=== PATIENT | male | born 1955 | race Caucasian/White ===

== ENCOUNTER 2020-09-07 14:18 | Outpatient (REF) | payer MEDICARE, MEDICAID, SELFPAY | END 2020-09-07 14:19 | disposition home or self-care (01) | LOC: HO.LAB 14:18 | PROVIDERS: Visit Provider Internal Medicine | DX: Z20.828 Contact with and (suspected) exposure to other viral communicable diseases (principal) | CPT/HCPCS: C9803; U0003 ==

== ENCOUNTER 2021-02-28 12:50 | Outpatient (REF) | payer MEDICARE, SELFPAY ==
--- NOTE | ~2021-02-28 | XR_ITS ---
EXAMINATION: XR SHOULDER, RIGHT CLINICAL INFORMATION: Right shoulder pain. COMPARISON: 11/29/2019 right shoulder radiographs. TECHNIQUE: AP external rotation, Grashey, scapular Y, and axillary views of the right shoulder. FINDINGS: The humeral head is positioned mildly superiorly relative to the bony glenoid with narrowing of the subacromial space. Mild calcification is seen in the region of the rotator cuff insertion. Mild right acromioclavicular degenerative joint changes are seen. There is no acute fracture or dislocation. The soft tissues are unremarkable. XR/XR shoulder RT min 2V IMPRESSION: Evidence for chronic rotator cuff tear with associated mild degenerative changes, but no acute abnormality.
== END 2021-02-28 12:51 | disposition home or self-care (01) ==
LOC: HO.XRAY 12:50
PROVIDERS: PCP Internal Medicine; Visit Provider Internal Medicine
DX: M25.511 Pain in right shoulder (principal)
CPT/HCPCS: 73030

== ENCOUNTER → 2021-04-08 13:09 | Outpatient (BNVA) | payer MEDICARE, SELFPAY | PROVIDERS: PCP Internal Medicine; Visit Provider Orthopaedic Surgery | DX: M12.811 Other specific arthropathies, not elsewhere classified, right shoulder (principal) | CPT/HCPCS: 20610; 99212; J1100 ==

== ENCOUNTER → 2021-09-19 10:33 | Outpatient (BNVA) | payer MEDICARE, SELFPAY | PROVIDERS: Visit Provider Orthopaedic Surgery | DX: M12.811 Other specific arthropathies, not elsewhere classified, right shoulder (principal) | CPT/HCPCS: 20610; 99212; J1100 ==

== ENCOUNTER → 2022-03-13 10:07 | Outpatient (BNVA) | payer MEDICARE, MEDICAID, SELFPAY | PROVIDERS: PCP Internal Medicine; Referring Provider Internal Medicine; Visit Provider Surgery | DX: D17.21 Benign lipomatous neoplasm of skin and subcutaneous tissue of right arm (principal) | CPT/HCPCS: 99202 ==

== ENCOUNTER 2023-02-26 08:38 | Outpatient (REF) | payer MEDICARE, MEDICAID, SELFPAY ==
--- NOTE | ~2023-02-26 | XR_ITS ---
EXAMINATION: XR SHOULDER, BILATERAL COMPARISON: None available. . TECHNIQUE: 3 views each shoulder. FINDINGS: RIGHT SHOULDER: There is minimal subluxation of the humeral head in relation to glenoid likely from rotator cuff injury or partial tear. The glenohumeral and AC joint space is maintained normal. No visible acute fracture or dislocation seen. The soft tissues are normal. LEFT SHOULDER: The glenohumeral and AC joint alignment is normal. No visible acute fracture or dislocation seen. The soft tissues are normal. XR/XR shoulder RT min 2V IMPRESSION: Mild superior subluxation of right humeral head in relation to glenoid likely from RC tear or injury. The rest of the right shoulder is unremarkable. Unremarkable left shoulder exam.
--- NOTE | ~2023-02-26 | XR_ITS ---
EXAMINATION: XR SHOULDER, BILATERAL COMPARISON: None available. . TECHNIQUE: 3 views each shoulder. FINDINGS: RIGHT SHOULDER: There is minimal subluxation of the humeral head in relation to glenoid likely from rotator cuff injury or partial tear. The glenohumeral and AC joint space is maintained normal. No visible acute fracture or dislocation seen. The soft tissues are normal. LEFT SHOULDER: The glenohumeral and AC joint alignment is normal. No visible acute fracture or dislocation seen. The soft tissues are normal. XR/XR shoulder LT min 2V IMPRESSION: Mild superior subluxation of right humeral head in relation to glenoid likely from RC tear or injury. The rest of the right shoulder is unremarkable. Unremarkable left shoulder exam.
== END 2023-02-26 08:39 | disposition home or self-care (01) ==
LOC: HO.HOSX 08:38
PROVIDERS: Visit Provider Orthopaedic Surgery
DX: M12.811 Other specific arthropathies, not elsewhere classified, right shoulder (principal); M25.511 Pain in right shoulder; E11.9 Type 2 diabetes mellitus without complications
CPT/HCPCS: 20610; 73030; 99212; J1100

== ENCOUNTER 2023-04-30 09:19 | Outpatient (REF) | payer MEDICARE, MEDICAID, SELFPAY ==
[2023-04-30 12:32] LABS: Alanine Aminotransferase 23 U/L (0-40); Albumin Level 4.1 g/dL (3.5-5.0); Alkaline Phosphatase 72 U/L (39-117); Anion Gap 11 (12-20); Aspartate Amino Transferase 24 U/L (5-37); Bilirubin Total 0.7 mg/dL (0.0-1.0); Blood Urea Nitrogen 12 mg/dL (9-16); Calcium 9.3 mg/dL (8.4-10.2); Carbon Dioxide 28 mmol/L (22-29); Chloride 106 mmol/L (96-108); Estimated Glomerular Filt Rate > 60; Glucose Random 153 mg/dL (60-115); Potassium 4.2 mmol/L (3.3-5.1); Sodium 141 mmol/L (135-145); Total Protein 6.9 g/dL (6.5-8.0)
[2023-04-30 12:52] LABS: Cholesterol 148 mg/dL; HDL Cholesterol 42 mg/dL; LDL Cholesterol Calculated 87 mg/dl; Triglycerides 95 mg/dL
[2023-04-30 15:27] LABS: Reflex LDLD? No
[2023-05-01 03:35] LABS: HBS Num1 2.78 mIU/mL (0-7.99); HBc Num1 0.08 S/CO (0.00-0.79); HBsAGNum1 0.39 S/CO (0.00-0.99); Hepatitis A Antibody IgM 0.33 Index (0-0.79); Hepatitis B Core Antibody Nonreactive (Nonreactive); Hepatitis B Surface Antigen Negative (Negative); ~HepC Num1 0.08 S/CO (0.00-0.79); ~Hepatitis A Antibody IgM Nonreactive (Nonreactive); ~Hepatitis B Surface Antibody NONREACTIVE (Nonreactive); ~Hepatitis C Antibody Nonreactive (Nonreactive)
[2023-05-03 04:49] LABS: TS Negative Control Passed; TS Panel A 1; TS Panel B 2; TS Positive Control Passed; TSpotTB Negative (Negative)
[2023-05-04 21:08] LABS: Rubella IgG Antibody >33.00 Index; Rubeola IgG (Measles) >300.00 AU/mL
== END 2023-04-30 09:20 | disposition home or self-care (01) ==
LOC: HO.HHCL 09:19
PROVIDERS: Visit Provider Internal Medicine
DX: Z00.00 Encounter for general adult medical examination without abnormal findings (principal); M19.049 Primary osteoarthritis, unspecified hand; E11.65 Type 2 diabetes mellitus with hyperglycemia; E78.00 Pure hypercholesterolemia, unspecified; E11.9 Type 2 diabetes mellitus without complications
CPT/HCPCS: 36415; 80053; 80061; 82306; 86481; 86704; 86706; 86709; 86735; 86762; 86765; 86803; 87340

== ENCOUNTER 2023-09-16 09:01 | Outpatient (REF) | payer OTHER, SELFPAY ==
--- NOTE | ~2023-09-16 | US_ITS ---
EXAMINATION: US ABDOMEN COMPLETE CLINICAL INFORMATION: Upper abdominal pain. COMPARISON: Ultrasound abdomen complete 04/09/2017 and 03/29/2015. TECHNIQUE: Real-time imaging of the abdominal viscera. Limited visualization due to bowel gas. FINDINGS: PANCREAS: Limited visualization of pancreatic tail and head. Imaged portion of pancreatic body is unremarkable. ABDOMINAL AORTA: Nonaneurysmal. INFERIOR VENA CAVA: Visualized portions are normal. LIVER: Increased hepatic parenchymal heterogeneity and echogenicity which could be associated with hepatocellular disease/hepatic steatosis and substantially limits visualization. GALLBLADDER: No gallstones. Borderline gallbladder wall thickening of 0.3 cm. COMMON BILE DUCT: Normal in caliber measuring 0.3 cm in diameter. RIGHT KIDNEY: Midpole 1.4 cm cyst with benign features. There is no indication for follow-up imaging. No hydronephrosis or renal calculi. The kidney measures 11.3 cm in maximum dimension. LEFT KIDNEY: Normal. No hydronephrosis. No renal calculi or focal parenchymal lesions. The kidney measures 11.4 cm in maximum dimension. SPLEEN: Normal. The spleen measures 11.3 cm in maximum dimension. FREE FLUID: None. US/US abdomen complete IMPRESSION: 1. Increased hepatic parenchymal heterogeneity and echogenicity which could be associated with hepatocellular disease/hepatic steatosis and substantially limits visualization. 2. Borderline gallbladder wall thickening of 0.3 cm. No gallstones.
== END 2023-09-16 09:02 | disposition home or self-care (01) ==
LOC: HO.US 09:01
PROVIDERS: PCP Internal Medicine; Visit Provider Internal Medicine
DX: R10.10 Upper abdominal pain, unspecified (principal)
CPT/HCPCS: 76700

== ENCOUNTER 2024-01-26 10:10 | Outpatient (AMB) | payer OTHER, SELFPAY ==
--- NOTE | 2024-01-26 10:14 | MHC.OFFVIS ---
Vital Signs 01/26/24 10:20 Height 5 ft 5 in Weight 154 lb BMI 25.6 BP 111/60 Blood Pressure Location Lt brachial Position Sitting Pulse 83 Intake Visit Reasons: Cholecysttis Intake Note: Patient new consult for Cholecystitis Patient cc: bloating, denies any other GI issues. Rda Required: No Accompanied by: Self / Same As Patient Allergies No Known Allergies Allergy (Verified 01/26/24 10:19) Medication List - Last Reconciled 01/26/24 by Desi Benoit [facility]- aspirin 81 mg PO DAILY doxazosin 4 mg PO DAILY esomeprazole magnesium (Nexium) 40 mg PO DAILY gabapentin 300 mg PO DAILY glipizide 10 mg PO DAILY ketotifen fumarate 0.025%(0.035%) ([place]) 0 drps ophthalmic (eye) loratadine 10 mg PO DAILY metoprolol tartrate 12.5 mg PO DAILY multivitamin with folic acid 400 mcg (Daily-Marvin (with folic acid)) 1 tab PO DAILY semaglutide (Ozempic) 2 mg subcut QWEEK sennosides (Natural Senna Laxative) 17.2 mg (2 x 8.6 mg) PO BEDTIME simvastatin 40 mg PO QPM sitagliptin phosphate (Januvia) 25 mg PO DAILY HPI HPI Cholecysttis: Details: 68-year-old male with past medical history of diabetes, hyperlipidemia, hypertension, GERD is here today for initial consultation. Patient was sent by PCP for evaluating of his gallbladder. Patient had ultrasound in August that showed 3 mm thickness of the gallbladder wall which is high of normal without sludge or stones. Patient denies any right upper quadrant pain or cramping at any time or postprandially. Patient does admit to have pain on the left side of his abdomen mainly in the left upper quadrant. Occasionally patient reports to have left lower quadrant pain. Patient reports to be feeling very gassy and very bloated no matter what he eats. Patient denies any nausea or vomiting. Patient admits to be constipated. Bowel movements every few days and when he has a bowel movement he does not feel like he empties completely. Patient denies any melena, hematochezia, unintentional weight loss or ribbon like stools. Patient denies any dyspepsia, dysphagia [facility] Medical History (Updated 02/26/23 @ 11:33 by Christiano Hatfield) Hypercholesterolemia Diabetes mellitus Surgical History History of eye surgery History of shoulder surgery Social History Alcohol intake: never Patient Tobacco Use Status: Former Tobacco user Current occupational status: disabled Current occupation: rt hand Review of Systems Const Denies weight gain and Denies weight loss ENT Reports no additional complaints, Denies dysphagia and Denies odynophagia Card Reports no additional complaints Resp Reports no additional complaints GI Reports abdominal pain (LUQ), Denies belching, Denies melena, Denies bloating, Denies change in bowel habits, Reports constipation, Denies dysphagia, Denies excessive flatus, Denies dyspepsia, Denies heartburn, Denies diarrhea, Denies loose stools, Denies nausea, Denies odynophagia and Denies vomiting Reports no additional complaints Musc Reports no additional complaints Neuro Reports no additional complaints Psych Reports no additional complaints Endo Reports no additional complaints Physical Exam Vital Signs: Last Vital Signs Pulse 83 01/26/24 10:20 BP 111/60 01/26/24 10:20 BMI result Body Mass Index 25.6 Const General: healthy appearing, no acute distress and well developed Nutritional Appearance: well nourished Orientation/consciousness: patient oriented x3 Resp Effort & Inspection: normal respiratory effort, able to speak in complete sentences, no tracheal deviation and symmetric chest movement Auscultation: clear to auscultation bilaterally Cardio Rate: regular rate GI Inspection: Yes normal to inspection and No distended Palpation (GI): Soft to palpation, not firm, nontender and No hepatosplenomegaly present Auscultation: normal bowel sounds General: Yes no CVA tenderness Back/Spine/Pelvis Back: no CVA tenderness Skin General skin exam: elasticity normal, turgor normal and dry skin Neuro General: patient oriented x3 Psych Appearance: grossly normal Mental Status: mental status grossly normal Results Reviewed Results Reviewed: ABDOMINAL ULTRASOUND FROM AUGUST OF 2023 FINDINGS: PANCREAS: Limited visualization of pancreatic tail and head. Imaged portion of pancreatic body is unremarkable. ABDOMINAL AORTA: Nonaneurysmal. INFERIOR VENA CAVA: Visualized portions are normal. LIVER: Increased hepatic parenchymal heterogeneity and echogenicity which could be associated with hepatocellular disease/hepatic steatosis and substantially limits visualization. GALLBLADDER: No gallstones. Borderline gallbladder wall thickening of 0.3 cm. COMMON BILE DUCT: Normal in caliber measuring 0.3 cm in diameter. RIGHT KIDNEY: Midpole 1.4 cm cyst with benign features. There is no indication for follow-up imaging. No hydronephrosis or renal calculi. The kidney measures 11.3 cm in maximum dimension. LEFT KIDNEY: Normal. No hydronephrosis. No renal calculi or focal parenchymal lesions. The kidney measures 11.4 cm in maximum dimension. SPLEEN: Normal. The spleen measures 11.3 cm in maximum dimension. FREE FLUID: None. US/US abdomen complete IMPRESSION: 1. Increased hepatic parenchymal heterogeneity and echogenicity which could be associated with hepatocellular disease/hepatic steatosis and substantially limits visualization. 2. Borderline gallbladder wall thickening of 0.3 cm. No gallstones. Assessment & Plan Assessment & Plan (1) Abdominal pain, LUQ (left upper quadrant): Code(s): R10.12 - Left upper quadrant pain (2) Postprandial abdominal bloating: Code(s): R14.0 - Abdominal distension (gaseous) (3) Constipation: Code(s): K59.00 - Constipation, unspecified Qualifiers: Constipation type: slow transit constipation Qualified Code(s): K59.01 - Slow transit constipation (4) Chronic left lower quadrant pain: Code(s): R10.32 - Left lower quadrant pain; G89.29 - Other chronic pain (5) GERD (gastroesophageal reflux disease): Code(s): K21.9 - Gastro-esophageal reflux disease without esophagitis Qualifiers: Esophagitis presence: esophagitis presence not specified Qualified Code(s): K21.9 - Gastro-esophageal reflux disease without esophagitis Plan Patient had suboptimal control of his diabetes. Metformin was causing him diarrhea and abdominal discomfort. Patient will started on Ozempic couple months ago and is doing well. However patient does admit to have acid reflux. States that omeprazole has not been working. Will start Nexium daily. Patient was encouraged to avoid dietary triggers and late night snacking. Staying upright for minimum 3 hours after meals discussed with patient. Patient was encouraged to increase fluid intake and activity to promote better bowel motility. Low FODMAP diet discussed with patient. List of food recommended as well as list of food to avoid given to patient. Patient will also start taking Senokot daily to help him eliminate his bowels better. He will return in 5-6 weeks to re-evaluate, sooner on as needed basis. Will hold off on checking his lipase or liver enzymes as his pain is mainly located in the left lower quadrant. Possible gas trapping pain in sigmoid colon, possible diverticulosis unlikely diverticulitis. Patient is agreeable to of care and verbalizes understanding of instructions. He was given the opportunity to ask questions and all questions answered Thank you for allowing me to participate in his care Medications: New esomeprazole magnesium (Nexium) 40 mg PO DAILY 30 caps 5RF K21.9 - Gastro-esophageal reflux disease without esophagitis sennosides (Natural Senna Laxative) 17.2 mg (2 x 8.6 mg) PO BEDTIME 60 tabs 3RF constipation K59.00 - Constipation, unspecified Coding Level of Care Code New Pt Level 4 (14827) Diagnoses Abdominal pain, LUQ (left upper quadrant) R10.12 Postprandial abdominal bloating R14.0 Slow transit constipation K59.01 Constipation type: slow transit constipation Chronic left lower quadrant pain R10.32; G89.29 Gastroesophageal reflux disease, unspecified whether esophagitis present K21.9 Esophagitis presence: esophagitis presence not specified Time Spent (min) 45 Comment 30 minutes spent with patient and additional 10 minutes spent reviewing his records
[2024-01-26 10:20] VITALS: BP 111/60; PULSE 83; BMI 25.6
== END 2024-01-26 10:50 | disposition home or self-care (01) ==
PROVIDERS: PCP Internal Medicine; Visit Provider Nurse Practitioner Family
DX: R10.12 Left upper quadrant pain (principal); R14.0 Abdominal distension (gaseous); K59.01 Slow transit constipation; R10.32 Left lower quadrant pain; G89.29 Other chronic pain; K21.9 Gastro-esophageal reflux disease without esophagitis
CPT/HCPCS: 99204

== ENCOUNTER → 2024-01-26 10:10 | Outpatient (BNVA) | payer OTHER, SELFPAY | PROVIDERS: PCP Internal Medicine; Visit Provider Nurse Practitioner Family | DX: R10.12 Left upper quadrant pain (principal); R14.0 Abdominal distension (gaseous); K59.01 Slow transit constipation; G89.29 Other chronic pain; R10.32 Left lower quadrant pain; K21.9 Gastro-esophageal reflux disease without esophagitis; E11.9 Type 2 diabetes mellitus without complications | CPT/HCPCS: 99202 ==

== ENCOUNTER 2024-04-27 09:27 | Outpatient (AMB) | payer OTHER, SELFPAY ==
--- NOTE | 2024-04-27 09:35 | MHC.OFFVIS ---
Vital Signs 04/27/24 09:43 Height 5 ft 5 in Weight 156 lb 15.506 oz BMI 26.1 BP 120/70 Blood Pressure Location Rt brachial Position Sitting Pulse 76 Pulse Source Pulse Oximeter Pulse Oximetry (%) 96 Oxygen Delivery Method Room Air Intake Visit Reasons: 3 mos FUV. Intake Note: Rajan presents in office today for a scheduled 3 mos FUV. CC; Rajan was rx'd senna and nexium at their last visit. No labs were ordered. Pt reports that their sx have improved since their last visit. Pt denies any persistent sx or concerns at this time. Residential Building Inspector Required: No Allergies No Known Allergies Allergy (Verified 04/27/24 09:37) HPI HPI 3 mos FUV.: Details: LAST VISIT: Abdominal pain, LUQ (left upper quadrant) Postprandial abdominal bloating Constipation Chronic left lower quadrant pain GERD (gastroesophageal reflux disease) Plan Patient had suboptimal control of his diabetes. Metformin was causing him diarrhea and abdominal discomfort. Patient will started on Ozempic couple months ago and is doing well. However patient does admit to have acid reflux. States that omeprazole has not been working. Will start Nexium daily. Patient was encouraged to avoid dietary triggers and late night snacking. Staying upright for minimum 3 hours after meals discussed with patient. Patient was encouraged to increase fluid intake and activity to promote better bowel motility. Low FODMAP diet discussed with patient. List of food recommended as well as list of food to avoid given to patient. Patient will also start taking Senokot daily to help him eliminate his bowels better. He will return in 5-6 weeks to re-evaluate, sooner on as needed basis. Will hold off on checking his lipase or liver enzymes as his pain is mainly located in the left lower quadrant. Possible gas trapping pain in sigmoid colon, possible diverticulosis unlikely diverticulitis. Patient is agreeable to of care and verbalizes understanding of instructions. He was given the opportunity to ask questions and all questions answered ? Thank you for allowing me to participate in his care Medications New esomeprazole magnesium (Nexium) 40 mg PO DAILY 30 caps 5RF K21.9 sennosides (Natural Senna Laxative) 17.2 mg (2 x 8.6 mg) PO BEDTIME 60 tabs 3RF constipation K59.00 TODAY'S VISIT Patient is here today follow-up. Patient reports that he finishes radiation treatment yesterday for prostate CA. patient continues to have postprandial abdominal bloating and left upper quadrant pain. Occasional right upper quadrant pain however not related to meals. Patient does admit that depending on what he eats he will have abdominal bloating. He continues to have trouble moving his bowels. Patient reports that he never received Senokot from pharmacy. Patient denies any nausea or vomiting. Denies any melena, hematochezia. Patient reports that his last colonoscopy was more than 10 years ago. Patient denies any family history of CRC symptoms of acid reflux are suppressed for the most part. Patient Nexium and reports that he is feeling better. Denies dyspepsia, dysphagia or odynophagia. PFSH Medical History Hypercholesterolemia Diabetes mellitus Surgical History History of eye surgery History of shoulder surgery Social History Alcohol intake: never Patient Tobacco Use Status: Former Tobacco user Current occupational status: disabled Current occupation: rt hand Review of Systems Const Denies weight gain and Denies weight loss ENT Reports no additional complaints, Denies dysphagia and Denies odynophagia Card Reports no additional complaints Resp Reports no additional complaints GI Reports abdominal pain (LUQ, RUQ), Denies belching, Denies melena, Denies bloating, Denies change in bowel habits, Reports constipation, Denies dysphagia, Denies excessive flatus, Denies dyspepsia, Denies heartburn, Denies diarrhea, Denies loose stools, Denies nausea, Denies odynophagia and Denies vomiting Reports no additional complaints Musc Reports no additional complaints Neuro Reports no additional complaints Psych Reports no additional complaints Endo Reports no additional complaints Physical Exam Vital Signs: Last Vital Signs Pulse 76 04/27/24 09:43 BP 120/70 08/07/24 09:43 Pulse Ox 96 04/27/24 09:43 Oxygen Delivery Method Room Air 04/27/24 09:43 BMI result Body Mass Index 26.1 Const General: healthy appearing, no acute distress and well developed Nutritional Appearance: well nourished Orientation/consciousness: patient oriented x3 Resp Effort & Inspection: normal respiratory effort, able to speak in complete sentences, no tracheal deviation and symmetric chest movement Auscultation: clear to auscultation bilaterally Cardio Rate: regular rate GI Inspection: Yes normal to inspection and No distended Palpation (GI): Soft to palpation, not firm, nontender and No hepatosplenomegaly present Auscultation: normal bowel sounds General: Yes no CVA tenderness Back/Spine/Pelvis Back: no CVA tenderness Skin General skin exam: elasticity normal, turgor normal and dry skin Neuro General: patient oriented x3 Psych Appearance: grossly normal Mental Status: mental status grossly normal Assessment & Plan Assessment & Plan (1) Abdominal pain, LUQ (left upper quadrant): Code(s): R10.12 - Left upper quadrant pain (2) Postprandial abdominal bloating: Code(s): R14.0 - Abdominal distension (gaseous) (3) Constipation: Code(s): K59.00 - Constipation, unspecified Qualifiers: Constipation type: slow transit constipation Qualified Code(s): K59.01 - Slow transit constipation (4) Chronic left lower quadrant pain: Code(s): R10.32 - Left lower quadrant pain; G89.29 - Other chronic pain (5) GERD (gastroesophageal reflux disease): Code(s): K21.9 - Gastro-esophageal reflux disease without esophagitis Qualifiers: Esophagitis presence: esophagitis presence not specified Qualified Code(s): K21.9 - Gastro-esophageal reflux disease without esophagitis (6) RUQ abdominal pain: Code(s): R10.11 - Right upper quadrant pain Plan Continue Nexium. Avoid dietary triggers and late night snacking. Staying upright for minimum 3 hours after meals patient. Patient will start taking senna daily. Increase fluid intake and activity to promote better bowel motility. Patient continues to have right upper quadrant pain, however mainly he reports left upper quadrant discomfort will send patient for HIDA scan. Patient will return in 2 months to discuss going for colonoscopy. He is agreeable to this plan and verbalizes understanding of instructions. He was given the opportunity to ask questions and all questions answered. Thank you for allowing me to participate in his care Orders: Orders NM hepatobiliary w pharm Today R10.11 - Right upper quadrant pain Medications: Refilled sennosides (Natural Senna Laxative) 17.2 mg (2 x 8.6 mg) PO BEDTIME 60 tabs 3RF constipation K59.00 - Constipation, unspecified esomeprazole magnesium (Nexium) 40 mg PO DAILY 30 caps 5RF K21.9 - Gastro-esophageal reflux disease without esophagitis Coding Level of Care Code Est Pt Level 3 (18851) Diagnoses Abdominal pain, LUQ (left upper quadrant) R10.12 Postprandial abdominal bloating R14.0 Slow transit constipation K59.01 Constipation type: slow transit constipation Chronic left lower quadrant pain R10.32; G89.29 Gastroesophageal reflux disease, unspecified whether esophagitis present K21.9 Esophagitis presence: esophagitis presence not specified RUQ abdominal pain R10.11 Time Spent (min) 25 Comment 15 minutes spent with patient and additional 10 minutes spent reviewing his records
[2024-04-27 09:43] VITALS: BP 120/70; PULSE 76; O2SAT 96; BMI 26.1
== END 2024-04-27 10:07 | disposition home or self-care (01) ==
PROVIDERS: PCP Internal Medicine; Visit Provider Nurse Practitioner Family
DX: R10.12 Left upper quadrant pain (principal); R14.0 Abdominal distension (gaseous); K59.01 Slow transit constipation; R10.32 Left lower quadrant pain; G89.29 Other chronic pain; K21.9 Gastro-esophageal reflux disease without esophagitis; R10.11 Right upper quadrant pain
CPT/HCPCS: 99213

== ENCOUNTER → 2024-04-27 09:27 | Outpatient (BNVA) | payer OTHER, SELFPAY | PROVIDERS: PCP Internal Medicine; Visit Provider Nurse Practitioner Family | DX: K21.9 Gastro-esophageal reflux disease without esophagitis (principal); K59.01 Slow transit constipation; R10.12 Left upper quadrant pain; R14.0 Abdominal distension (gaseous); R10.32 Left lower quadrant pain; R10.11 Right upper quadrant pain; G89.29 Other chronic pain | CPT/HCPCS: 99212 ==

== ENCOUNTER 2024-05-28 09:54 | Outpatient (REF) | payer OTHER, SELFPAY ==
[2024-05-28 12:00] LABS: Anion Gap 12 (12-20); Blood Urea Nitrogen 13 mg/dL (9-16); Calcium 9.6 mg/dL (8.4-10.2); Carbon Dioxide 27 mmol/L (22-29); Chloride 102 mmol/L (96-108); Cholesterol 182 mg/dL (<200); Estimated Glomerular Filt Rate > 60; Glucose Random 167 mg/dL (60-115); HDL Cholesterol 52 mg/dL (>40); LDL Cholesterol Calculated 111 mg/dL (<100); Potassium 4.1 mmol/L (3.3-5.1); Sodium 137 mmol/L (135-145); Triglycerides 96 mg/dL (<150)
[2024-05-28 12:06] LABS: TSH reflex Free T4 1.05 uIU/mL (0.32-4.0); Vitamin D 25-OH Total 27.9 ng/mL (>30)
[2024-05-28 12:12] LABS: Reflex LDLD? No
== END 2024-05-28 09:55 | disposition home or self-care (01) ==
LOC: HO.LAB 09:54
PROVIDERS: PCP Internal Medicine; Visit Provider Internal Medicine
DX: I10 Essential (primary) hypertension (principal)
CPT/HCPCS: 36415; 80048; 80061; 82306; 84443

== ENCOUNTER → 2024-06-10 08:27 | Outpatient (REF) | payer OTHER, SELFPAY ==
--- NOTE | ~2024-06-10 | NM_ITS ---
EXAMINATION: BILIARY TRACT IMAGING STUDY WITH CCK CLINICAL INFORMATION: Right upper quadrant abdominal pain.. COMPARISON: Abdominal ultrasound done on 09/16/2023.. TECHNIQUE: Serial gamma scintillation camera images were obtained over the abdomen for a total observation period of 60 minutes following the intravenous administration of 5.0 mCi Tc-99m mebrofenin. FINDINGS: There is good concentration of activity in the liver by 5 minutes post injection. Biliary activity is visualized by 10 minutes. The gallbladder is well visualized by 20 minutes. Small bowel is well visualized by 77 minutes. At 60 minutes post radiopharmaceutical injection, a 30-minute infusion of 1.38 micrograms Sincalide was then begun and an additional 40 minutes of images were obtained. There is poor emptying of the gallbladder. By the end of the study there is good clearance of activity from the liver and visualization of diffuse small bowel activity. The calculated gallbladder ejection fraction is 22% (Normal range of gallbladder ejection fraction is between 35-80%; GBEF <35% is considered biliary hypokinesia and >80% is considered biliary hyperkinesia; Ref. #1-Clinical Journal of Gastroenterology (2020) 14:1620-9273; Ref.#2-[email or web address]). NM/NM hepatobiliary w pharm IMPRESSION: Visualization of the gallbladder is evidence of a patent cystic duct and strong evidence against the diagnosis of acute cholecystitis. The common bile duct is patent. Gallbladder emptying and ejection fraction are abnormal. Liver function appears normal. Electronically signed by: Aan Pickard MD 06/10/2024 03:07 PM EDT
== END ==
LOC: HO.NUCMED 08:27
PROVIDERS: PCP Internal Medicine; Visit Provider Nurse Practitioner Family
DX: R10.11 Right upper quadrant pain (principal)
CPT/HCPCS: 78227; A9537; J2805

== ENCOUNTER 2024-08-30 07:22 | Day surgery (SDC) | payer OTHER, SELFPAY ==
[2024-08-26 09:28] VITALS: BMI 26.0
--- NOTE | 2024-08-29 10:03 | HO.ANESPROP2 ---
Documented by User: Rasheeda Carcamo NP 08/29/24 10:03 HPI - Anesthesia Eval Consult details Narrative: 69yo M for Colonoscopy Anesthesia Pre-Procedure Meds Is the patient on any of the following meds?: GLP1/DPP4 and SGLT2 Inhib PMFSH Active Problems Active Problems: All Active Problems Diabetes mellitus (Acute) Lipoma of arm (Acute) Rotator cuff arthropathy of right shoulder (Acute) Past Medical History Medical History (Updated 08/30/24 @ 07:35 by Callie Marlow RN) Prostate cancer Hypercholesterolemia Diabetes mellitus Surgical History Surgical History (Updated 08/30/24 @ 07:34 by Callie Marlow RN) History of eye surgery History of shoulder surgery Social History Social History Alcohol intake: never Patient Tobacco Use Status: Former Tobacco user Use of substances other than those prescribed or required for medical reasons: No Are you DNR?: No Advance Directives: No Advance Directives Information Provided: Yes Recently lost weight without trying: No Nutrition Risks: No Nutritional Risk Poor oral hygiene: No Current occupational status: disabled Current occupation: rt hand Meds Allergies Allergy/AdvReac Type Severity Reaction Status Date / Time No Known Allergies Allergy Verified 04/27/24 09:37 Home Medications ?Medication ?Instructions ?Recorded ?Confirmed ?Last Taken ?Type aspirin 81 mg tablet,delayed 81 mg PO DAILY 03/13/22 01/26/24 Unknown History release doxazosin 4 mg tablet 4 mg PO DAILY 03/13/22 01/26/24 Unknown History gabapentin 300 mg capsule 300 mg PO DAILY 03/13/22 01/26/24 Unknown History ketotifen fumarate 0.025 % (0.035 0 drp ophthalmic (eye) 03/13/22 01/26/24 Unknown History %) eye drops (Alaway) loratadine 10 mg tablet 10 mg PO DAILY 03/13/22 01/26/24 Unknown History multivitamin with folic acid 400 1 tab PO DAILY 03/13/22 01/26/24 Unknown History mcg tablet (Daily-Marvin (with folic acid)) simvastatin 40 mg tablet 40 mg PO QPM 03/13/22 01/26/24 Unknown History sitagliptin phosphate 25 mg tablet 25 mg PO DAILY 01/26/24 01/26/24 Unknown History (Gera) blood sugar diagnostic (OneTouch #10 ea 04/27/24 Unknown History Verio test strips) empagliflozin 25 mg tablet 25 mg PO DAILY 04/27/24 Unknown History (Jardiance) glipizide 10 mg tablet 10 mg PO BID 04/27/24 Unknown History latanoprost 0.005 % eye drops drp ophthalmic (eye) 04/27/24 Unknown History lisinopril 5 mg tablet 5 mg PO DAILY 04/27/24 Unknown History metoprolol succinate 25 mg 25 mg PO DAILY 04/27/24 Unknown History tablet,extended release 24 hr semaglutide 0.25 mg or 0.5 mg (2 mg subcut 04/27/24 Unknown History mg/3 mL) subcutaneous pen injector (Ozempic) tadalafil 20 mg tablet mg PO DIRECTED 04/27/24 Unknown History tamsulosin 0.4 mg capsule 0.8 mg PO DAILY 04/27/24 Unknown History semaglutide 0.25 mg or 0.5 mg (2 0.5 mg subcut QWEEK 08/29/24 08/21/24 History mg/3 mL) subcutaneous pen injector (Ozempic) Exam Height,Weight and Vital Signs: Height 5 ft 5 in Weight 70.76 kg Assessment and Plan Assessment Anesthesia Assessment: Chart Reviewed Documented by User: Bruce Frank MD 08/30/24 08:55 [facility] Past Medical History Medical History (Updated 08/30/24 @ 07:35 by Callie Marlow RN) Prostate cancer Hypercholesterolemia Diabetes mellitus Family History Family history of problems with anesthesia: No Surgical History Surgical History (Updated 08/30/24 @ 07:34 by Callie Marlow RN) History of eye surgery History of shoulder surgery History of Problems with Anesthesia: No Social History Social History Alcohol intake: never Patient Tobacco Use Status: Former Tobacco user Use of substances other than those prescribed or required for medical reasons: No Are you DNR?: No Advance Directives: No Advance Directives Information Provided: Yes Recently lost weight without trying: No Nutrition Risks: No Nutritional Risk Poor oral hygiene: No Current occupational status: disabled Current occupation: rt hand Meds Allergies Allergy/AdvReac Type Severity Reaction Status Date / Time No Known Allergies Allergy Verified 04/27/24 09:37 Home Medications ?Medication ?Instructions ?Recorded ?Confirmed ?Last Taken ?Type aspirin 81 mg tablet,delayed 81 mg PO DAILY 03/13/22 01/26/24 Unknown History release doxazosin 4 mg tablet 4 mg PO DAILY 03/13/22 01/26/24 Unknown History gabapentin 300 mg capsule 300 mg PO DAILY 03/13/22 01/26/24 Unknown History ketotifen fumarate 0.025 % (0.035 0 drp ophthalmic (eye) 03/13/22 01/26/24 Unknown History %) eye drops (Alaway) loratadine 10 mg tablet 10 mg PO DAILY 03/13/22 01/26/24 Unknown History multivitamin with folic acid 400 1 tab PO DAILY 03/13/22 01/26/24 Unknown History mcg tablet (Daily-Marvin (with folic acid)) simvastatin 40 mg tablet 40 mg PO QPM 03/13/22 01/26/24 Unknown History sitagliptin phosphate 25 mg tablet 25 mg PO DAILY 01/26/24 01/26/24 Unknown History (Januvia) blood sugar diagnostic (OneTouch #10 ea 04/27/24 Unknown History Verio test strips) empagliflozin 25 mg tablet 25 mg PO DAILY 04/27/24 Unknown History (Jardiance) glipizide 10 mg tablet 10 mg PO BID 04/27/24 Unknown History latanoprost 0.005 % eye drops drp ophthalmic (eye) 04/27/24 Unknown History lisinopril 5 mg tablet 5 mg PO DAILY 04/27/24 Unknown History metoprolol succinate 25 mg 25 mg PO DAILY 04/27/24 Unknown History tablet,extended release 24 hr semaglutide 0.25 mg or 0.5 mg (2 mg subcut 04/27/24 Unknown History mg/3 mL) subcutaneous pen injector (Ozempic) tadalafil 20 mg tablet mg PO DIRECTED 04/27/24 Unknown History tamsulosin 0.4 mg capsule 0.8 mg PO DAILY 04/27/24 Unknown History semaglutide 0.25 mg or 0.5 mg (2 0.5 mg subcut QWEEK 08/29/24 08/21/24 History mg/3 mL) subcutaneous pen injector (Ozempic) Assessment and Plan Assessment Anesthesia Assessment: Anesthesia Plan Discussed Final Anesthetic Review Family History of Problems with Anesthesia: No History of Problems with Anesthesia: No NPO: Yes ASA Class: III Final Preanesthetic Review: No Changes in Pt Med Stat, Meds/Allgs Chart Reviewed, Consent Obtained/Reviewed and Anes Risks/Benef Reviewed Patient Risk: Intermediate Procedure Risk: Low Anesthetic Plan Anesthetic Plan: MAC: and Agree w/ Assess. and Plan Disposition: Standard PACU
[2024-08-30 07:36] VITALS: BMI 24.2
[2024-08-30 07:46] VITALS: BP 123/78; PULSE 85; RESP 16; TEMP 36.9; O2SAT 96
[2024-08-30 07:54] LABS: Glucose, Whole Blood 204 mg/dL (60-115)
[2024-08-30] MEDS: Lactated Ringers 1,000 ML 100 ML IVCONT (07:58)
--- NOTE | 2024-08-30 08:01 | MHC.SHP ---
Pre-Procedural Eval Section A - 24 Hr Update-Section A only Date of Service: 08/30/24 Section B - Complete if H&P > 30 days Chief Complaint: LUQ pain, hx of polyps Present Medications: see Short Stay Collaborative assessment Allergies: Allergies Allergy/AdvReac Type Severity Reaction Status Date / Time No Known Allergies Allergy Verified 04/27/24 09:37 Review of Systems Review of Systems Comment: Ten point ROS negative Exam Exam Comment: Gen appear: No acute distress HEENT: no icterus Chest: No overt resp distress Abd: soft, nontender, nondistended Psych: Stable affect, answering questions appropriately Neuro: A/Ox3 noted to move all extremities spontaneously Ext: no peripheral edema Plan Diagnosis/Plan: Unchanged I have reviewed the history and physical and performed a pertinent physical examination on my patient. No changes have occurred unless specified. Time Spent With Patient Time: Total time managing care of this patient today ____ minutes.
--- NOTE | 2024-08-30 09:11 | P.OPN-COLO_ITS ---
Colonoscopy Operative Note Operative Note Date of Service: 08/30/24 Narrative: Procedure: Colonoscopy Indication: History of polyps Endoscopist: Micaela Lake MD Anesthesia Provider: Dr Bruce Frank Anesthesia type: MAC Instrument: Olympus [id number]-[id number] Consent: Indication, risks vs benefits, and alternatives were discussed with the patient who gave written informed consent to proceed. EKG, pulse, pulse oximetry and blood pressure were monitored throughout the procedure. Please see anesthesia flowsheet. Procedure: The patient was brought to the procedure room and placed in the left lateral decubitus position. IV medications were administered by the anesthesia provider in attendance. A digital rectal exam was performed which was normal. A distal attachment cap was affixed to the tip of the colonoscope which was then inserted through the anus and advanced through the colon to the cecum at 75 cm,and terminal ileum. Appendiceal orifice and ileocecal valve were identified. Mucosa was carefully examined under high definition white light as the instrument was slowly withdrawn in a retrograde panoramic fashion. Retroflexion was performed in ascending colon and rectum. The procedure was not difficult. There were no immediate obvious complications. The quality of the prep was BBPS: 2+3+2 = adequate Withdrawal time 11 minutes. Limitations: No limitations. Findings: Mucosa: Edema and loss of normal vascular pattern noted throughout the colon dolly on the LEFT side suspicious for underlying microscopic colitis. Cold forceps biopsies were taken from the right and left side. Protruding lesions: * Large internal hemorrhoids without stigmata of recent bleeding. Excavated lesions: * Moderate diverticulosis of left sided colon. Impression: 1. Abnormal colon mucosa (biopsy) 2. Internal hemorrhoids 3. Diverticulosis Recommendations: - Follow path results. - Repeat colonoscopy in 10 years if patient in good health.
[2024-08-30 09:14] VITALS: BP 95/61; PULSE 89; RESP 18; TEMP 36.7; O2SAT 95
[2024-08-30 09:31] VITALS: BP 117/77; PULSE 84; RESP 18; TEMP 36.7; O2SAT 97
== END 2024-08-30 09:53 | disposition home or self-care (01) ==
PROVIDERS: PCP Internal Medicine; Visit Provider Internal Medicine
PROC: 0DJD8ZZ Inspection of Lower Intestinal Tract, Via Natural or Artificial Opening Endoscopic (ICD-10-PCS; CPT 45378; principal; 2024-08-30 08:30)
DX: R10.12 Left upper quadrant pain (principal); G89.29 Other chronic pain; Z86.0101 Personal history of adenomatous and serrated colon polyps; K63.9 Disease of intestine, unspecified; K57.30 Diverticulosis of large intestine without perforation or abscess without bleeding; K64.8 Other hemorrhoids; R14.0 Abdominal distension (gaseous); K59.01 Slow transit constipation; K21.9 Gastro-esophageal reflux disease without esophagitis; C61 Malignant neoplasm of prostate; Z92.3 Personal history of irradiation; E11.9 Type 2 diabetes mellitus without complications; E78.00 Pure hypercholesterolemia, unspecified; Z79.84 Long term (current) use of oral hypoglycemic drugs; Z79.899 Other long term (current) drug therapy; Z87.891 Personal history of nicotine dependence
CPT/HCPCS: 45380; 82947; 88305; J2003; J2704

== ENCOUNTER → 2024-08-30 07:22 | Outpatient (BNV) | payer OTHER, SELFPAY | PROVIDERS: PCP Internal Medicine; Visit Provider Internal Medicine | DX: Z12.11 Encounter for screening for malignant neoplasm of colon (principal); Z86.0100 Personal history of colon polyps, unspecified; K57.30 Diverticulosis of large intestine without perforation or abscess without bleeding; K64.8 Other hemorrhoids | CPT/HCPCS: 45380 ==

== ENCOUNTER 2024-09-27 12:54 | Outpatient (AMB) | payer OTHER, SELFPAY ==
--- NOTE | 2024-09-27 13:11 | MHC.OFFVIS ---
Vital Signs 09/27/24 13:12 Height 5 ft 6 in Weight 153 lb BMI 24.7 BP 109/59 L Blood Pressure Location Lt brachial Position Sitting Pulse 87 Intake Visit Reasons: s/p colon Intake Note: Patient follow up for Colonoscopy results Patient cc: abdominal bloating, acid reflex and constipation. Denies any other GI issues for today. Community Marketing Manager Required: Yes Community Marketing Manager Name: [facility] [place] [facility] Accompanied by: Self / Same As Patient Allergies No Known Allergies Allergy (Verified 09/27/24 13:07) HPI HPI s/p colon: Details: LAST VISIT: Abdominal pain, LUQ (left upper quadrant) Postprandial abdominal bloating Constipation Chronic left lower quadrant pain GERD (gastroesophageal reflux disease) RUQ abdominal pain Plan Continue Nexium. Avoid dietary triggers and late night snacking. Staying upright for minimum 3 hours after meals patient. Patient will start taking senna daily. Increase fluid intake and activity to promote better bowel motility. Patient continues to have right upper quadrant pain, however mainly he reports left upper quadrant discomfort will send patient for HIDA scan. Patient will return in 2 months to discuss going for colonoscopy. He is agreeable to this plan and verbalizes understanding of instructions. He was given the opportunity to ask questions and all questions answered. ? Thank you for allowing me to participate in his care Orders Orders NM hepatobiliary w pharm Today R10.11 Medications Refilled sennosides (Natural Senna Laxative) 17.2 mg (2 x 8.6 mg) PO BEDTIME 60 tabs 3RF constipation K59.00 esomeprazole magnesium (Nexium) 40 mg PO DAILY 30 caps 5RF K21.9 COLONOSCOPY: Findings: Mucosa: Edema and loss of normal vascular pattern noted throughout the colon dolly on the LEFT side suspicious for underlying microscopic colitis. Cold forceps biopsies were taken from the right and left side. Protruding lesions: Large internal hemorrhoids without stigmata of recent bleeding. Excavated lesions: Moderate diverticulosis of left sided colon. Impression: 1. Abnormal colon mucosa (biopsy) 2. Internal hemorrhoids 3. Diverticulosis Recommendations: - Follow path results. - Repeat colonoscopy in 10 years if patient in good health. PATOLOGY: Diagnosis A. Colon, right, biopsy: Colonic mucosa with focal ectatic and irregular vessels, otherwise no specific change (see comment). B. Colon, left, biopsy: Colonic mucosa with focal ectatic and irregular vessels, otherwise no specific change (see comment). Comment: There is no evidence of microscopic colitis. The findings raise the possibility of chronic radiation injury/colitis and clinical correlation is necessary LAST VISIT Patient is here today for follow-up and to discuss colonoscopy results. Patient denies any ill effects from the prep, anesthesia or procedure itself. Patient however reports ongoing pain in his abdomen. Patient reports that the pain is mostly on his left side. HIDA scan shows 22% EF of the gallbladder biliary hyperkinesia. Patient reports that he does not have abdominal pain in the right upper quadrant anymore after meals. Colonoscopy without any polyps, however patient does have moderate diverticulosis in the left side of his colon which would explain the pain that feels colicky. Patient also reports that he is not moving his bowels. Patient states that he takes Senokot however he states that he still feels constipated. Patient denies melena, hematochezia, denies diarrhea or mucus in his stools. Patient reports that he is not taking Nexium and he states that he is not having any acid reflux. Denies dyspepsia, dysphagia or odynophagia. [facility] Medical History (Updated 09/27/24 @ 20:05 by Desi Benoit [facility]) Diverticulosis Prostate cancer Hypercholesterolemia Diabetes mellitus Surgical History History of eye surgery History of shoulder surgery Social History Alcohol intake: never Patient Tobacco Use Status: Former Tobacco user Current occupational status: disabled Current occupation: rt hand Review of Systems Const Denies weight gain and Denies weight loss ENT Reports no additional complaints, Denies dysphagia and Denies odynophagia Card Reports no additional complaints Resp Reports no additional complaints GI Denies abdominal pain, Denies belching, Denies melena, Reports bloating, Denies change in bowel habits, Reports constipation, Denies dysphagia, Denies excessive flatus, Denies dyspepsia, Denies heartburn, Denies diarrhea, Denies loose stools, Denies nausea, Denies odynophagia and Denies vomiting Reports no additional complaints Musc Reports no additional complaints Neuro Reports no additional complaints Psych Reports no additional complaints Endo Reports no additional complaints Physical Exam Vital Signs: Last Vital Signs Pulse 87 09/27/24 13:12 BP 109/59 L 09/27/24 13:12 BMI result Body Mass Index 24.7 Const General: healthy appearing, no acute distress and well developed Nutritional Appearance: well nourished Orientation/consciousness: patient oriented x3 Resp Effort & Inspection: normal respiratory effort, able to speak in complete sentences, no tracheal deviation and symmetric chest movement Auscultation: clear to auscultation bilaterally Cardio Rate: regular rate GI Inspection: Yes normal to inspection and No distended Palpation (GI): Soft to palpation, not firm, nontender and No hepatosplenomegaly present Auscultation: normal bowel sounds General: Yes no CVA tenderness Back/Spine/Pelvis Back: no CVA tenderness Skin General skin exam: elasticity normal, turgor normal and dry skin Neuro General: patient oriented x3 Psych Appearance: grossly normal Mental Status: mental status grossly normal Results Reviewed Results Reviewed: HIDA SCAN The calculated gallbladder ejection fraction is 22% (Normal range of gallbladder ejection fraction is between 35-80%; GBEF <35% is considered biliary hypokinesia and >80% is considered biliary hyperkinesia; Ref. #1-Clinical Journal of Gastroenterology (2020) 14:7334-3516; Ref.#2-[email or web address]). NM/NM hepatobiliary w pharm IMPRESSION: Visualization of the gallbladder is evidence of a patent cystic duct and strong evidence against the diagnosis of acute cholecystitis. The common bile duct is patent. Gallbladder emptying and ejection fraction are abnormal. Liver function appears normal. Assessment & Plan Assessment & Plan (1) Diverticulosis: Code(s): K57.90 - Diverticulosis of intestine, part unspecified, without perforation or abscess without bleeding Category: Medical (2) Abdominal pain, LUQ (left upper quadrant): Code(s): R10.12 - Left upper quadrant pain (3) Postprandial abdominal bloating: Code(s): R14.0 - Abdominal distension (gaseous) (4) Constipation: Code(s): K59.00 - Constipation, unspecified Qualifiers: Constipation type: slow transit constipation Qualified Code(s): K59.01 - Slow transit constipation (5) Chronic left lower quadrant pain: Code(s): R10.32 - Left lower quadrant pain; G89.29 - Other chronic pain (6) GERD (gastroesophageal reflux disease): Code(s): K21.9 - Gastro-esophageal reflux disease without esophagitis Qualifiers: Esophagitis presence: esophagitis presence not specified Qualified Code(s): K21.9 - Gastro-esophageal reflux disease without esophagitis (7) RUQ abdominal pain: Code(s): R10.11 - Right upper quadrant pain Plan Biliary hyperkinesia, however patient does not require surgery as he is asymptomatic. His pain is more in the left upper quadrant and left lower quadrant. No pain after meals in the right upper quadrant. Patient will start taking Dulcolax daily.. Increase fluid intake and activity to promote better bowel motility. Patient will increase fiber intake. May take [id number] fiber supplements with probiotics. Simethicone ordered for patient. Discussed with patient low FODMAP diet. List of food recommended as well as list of food to avoid given to patient. No polyps found, colonoscopy in asymptomatic patient in 10 years, sooner if clinically necessary. Patient will turned to the office in 3 months, sooner on as needed basis. He is agreeable to this plan and verbalizes understanding of instructions. He was given the opportunity to ask questions and all questions answered. Thank you for allowing me to participate in his care Medications: New simethicone 125 mg PO BID-QID PRN 120 caps 3RF abdominal distention K21.9 - Gastro-esophageal reflux disease without esophagitis bisacodyl (Dulcolax (bisacodyl)) 10 mg (2 x 5 mg) PO BEDTIME 180 tabs 4RF Discontinued bisacodyl (Dulcolax (bisacodyl)) take at noon the day before colonoscopy Discontinued Reason: Patient no longer taking 20 mg (4 x 5 mg) PO ONCE 1 day 4 tabs 0RF bisacodyl (Dulcolax (bisacodyl)) the day before colonoscopy take 2 pills at 12pm and 2 pills at 5pm with plenty of water Discontinued Reason: Patient no longer taking 20 mg (4 x 5 mg) PO ONCE 1 day 4 tabs 0RF polyethylene glycol 3350 (Miralax) THE DAY BEFORE your procedure mix entire bottle with 64 ounces of a clear liquid. Start drinking at 5pm - 1 cup every 15 minutes until half is gone. AT 10PM finish drinking remaining prep. Discontinued Reason: Patient no longer taking 238 grams PO ONCE 1 day 238 grams 0RF sennosides (Natural Senna Laxative) Discontinued Reason: Patient no longer taking 17.2 mg (2 x 8.6 mg) PO BEDTIME 60 tabs 3RF constipation K59.00 - Constipation, unspecified esomeprazole magnesium (Nexium) Discontinued Reason: Doctor's Order 40 mg PO DAILY 30 caps 5RF K21.9 - Gastro-esophageal reflux disease without esophagitis polyethylene glycol 3350 (Miralax) the DAY BEFORE your procedure MIX ENTIRE BOTTLE with 64 OUNCES OF A CLEAR LIQUID. AT 5PM Start drinking 1 cup every 15minutes until half is gone. AT 10pm finish drinking remaining prep. Discontinued Reason: Stopped on Transfer 238 grams PO ONCE 1 day 238 grams 0RF Coding Level of Care Code Est Pt Level 4 (18598) Diagnoses Diverticulosis K57.90 Abdominal pain, LUQ (left upper quadrant) R10.12 Postprandial abdominal bloating R14.0 Slow transit constipation K59.01 Constipation type: slow transit constipation Chronic left lower quadrant pain R10.32; G89.29 Gastroesophageal reflux disease, unspecified whether esophagitis present K21.9 Esophagitis presence: esophagitis presence not specified RUQ abdominal pain R10.11 Time Spent (min) 35 Comment 25 minutes spent with patient and additional 10 minutes spent reviewing his records
[2024-09-27 13:12] VITALS: BP 109/59; PULSE 87; BMI 24.7
== END 2024-09-27 13:36 | disposition home or self-care (01) ==
PROVIDERS: PCP Internal Medicine; Visit Provider Nurse Practitioner Family
DX: K57.90 Diverticulosis of intestine, part unspecified, without perforation or abscess without bleeding (principal); R10.12 Left upper quadrant pain; R14.0 Abdominal distension (gaseous); K59.01 Slow transit constipation; R10.32 Left lower quadrant pain; G89.29 Other chronic pain; K21.9 Gastro-esophageal reflux disease without esophagitis; R10.11 Right upper quadrant pain
CPT/HCPCS: 99214

== ENCOUNTER → 2024-09-27 12:54 | Outpatient (BNVA) | payer OTHER, SELFPAY | PROVIDERS: PCP Internal Medicine; Visit Provider Nurse Practitioner Family | DX: K21.9 Gastro-esophageal reflux disease without esophagitis (principal); R10.11 Right upper quadrant pain; R14.0 Abdominal distension (gaseous); R10.32 Left lower quadrant pain; K57.90 Diverticulosis of intestine, part unspecified, without perforation or abscess without bleeding; K59.01 Slow transit constipation; G89.29 Other chronic pain | CPT/HCPCS: 99212 ==

== ENCOUNTER 2024-12-28 10:44 | Outpatient (AMB) | payer OTHER, SELFPAY ==
--- NOTE | 2024-12-28 10:49 | A.OFFVIS_ITS ---
Vital Signs 12/28/24 11:00 Height 5 ft 6 in Weight 159 lb 9.835 oz BMI 25.8 BP 116/76 Blood Pressure Location Rt brachial Position Sitting Pulse 92 Pulse Source Pulse Oximeter Pulse Oximetry (%) 96 Oxygen Delivery Method Room Air Intake Visit Reasons: 3 Month f/u Abd pain Intake Note: ESTABLISHED PATIENT for mgmt chronic abd pain. Changes/concerns? C/O bloating, gas which has remained persistent from last visit. Pt states there has been mild improvement but he still experiences sx frequently. Mixed results with simethicone. Pt taking dulcolax now in the AM instead of PM due to negative effect on ADLs (work). Security Rover Required: No Accompanied by: Self / Same As Patient Allergies No Known Allergies Allergy (Verified 12/28/24 10:49) HPI HPI 3 Month f/u Abd pain: Details: LAST VISIT Diverticulosis Abdominal pain, LUQ (left upper quadrant) Postprandial abdominal bloating Constipation Chronic left lower quadrant pain GERD (gastroesophageal reflux disease) RUQ abdominal pain Plan Biliary hyperkinesia, however patient does not require surgery as he is asymptomatic. His pain is more in the left upper quadrant and left lower quadrant. No pain after meals in the right upper quadrant. Patient will start taking Dulcolax daily.. Increase fluid intake and activity to promote better bowel motility. Patient will increase fiber intake. May take [id number] fiber supplements with probiotics. Simethicone ordered for patient. Discussed with patient low FODMAP diet. List of food recommended as well as list of food to avoid given to patient. No polyps found, colonoscopy in asymptomatic patient in 10 years, sooner if clinically necessary. Patient will turned to the office in 3 months, sooner on as needed basis. He is agreeable to this plan and verbalizes understanding of instructions. He was given the opportunity to ask questions and all questions answered. ? Thank you for allowing me to participate in his care Medications New simethicone 125 mg PO BID-QID PRN 120 caps 3RF abdominal distention K21.9 bisacodyl (Dulcolax (bisacodyl)) 10 mg (2 x 5 mg) PO BEDTIME 180 tabs 4RF TODAY'S VISIT Patient is here today for follow-up. Patient reports that he started taking Dulcolax and is able to move his bowels better. Not always takes it every day. He continues to have abdominal bloating. Uses simethicone once or twice a day. Patient also started take fiber daily. Has not changed his diet. Denies any nausea or vomiting. Denies any dyspepsia, dysphagia or odynophagia. Denies melena, hematochezia. Denies any other GI concerning symptoms. [facility], [facility] Medical History Diverticulosis Prostate cancer Hypercholesterolemia Diabetes mellitus Surgical History History of eye surgery History of shoulder surgery Social History Alcohol intake: never Patient Tobacco Use Status: Former Tobacco user Current occupational status: disabled Current occupation: rt hand Review of Systems Const Denies weight gain and Denies weight loss ENT Reports no additional complaints, Denies dysphagia and Denies odynophagia Card Reports no additional complaints Resp Reports no additional complaints GI Denies abdominal pain, Denies belching, Denies melena, Reports bloating, Denies change in bowel habits, Reports constipation, Denies dysphagia, Denies excessive flatus, Denies dyspepsia, Denies heartburn, Denies diarrhea, Denies loose stools, Denies nausea, Denies odynophagia and Denies vomiting Reports no additional complaints Musc Reports no additional complaints Neuro Reports no additional complaints Psych Reports no additional complaints Endo Reports no additional complaints Physical Exam Const General: healthy appearing, no acute distress and well developed Nutritional Appearance: well nourished Orientation/consciousness: patient oriented x3 Resp Effort & Inspection: normal respiratory effort, able to speak in complete sentences, no tracheal deviation and symmetric chest movement Auscultation: clear to auscultation bilaterally Cardio Rate: regular rate GI Inspection: Yes normal to inspection and No distended Palpation (GI): Soft to palpation, not firm, nontender and No hepatosplenomegaly present Auscultation: normal bowel sounds General: Yes no CVA tenderness Back/Spine/Pelvis Back: no CVA tenderness Skin General skin exam: elasticity normal, turgor normal and dry skin Neuro General: patient oriented x3 Psych Appearance: grossly normal Mental Status: mental status grossly normal Assessment & Plan Assessment & Plan (1) Diverticulosis: Code(s): K57.90 - Diverticulosis of intestine, part unspecified, without perforation or abscess without bleeding Category: Medical (2) Postprandial abdominal bloating: Code(s): R14.0 - Abdominal distension (gaseous) (3) Constipation: Code(s): K59.00 - Constipation, unspecified Qualifiers: Constipation type: slow transit constipation Qualified Code(s): K59.01 - Slow transit constipation (4) Chronic left lower quadrant pain: Code(s): R10.32 - Left lower quadrant pain; G89.29 - Other chronic pain Plan Continue Dulcolax daily. Increase fluid intake and activity to promote better bowel motility. Patient will increase more vegetables. Discuss with him low FODMAP diet. List of food recommended as well as list of food to avoid given to patient in Maltese. Follow-up in 6 months, sooner on as needed basis. He is agreeable to this plan and verbalizes understanding of instructions. He was given the opportunity to ask questions and all questions answered. Thank you for allowing me to participate in his care Coding Level of Care Code Est Pt Level 3 (80161) Diagnoses Diverticulosis K57.90 Postprandial abdominal bloating R14.0 Slow transit constipation K59.01 Constipation type: slow transit constipation Chronic left lower quadrant pain R10.32; G89.29 Time Spent (min) 25 Comment 15 minutes spent with patient and additional 10 minutes spent reviewing his records
[2024-12-28 11:00] VITALS: BP 116/76; PULSE 92; O2SAT 96; BMI 25.8
--- OUTSIDE RECORDS SUMMARY | 2024-12-28 12:26 | XMS_ITS | Encounter Summary ---
Author Organization [employer] Address [address] [place] [address] Care Team Providers Care Sap Bi Architect Name Role Phone Carie Camargo MD Primary Care Provider + Jatinder Ibarrashin Unavailable [phone] Reason for Visit * Reason Comments Med Refill Encounter Details Date Type Department Care Team (Late st Contact Info) Description 09/26/2023 Refill [facility] MEDICINE [address] [place], [place] [phone] Carie Camargo MD [address] [place] [address] Type 2 diabetes mellitus with hyperglycemia, without long-term current use of insulin ([facility]); Encounter for preventive health examination Social History Tobacco Use Types Packs/Day Years Used Date Smoking Tobacco: Never Smokeless Tobacco: Never Alcohol Use Standard Drinks/Week Comments Never 0 (1 standard drink = 0.6 oz pur e alcohol) Housing Stability Answer Date Recorded What is your housing situation today? I have ct batista 07/09/[address] you li ve. Do you have problems with any of the following? None of the above 07/09/2023 Food Insecurity Answer Date Recorded Within the past 12 months, y ou worried that your food would run out before you got money to buy more: Never True 07/09/2023 Within the past 12 months,th e food you bought just didn't last and you didn't have enough money to get more: Never True Transportation Answer Date Recorded In the past 12 months, has l ack of transportation kept you from medical appts, meetings, work or from getting things needed for daily living? No 07/09/2023 Utilities Answer Date Recorded In the past 12 months, has t he electric, gas, oil or water company threatened to shut off services in your home? No 07/09/2023 Depression Answer Date Recorded Patient Health Questionnaire-2 Score 0 03/31/2023 Sex and Gender Information Value Date Recorded Sex Assigned at Male 07/21/2022 10:16 AM EDT Legal Sex Male 10:16 AM EDT Gender Identity Male 07/21/2022 10:16 AM EDT Sexual Orientation Straight 07/21/2022 10 :16 AM EDT documented as of this encounter Plan of Treatment Upcoming Encounters Date Type Department Care Team (Late st Contact Info) Description 01/06/2025 10:45 AM EDT Office Visit [facility] CHC ADULT DENTAL [address] [place] [address] Leisa Ibarra [address] [place] [address] 02/03/2025 11:00 AM EDT Office Visit [facility] OPTOMETRY [address] [place] [address] Raza, Suzie, OD [address] [place] [address] documented as of this encounter Visit Diagnoses Diagnosis Type 2 diabetes mellitus with hyperglycemia, without long-term current use of insulin ([facility]) Encounter for preventive health examination documented in this encounter Care Teams Sap Bi Architect Relationship Specialty Start Date End Date Carie Camargo MD [address] [place] [address] PCP - General Family Medicine 05/08/17 Leisa Ibarra [address] [place], [place] [id number] Dental Hogshead Salvage 11/10/24 documented as of this encounter
--- OUTSIDE RECORDS SUMMARY | 2024-12-28 12:26 | XMS_ITS | Encounter Summary ---
Author Organization [employer] Address [address] [place] [address] Care Team Providers Care Lab Systems Analyst Name Role Phone Carie Camargo MD Primary Care Provider + Leisa Ibarra Unavailable Reason for Visit * Reason Comments Dentures Patient presents tod ay for denture impressions Jacqueline WATERMAN Encounter Details Date Type Department Care Team (Late st Contact Info) Description 12/23/2024 10:30 AM EDT Office Visit [facility] ADULT DENTAL [address] [place], [place] [phone] Jatinder Ibarrapreignacia [address] [place], [place] [phone] Social History Tobacco Use Types Packs/Day Years Used Date Smoking Tobacco: Never Passive Smoke Exposure: Never Smokeless Tobacco: Never Alcohol Use Standard Drinks/Week Comments Never 0 (1 standard drink = 0.6 oz pur e alcohol) Depression Answer Date Recorded Patient Health Questionnaire-9 Score 0 08/05/2024 Patient Health Questionnaire-9 Score 0 08/05/2024 Last PHQ-9: Questionnaire Data Not on file 1 10/05/2023 Housing Stability Answer Date Recorded What is your housing situation today? I have ctadan batista 07/09/[address] you [...] Date Recorded Patient Health Questionnaire-2 Score 0 08/05/2024 Internet Access Answer Date Recorded Internet Access Q1 Yes 05/23/2024 Internet Access Q2 Not on file 05/23/2024 Sex and Gender Information Value Date Recorded Sex Assigned at Male 07/21/2022 10:16 AM EDT Legal Sex Male 10:16 AM EDT Gender Identity Male 07/21/2022 10:16 AM EDT Sexual Orientation Straight 07/21/2022 10 :16 AM EDT documented as of this encounter Progress Notes * Leisa Ibarra - 12/23/2024 10:30 AM EDT Dental procedures in this visit [id number] - DENTURE IMPRESSION (Completed) Service provider: Leisa Ibarra Billing provider: Leisa Ibarra [id number] - CASE PRESENTATION, DETAILED AND EXTENSIVE TREATMENT PLANNING (Completed) Service provider: Leisa Ibarra Billing provider: Leisa Ibarra Patient ID: Rajan Walker is a 69 y.o. male. Time Out: Timeout Date: 12/23/24, Timeout Time: 1023 (Impressions for dentures) Location: [facility] Tooth: Maxilla and Mandible Procedure: Dentures Verified the above with patient, assistant kitchen manager, and provider. Confirmed via patient's chart, intraorally and by radiographs. Bulb Assembler: Yes. Language: Qatari. Bulb Assembler's Name: Jacqueline Chief Complaint Patient presents with Dentures Patient presents today for denture impressions Jacqueline WATERMAN Medical Hx: Vitals: There were no vitals taken for this visit. Past Medical History: Diagnosis Date Benign prostatic hyperplasia without lower urinary tract symptoms Diabetes mellitus (CMS/HCC) Dry eyes Glaucoma suspect History of smoking HLD (hyperlipidemia) Hypertension Prostate cancer (CMS/HCC) Medications: Outpatient Encounter Medications as of 12/23/2024 Medication Sig Dispense Refill Ammonium Lactate (Valdez Tiffanietique Emu-Lac) 10 % cream use to both feet daily Aspirin Low Dose 81 MG EC tablet TAKE 1 TABLET BY MOUTH EVERY DAY 90 tablet 3 Blood Glucose Monitoring Suppl (Yamli) w/Device kit TEST BLOOD SUGAR TWICE A DAY 1 kit 0 Blood Pressure kit Check blood pressure daily clotrimazole-betamethasone (Lotrisone) cream APPLY TO AFFECTED AREA DIRECTED doxazosin (Cardura) 4 MG tablet TAKE 1 TABLET BY MOUTH EVERY DAY 90 tablet 2 esomeprazole (NexIUM) [address] capsule Take 40 mg by mouth Once per day. gabapentin (Neurontin) 300 MG capsule Take 1 capsule (300 mg) by mouth at bedtime. 90 capsule 0 glipiZIDE (Glucotrol) 10 MG tablet TAKE 1 TABLET BY MOUTH TWICE A DAY BEFORE BREAKFAST AND EVENING MEAL 180 tablet 3 glucose blood (Yamli) test strip USE TO TEST BLOOD SUGAR TWICE A DAY 100 strip 11 Jardiance 25 MG TAKE 1 TABLET BY MOUTH EVERY DAY IN THE MORNING 90 tablet 2 latanoprost (Xalatan) 0.005 % ophthalmic solution INSTILL 1 DROP INTO BOTH EYES AT BEDTIME 2.5 mL 5 lisinopril 5 MG tablet Take 5 mg by mouth. loratadine (Claritin) 10 MG tablet TAKE 1 TABLET BY MOUTH EVERY DAY IN THE MORNING 90 tablet 3 LORazepam (Ativan) 0.5 MG tablet Take 0.5 mg by mouth. metoprolol succinate XL (Toprol-XL) 25 MG 24 hr tablet TAKE 1 TABLET BY MOUTH EVERY DAY 90 tablet 3 mineral oil-hydrophilic petrolatum (Aquaphor) ointment apply topically over affected area twice daily Multiple Vitamin (Daily-Marvin Multivitamin) tablet TAKE 1 TABLET BY MOUTH EVERY DAY WITH FOOD 90 tablet 3 naproxen (Naprosyn) 500 MG tablet Take 1 tablet by mouth. 2 times every day with food Strands[employer]ass Monkey Delica Lancets 33G [facility] Test blood sugar twice a day 100 each 11 Ozempic, 2 MG/DOSE, 8 MG/3ML solution pen-injector INJECT 2 MG SUBCUTANEOUSLY EVERY WEEK IN THE ABDOMEN, THIGH, OR UPPER ARM pioglitazone (Actos) 30 MG tablet Take 30 mg by mouth Once per day. senna-docusate (Senokot S) 8.6-50 MG tablet Take 1 tablet by mouth Once per day. 30 tablet 11 simvastatin (Zocor) 40 MG tablet TAKE 1 TABLET BY MOUTH EVERY DAY IN THE EVENING 90 tablet 3 tamsulosin (Flomax) 0.4 MG 24 hr capsule TAKE 1 CAPSULE 30 minutes AFTER dinner daily, MAY INCREASETO TWICE DAILY if needed DURING radiation THERAPY zoster vaccine, live, (Zostavax) 85665 UNT/0.65ML injection inject 0.65 milliliter by subcutaneous route once No facility-administered encounter medications on file as of 12/23/2024. Consent Obtained: The risks, benefits, indications, potential complications, and alternatives were explained to the patient and informed consent was obtained with good understanding. Treatment Provided: Preliminary Impressions taken with Alginate of Maxilla and Mandible Case sent to lab to fabricate custom trays. Lab used: [facility] Lab Due Date: 01/02/25 Patient discharged alert, oriented, and in stable condition. NOTE- Preliminary Impressions taken with Alginate of Maxilla and Mandible poured in office. NV: Final impressions U/L complete dentures Supervisor Beam Department: Jacqueline Mathew Dentist: Dr. Leisa Ibarra, DMD documented in this encounter Plan of Treatment Upcoming Encounters Date Type Department Care Team (Late st Contact Info) Description 01/06/2025 10:45 AM EDT Office Visit [facility] CHC ADULT DENTAL [address] [place] [address] Leisa Ibarra [address] [place] [address] 02/03/2025 11:00 AM EDT Office Visit [facility] OPTOMETRY [address] [place] [address] Raza, Suzie, OD [address] [place] [address] Scheduled Orders Name Type Priority Associated Diagnoses Orde r Schedule DENTAL LAB DENTURES AND PARTIALS Dental Routine Ordered: 025 documented as of this encounter Procedures Procedure Name Priority Date/Time Associated Diagnosis Comments DENTURE IMPRESSION Routine 12/23/2024 10 :30 AM EDT CASE PRESENTATION, DETAILED AND EXTENSIVE TREATMENT PLANNING Routine 12/23/2024 10:30 AM EDT documented in this encounter Visit Diagnoses Not on filedocumented in this encounter Additional Health Concerns Assessment Noted Time PHQ-9 Depression Total Score: 0 08/05/20 10:44 AM EST documented as of this encounter Care Teams Lab Systems Analyst Relationship Specialty Start Date End Date Carie Camargo MD [address] [place] [address] PCP - General Family Medicine 05/08/17 Leisa Ibarra [address] [place] [address] Dental Embossing Tool Setter 11/10/24 documented as of this encounter
--- OUTSIDE RECORDS SUMMARY | 2024-12-28 12:26 | XMS_ITS | Encounter Summary ---
Author Organization [employer] [facility] Address [address] [place] [address] [address] [place] [address] Care Team Providers Care Electric Arc Furnace Operator Name Role Phone Carie Camargo MD Primary Care Provider + Leisa Ibarra Unavailable [phone] Encounter Details Date Type Department Care Team (Late st Contact Info) Description 08/13/2022 Abstract [facility] MEDICINE [address] [place] [address] Provider, MD Alexandrea Social History Tobacco Use Types Packs/Day Years Used Date Smoking Tobacco: Never Assessed Sex and Gender Information Value Date Recorded Sex Assigned at Male 07/21/2022 10:16 AM EDT Legal Sex Male 10:16 AM EDT Gender Identity Male 07/21/2022 10:16 AM EDT Sexual Orientation Straight 07/21/2022 10 :16 AM EDT documented as of this encounter Plan of Treatment Upcoming Encounters Date Type Department Care Team (Late st Contact Info) Description 01/06/2025 10:45 AM EDT Office Visit [facility] CHC ADULT DENTAL [address] [place] [address] Leisa Ibarra [address] [place] [address] 02/03/2025 11:00 AM EDT Office Visit [facility] OPTOMETRY [address] [place] [address] Raza, Suzie, OD [address] [place] [address] documented as of this encounter Visit Diagnoses Not on filedocumented in this encounter Care Teams Electric Arc Furnace Operator Relationship Specialty Start Date End Date Carie Camargo MD [address] [place] [address] PCP - General Family Medicine 05/08/17 Leisa Ibarra [address] [place] [address] Dental Parts Classifier 11/10/24 documented as of this encounter
--- OUTSIDE RECORDS SUMMARY | 2024-12-28 12:26 | XMS_ITS | Encounter Summary ---
Author Organization [email or web address] Address [address] [place] [address] Care Team Providers Care Assistant Track Coach Name Role Phone Carie Camargo MD Primary Care Provider + Leisa Ibarra Unavailable Reason for Visit * Reason Onset Date Comments Med Refill STATION EXAMINER Referral Letter 03/19/2023 The patient requested a letter, stating that he qualifies for STATION EXAMINER services. I called to ask what ADL's he needs assistance with, and reached his voicemail. I left a msg asking him to return my call at ext [phone]. I also reminded him that he has a PE appt on 03/31/23 at 9:15 am. STATION EXAMINER Referral 03/19/2023 I called the pt regarding his request for a letter, to be referred for STATION EXAMINER services. He stated that he needs assistance with getting dressed, housekeeping, and laundry. I informed him that once he is referred, he will get a call from the home care agency to schedule an evaluation. He verbalized understanding. Encounter Details Date Type Department Care Team (Late st Contact Info) Description 03/19/2023 Refill [facility] [address] [place] [address] Carie Camargo MD [address] [place] [address] Social History Tobacco Use Types Packs/Day Years Used Date Smoking Tobacco: Never Smokeless Tobacco: Never Alcohol Use Standard Drinks/Week Comments Never 0 (1 standard drink = 0.6 oz pur e alcohol) Sex and Gender Information Value Date Recorded Sex Assigned at Male 07/21/2022 10:16 AM EDT Legal Sex Male 10:16 AM EDT Gender Identity Male 07/21/2022 10:16 AM EDT Sexual Orientation Straight 07/21/2022 10 :16 AM EDT documented as of this encounter Miscellaneous Notes * Telephone Encounter - Kia Skinner MA - 03/31/2023 2:28 PM EDT I called the pt regarding his request for a letter, to be referred for STATION EXAMINER services. He stated thathe needs assistance with getting dressed, housekeeping, and laundry. I informed him that once he isreferred, he will get a call from the home care agency to schedule an evaluation. He verbalized understanding. * Telephone Encounter - Kia Skinner MA - 03/30/2023 2:58 PM EDT The patient requested a letter, stating that he qualifies for STATION EXAMINER services. I called to ask what ADL's he needs assistance with, and reached his voicemail. I left a msg asking him to return my call at ext [phone]. I also reminded him that he has a PE appt on 03/31/23 at 9:15 am. documented in this encounter Plan of Treatment Upcoming Encounters Date Type Department Care Team (Late st Contact Info) Description 01/06/2025 10:45 AM EDT Office Visit [facility] ADULT DENTAL [address] [place] [address] Jefferson Ibarraanpreet [address] [place] [address] 02/03/2025 11:00 AM EDT Office Visit [facility] OPTOMETRY [address] [place] [address] Raza, Suzie, OD [address] [place] [address] documented as of this encounter Visit Diagnoses Not on filedocumented in this encounter Care Teams Assistant Track Coach Relationship Specialty Start Date End Date Carie Camargo MD [address] [place] [address] PCP - General Family Medicine 05/08/17 Leisa Ibarra [address] [place] [address] Dental Horse Shoer 11/10/24 documented as of this encounter
--- OUTSIDE RECORDS SUMMARY | 2024-12-28 12:26 | XMS_ITS | Encounter Summary ---
Author Organization [employer] Address [address] [place] [address] Care Team Providers Care Copy Center Operator Name Role Phone Carie Camargo MD Primary Care Provider + Leisa Ibarra Unavailable [phone] Reason for Visit * Reason Comments Med Refill Encounter Details Date Type Department Care Team (Late st Contact Info) Description 12/24/2024 Refill [facility] OPTOMETRY [address] [place] [address] Raza, Suzie, OD [address] [place] [address] Social History Tobacco Use Types Packs/Day Years [...] Description 01/06/2025 10:45 AM EDT Office Visit [facility] CHC ADULT DENTAL [address] [place] [address] Leisa Ibarra [address] [place] [address] 02/03/2025 11:00 AM EDT Office Visit [facility] OPTOMETRY [address] [place] [address] Raza, Suzie, OD [address] [place] [address] documented as of this encounter Visit Diagnoses Not on filedocumented in this encounter Additional Health Concerns Assessment Noted Time PHQ-9 Depression Total Score: 0 08/05/20 24 10:44 AM EST documented as of this encounter Care Teams Copy Center Operator Relationship Specialty Start Date End Date Carie Camargo MD [address] [place] [address] PCP - General Family Medicine 05/08/17 Leisa Ibarra [address] [place] [address] Dental Dry Cleaner Helper 11/10/24 documented as of this encounter
--- OUTSIDE RECORDS SUMMARY | 2024-12-28 12:26 | XMS_ITS | Encounter Summary ---
Author Organization [employer] Address [address] [place] [address] Care Team Providers Care Direct Entry Midwife Name Role Phone Carie Camargo MD Primary Care Provider + Jatinder Ibarrashin Unavailable [phone] Reason for Visit * Reason Comments Med Refill Encounter Details Date Type Department Care Team (Late st Contact Info) Description 08/12/2023 Refill [facility] MEDICINE [address] [place], [place] [phone] Carie Camargo MD [address] [place], [place] [phone] Social History Tobacco Use Types Packs/Day Years [...] Description 01/06/2025 10:45 AM EDT Office Visit [facility] CHC ADULT DENTAL [address] [place], [place] [phone] Leisa Ibarra [address] [place] [address] 02/03/2025 11:00 AM EDT Office Visit [facility] OPTOMETRY [address] [place] [address] Raza, Suzie, OD [address] [place] [address] documented as of this encounter Visit Diagnoses Not on filedocumented in this encounter Care Teams Direct Entry Midwife Relationship Specialty Start Date End Date Carie Camargo MD [address] [place] [address] PCP - General Family Medicine 05/08/17 Leisa Ibarra [address] [place] [address] Dental Convict Guard 11/10/24 documented as of this encounter
--- OUTSIDE RECORDS SUMMARY | 2024-12-28 12:26 | XMS_ITS | Encounter Summary ---
Author Organization [employer] Address [address] [facility] [address]t [place] [address] Care Team Providers Care Black And White Printer Operator Name Role Phone Carie Camargo MD Primary Care Provider + Leisa Ibarra Unavailable [phone] Reason for Visit * Reason Comments Med Refill Encounter Details Date Type Department Care Team ([facility] Contact Info) Description 01/11/2023 Refill [facility] [address] [place], [place] [phone] Carie Camargo MD [address] [place] [address] [phone] Social History Tobacco Use Types Packs/Day Years [...] Orientation Straight 07/21/2022 10 :16 AM EDT COVID-19 Exposure Response Date Recorded In the last 10 days, have yo u been in contact with someone who was confirmed or suspected to have Coronavirus/COVID-19? No / Unsure 12/25/2022 8:58 AM EDT documented as of this encounter Plan of Treatment Upcoming Encounters Date Type Department Care Team ([facility] Contact Info) Description 01/06/2025 10:45 AM EDT Office Visit [facility] ADULT DENTAL [address] [place], [place] [phone] Leisa Ibarra [address] [place] [address] 02/03/2025 11:00 AM EDT Office Visit [facility] OPTOMETRY [address] [place] [address] Raza, Suzie, OD [address] [place] [address] documented as of this encounter Visit Diagnoses Not on filedocumented in this encounter Care Teams Black And White Printer Operator Relationship Specialty Start Date End Date Carie Camargo MD [address] [place] [address] PCP - General Family Medicine 05/08/17 Leisa Ibarra [address] [place] [address] Dental Ob Gyn Physician Assistant 11/10/24 documented as of this encounter
--- OUTSIDE RECORDS SUMMARY | 2024-12-28 12:26 | XMS_ITS | Encounter Summary ---
Author Organization [employer] Address [address] 7[address] [place] [address] Care Team Providers Care Lead Technical Writer Name Role Phone Carie Camargo MD Primary Care Provider + Jatinder Ibarrashin Unavailable Reason for Visit * Reason Comments Med Refill Encounter Details Date Type Department Care Team (Late st Contact Info) Description 09/27/2023 Refill [facility] MEDICINE [address] [place], [place] [phone] Carie Camargo MD [address] [place], [place] [phone] Encounter for preventive health examination Social History [...] Description 01/06/2025 10:45 AM EDT Office Visit [facility] CHC ADULT DENTAL [address] [place], [place] [phone] Leisa Ibarra [address] [place] [address] 02/03/2025 11:00 AM EDT Office Visit [facility] OPTOMETRY [address] [place] [address] Raza, Suzie, OD [address] [place] [address] documented as of this encounter Visit Diagnoses Diagnosis Encounter for preventive health examination documented in this encounter Care Teams Lead Technical Writer Relationship Specialty Start Date End Date Carie Camargo MD [address] [place] [address] PCP - General Family Medicine 05/08/17 Leisa Ibarra [address] [place], [place] [phone] Dental Ironworker Apprentice 11/10/24 documented as of this encounter
--- OUTSIDE RECORDS SUMMARY | 2024-12-28 12:26 | XMS_ITS | Encounter Summary ---
Author Organization [employer] Address [address] [address] [address] 7[address] [place] [address] Care Team Providers Care Sheet Metal Lay Out Worker Name Role Phone Carie Camargo MD Primary Care Provider + Stacey Leisa Unavailable [phone] Reason for Visit * Reason Comments Med Refill Encounter Details Date Type Department Care Team (Late st Contact Info) Description 12/23/2024 Refill [facility] MEDICINE [address] [place], [place] [phone] Carie Camargo MD 230 [place], [place] [phone] Social History Tobacco Use Types Packs/Day Years [...] enough money to get more: Never True 10/ Transportation Answer Date Recorded In the past [...] Description 01/06/2025 10:45 AM EDT Office Visit [facility] CHC ADULT DENTAL [address] [place] [address] Leisa Ibarra [address] [place] [address] 02/03/2025 11:00 AM EDT Office Visit [facility] OPTOMETRY [address] [place] [address] Raza, Suzie, OD [address] [place] [address] documented as of this encounter Visit Diagnoses Not on filedocumented in this encounter Additional Health Concerns Assessment Noted Time PHQ-9 Depression Total Score: 0 08/05/20 24 10:44 AM EST documented as of this encounter Care Teams Sheet Metal Lay Out Worker Relationship Specialty Start Date End Date Carie Camargo MD [address] [place] [address] PCP - General Family Medicine 05/08/17 Leisa Ibarra [address] [place] [address] Dental Business Services Specialist Sales 11/10/24 documented as of this encounter
--- OUTSIDE RECORDS SUMMARY | 2024-12-28 12:26 | XMS_ITS | Encounter Summary ---
Author Organization [employer] Address [address] [facility] 7[address] [place] [address] Care Team Providers Care Acetylene Plant Operator Name Role Phone Carie Camargo MD Primary Care Provider + Leisa Ibarra Unavailable [phone] Encounter Details Date Type Department Care Team (Late st Contact Info) Description 09/25/2022 Orders Only [facility] MEDICINE [address] [place] [address] Carie Camargo MD [address] [place] [address] Gastroesophageal reflux disease, unspecified whether esophagitis present Social History Tobacco Use Types Packs/Day Years [...] Description 01/06/2025 10:45 AM EDT Office Visit [facility] CHC ADULT DENTAL [address] [place], [place] [phone] Leisa Ibarra [address] [place] [address] 02/03/2025 11:00 AM EDT Office Visit [facility] OPTOMETRY [address] [place] [address] RazaSuzie, OD [address] [place] [address] documented as of this encounter Procedures Procedure Name Priority Date/Time Associated Diagnosis Comments T-SPOT(R).TB Routine 04/30/2023 9:24 AM EDT Gastroesophageal reflux disease, unspecified whether esophagitis present MEASLES AB (IGG), IMMUNE STATUS Routine 04/30/2023 9:24 AM EDT Gastroesophageal reflux disease, unspecified whether esophagitis present RUBELLA AB (IGG), IMMUNE STATUS Routine 04/30/2023 9:24 AM EDT Gastroesophageal reflux disease, unspecified whether esophagitis present MUMPS ANTIBODY IGG Routine 04/30/2023 9: 24 AM EDT Gastroesophageal reflux disease, unspecified whether esophagitis present documented in this encounter Results * Mumps Virus Antibody (IgG), Immune Status (04/30/2023 9:24 AM EDT) Mumps Virus IgG Antibody 42.70 AU/mL [facility] Comment:AU/mL Interpretation ------- <9.00 Not consistent with immunity9.00-10.99 Equivocal>10.99 Consistent with immunityThe presence of mumps IgG antibody suggests immunizationor past or current infection with mumps virus.THIS TEST WAS PERFORMED AT:[facility] [address] [id number] ORTIZ MD 04/30/2023 9:24 AM EDT 04/30/2023 11:32 AM EDT us Carie Camargo MD LAB BLOOD ORDERABLES Fin al Result [facility] [address] [place] [address] [phone] * Measles Antibody (IgG), Immune Status (04/30/2023 9:24 AM EDT) Rubeola IgG (Measles) >300.00 AU/mL [facility] Comment:AU/mL Interpretation ----- <13.50 Not consistent with .50-16.49 Equivocal>16.49 Consistent with immunityThe presence of measles IgG suggests immunization orpast or current infection with measles virus.For additional information, please refer tohttp://education.[employer]/faq/QKL987(This link is being provided for informational/educational purposes only.)THIS TEST WAS PERFORMED AT:[facility] [place] [id number] ORTIZ MD 04/30/2023 9:24 AM EDT 04/30/2023 11:32 AM EDT Carie Camargo MD LAB BLOOD ORDERABLES Fin al Result Performing Organization Address [facility] de Phone Number [facility] [address] [place] [phone] * Rubella Antibody (IgG), Immune Status (04/30/2023 9:24 AM EDT) Rubella IgG Antibody >33.00 Index [facility] Comment:Index Interpretation ----- <0.90 Not consistent with immunity 0.90-0.99 Equivocal > or = 1.00 Consistent with immunityThe presence of rubella IgG antibody suggestsimmunization or past or current infection withrubella virus.THIS TEST WAS PERFORMED AT:[facility] [place] [id number] ORTIZ MD 04/30/2023 9:24 AM EDT 04/30/2023 11:32 AM EDT Carie Camargo MD LAB BLOOD ORDERABLES Fin al Result Performing Organization Address [facility]/ZIP Co de Phone Number [facility] [address] [place] [address] [phone] * T-SPOT??.TB (04/30/2023 9:24 AM EDT) T Spot TB Negative Negative [facility] Comment:A negative test resu lt does not exclude the possibilityof exposure to or infection with Mycobacteriumtuberculosis (M. tuberculosis). Patients with recentexposure to TB infected individuals exhibiting anegative T-SPOT.TB result should be considered forretesting within 6 weeks or if other relevant clinicalsymptoms indicate. Results from T-SPOT.TB testing mustbe used in conjunction with each individual'sepidemiological history, current medical status,and results of other diagnostic evaluations.The T-SPOT.TB test is qualitative and results arereported as positive, borderline, or negative, giventhat the test controls perform as expected. In linewith the Centers for Disease Control and Prevention's2010 recommendation to report quantitative measurementsalongside the qualitative result, the laboratoryprovides spot counts for informational purposes only.The T-SPOT.TB test should not be interpreted as aquantitative test. TS PANEL A 1 [facility] TS PANEL B 2 [facility] Negative Control Passed [facility] Positive Control Passed [facility] Comment:For additional infor rachelle, please refer tohttp://education.[employer]/faq/BWS604(This link is being provided for informational/educational purposes only.)THIS TEST WAS PERFORMED AT:[id number] [place] [address]OJCMSVCJORGE MCCONNELL MD,PHD 04/30/2023 9:24 AM EDT 04/30/2023 11:32 AM EDT Carie Camargo MD LAB BLOOD ORDERABLES Fin al Result [facility] [address] [place] [phone] [phone] documented in this encounter Visit Diagnoses Diagnosis Gastroesophageal reflux disease, unspecified whether esophagitis present documented in this encounter Care Teams Acetylene Plant Operator Relationship Specialty Start Date End Date Carie Camargo MD [address] [place] [address] PCP - General Family Medicine 05/08/17 Leisa Ibarra [address] [place] [address] Dental Bond Analyst 11/10/24 documented as of this encounter
--- OUTSIDE RECORDS SUMMARY | 2024-12-28 12:26 | XMS_ITS | Encounter Summary ---
Author Organization [employer] [facility] Address [address] [place] [address] [address] [place] [address] Care Team Providers Care Back Shoe Cutter Name Role Phone Carie Cmaargo MD Primary Care Provider + Leisa Ibarra Unavailable [phone] Encounter Details Date Type Department Care Team (Late st Contact Info) Description 08/13/2022 Abstract [facility] MEDICINE [address] [place] [address] Provider, MD Alexandrea Social History Tobacco Use [...] Description 01/06/2025 10:45 AM EDT Office Visit [facility] CHC ADULT DENTAL [address] [place] [address] Leisa Ibarra [address] [place] [address] 02/03/2025 11:00 AM EDT Office Visit [facility] OPTOMETRY [address] [place] [address] Raza, Suzie, OD [address] [place] [address] documented as of this encounter Visit Diagnoses Not on filedocumented in this encounter Care Teams Back Shoe Cutter Relationship Specialty Start Date End Date Carie Camargo MD [address] [place] [address] PCP - General Family Medicine 05/08/17 Leisa Ibarra [address] [place] [address] Dental Linseed Oil Temperer 11/10/24 documented as of this encounter
--- OUTSIDE RECORDS SUMMARY | 2024-12-28 12:26 | XMS_ITS | Clinical Summary ---
Author Organization [employer] Address [address] [facility] [address] [place] [address] Care Team Providers Care Engraver Letter Name Role Phone Carie Camargo MD Primary Care Provider + Leisa Ibarra Unavailable [phone] Allergies No known active allergies Medications Ammonium Lactate (Valdez Mystique Emu-Lac) 10 % cream use to both feet daily 019 Active mineral oil-hydrophilic petrolatum (Aquaphor) ointment apply topically over affected area twice daily 017 Active naproxen (Naprosyn) 500 MG tablet Take 1 tablet by mouth. 2 times every day with food 021 Active zoster vaccine, live, (Zostavax) 76804 UNT/0.65ML injection inject 0.65 milliliter by subcutaneous route once 019 Active Blood Pressure kit Check blood pressure daily Active OneTouch Delica Lancets 33G misc Test blood sugar twice a day 100 each 11 023 Active Blood Glucose Monitoring Suppl (OneTouch Verio) w/Device kit TEST BLOOD SUGAR TWICE A DAY 1 kit 023 Active simvastatin (Zocor) 40 MG tablet TAKE 1 TABLET BY MOUTH EVERY DAY IN THE EVENING 90 tablet 3 023 Active clotrimazole-be tamethasone (Lotrisone) cream APPLY TO AFFECTED AREA DIRECTED 023 Active glucose blood (OneTouch Verio) test stripIndication s:Type 2 diabetes mellitus with hyperglycemia, without long-term current use of insulin ([facility]) USE TO TEST BLOOD SUGAR TWICE A DAY 100 strip 11 Active Aspirin Low Dose 81 MG EC tablet TAKE 1 TABLET BY MOUTH EVERY DAY 90 tablet 3 Active metoprolol succinate XL (Toprol-XL) 25 MG 24 hr tabletIndicatio ns:Benign hypertension TAKE 1 TABLET BY MOUTH EVERY DAY 90 tablet 3 Active glipiZIDE (Glucotrol) 10 MG tabletIndicatio ns:Type 2 diabetes mellitus with hyperglycemia, without long-term current use of insulin (CMS/HCC) TAKE 1 TABLET BY MOUTH TWICE A DAY BEFORE BREAKFAST AND EVENING MEAL 180 tablet 3 Active lisinopril 5 MG tablet Take 5 mg by mouth. Active LORazepam (Ativan) 0.5 MG tablet Take 0.5 mg by mouth. Active Ozempic, 2 MG/DOSE, 8 MG/3ML solution pen-injector INJECT 2 MG SUBCUTANEOUSLY EVERY WEEK IN THE ABDOMEN, THIGH, OR UPPER ARM Active esomeprazole (NexIUM) [address] capsule Take 40 mg by mouth Once per day. Active pioglitazone (Actos) 30 MG tablet Take 30 mg by mouth Once per day. Active tamsulosin (Flomax) 0.4 MG 24 hr capsule TAKE 1 CAPSULE 30 minutes AFTER dinner daily, MAY INCREASE TO TWICE DAILY if needed DURING radiation THERAPY Active Jardiance 25 MGIndications:T ype 2 diabetes mellitus with hyperglycemia, without long-term current use of insulin (CMS/HCC) TAKE 1 TABLET BY MOUTH EVERY DAY IN THE MORNING 90 tablet 2 Active doxazosin (Cardura) 4 MG tabletIndicatio ns:Benign hypertension TAKE 1 TABLET BY MOUTH EVERY DAY 90 tablet 2 Active loratadine (Claritin) 10 MG tabletIndicatio ns:Encounter for preventive health examination TAKE 1 TABLET BY MOUTH EVERY DAY IN THE MORNING 90 tablet 3 Active senna-docusate (Senokot S) 8.6-50 MG tablet Take 1 tablet by mouth Once per day. 30 tablet 11 025 2025 Active gabapentin (Neurontin) 300 MG capsule Take 1 capsule (300 mg) by mouth at bedtime. 90 capsule 025 Active Multiple Vitamin (Daily-Marvin Multivitamin) tablet TAKE 1 TABLET BY MOUTH EVERY DAY WITH FOOD 90 tablet 3 025 Active latanoprost (Xalatan) 0.005 % ophthalmic solution INSTILL 1 DROP INTO BOTH EYES AT BEDTIME 2.5 mL 5 025 Active Multiple Vitamin (Daily-Marvin Multivitamin) tablet TAKE 1 TABLET BY MOUTH EVERY DAY WITH FOOD 90 tablet 3 024 2024 Discontinued tadalafil (Cialis) 20 MG tablet USE DIRECTED FOR SEXUAL ACTIVITY 024 2024 Discontinued(I neffective) ergocalciferol (Vitamin D2) 1.25 MG (50714 UT) capsule Take 1 capsule (1.25 mg) by mouth 1 (one) time per week. 12 capsule 1 024 2024 latanoprost (Xalatan) 0.005 % ophthalmic solution INSTILL 1 DROP INTO BOTH EYES AT BEDTIME 2.5 mL 5 024 2024 Discontinued gabapentin (Neurontin) 300 MG capsule Take 300 mg by mouth. 024 2024 Discontinued(R eorder (will not trigger notification to Pharmacy)) Senna-Time 8.6 MG tablet 024 2024 Discontinued(I neffective) Active Problems Problem Noted Date Diagnosed Date Abdominal distension 12/07/2024 Assessment & Plan (12/07/2024 12:28 PM EDT): Probably related to constipation, associated to Ozempic use. Advised regarding high fiber diet and increase water intake. Use Senokot daily and Flaxseed powder PRN. FU with Endocrinology to adjust Ozempic if needed. Warning signs regarding intestinal obstruction discussed with patient. Post-void dribbling 12/07/2024 Incontinence of feces with fecal urgency Assessment & Plan (12/07/2024 12:37 PM EDT): Probably s/p radical prostatectomy. Educated him regarding Kegel exercises and FU with Urology. Will consider pull ups in the future. Vitamin D deficiency 06/02/2024 Assessment & Plan (09/22/2024 1:05 PM EST): Start Vit D supplementation. Advised to increase outdoor exercise Prostate cancer 02/12/2024 Overview (02/12/2024): Sp TRUSP 12/15/23 : Al 4+3 Assessment & Plan (12/07/2024 10:51 AM EDT): Prostrate cancer followed by PVU on 07/2024. Continue Camcevi injection every 6 months at office. Assessment & Plan (03/13/2024 5:12 PM EDT): Recently dx, no mets. Awaiting to start XRT, received one dose of Leuprolide this week, tolerates fairly well FU with Urology. Cholecystitis, chronic 10/08/2023 Assessment & Plan (10/08/2023 1:50 PM EST): Counseled regarding low fat meals Will refer to GI for further evaluation of abd pain Pain of upper abdomen 08/06/2023 Assessment & Plan (08/07/2023 9:48 AM EST): Most likely diverticulitis/?constipation Counseled regarding soft diet and increase PO hydration Avoid sweetened drinks, sodas Order abd ultrasounds, monitor fever Use tylenol, Bentil PRN If Sx do not improve or get worse, or he develops fever, he should go to ED or WIC Counseled to avoid narcotic and any medication not prescribed to him. She's not driving today. Arthritis of both hands 05/05/2023 Assessment & Plan (12/07/2024 12:36 PM EDT): Refer to OT. Dry eyes 05/01/2023 Encounter for preventive health examination 03/21 Assessment & Plan (03/31/2023 10:34 AM EDT): Discussed with patient re increase fresh fruit and vegetable intake. Counseled re moderate exercise as tolerated, up to 20min/d Patient feels safe at home. Eye exam up to date, next one due 06/2023. Pt is to fu regarding glaucoma suspect CRC screen up to date, next one due 2027 Lipids/FBS TBO Vaccinations PCV20 and shingrix today at the pharmacy, order IZ titers and FU at next appointment Tdap due 05/2023 Dental visit Pt has complete dentures which he doesn't wear, recommended to FU with dentist on the fourth floor Skin lesion of foot 03/31/2023 Assessment & Plan (03/31/2023 10:35 AM EDT): splinter was kept in place pt to reconsult PRN woresning of lesion daily foot check reommended Arthritis of hand 08/21/2022 Assessment & Plan (03/31/2023 10:36 AM EDT): Use Tylenol PRN encouraged to wear protective gloves for gardening and other activities he enjoys Ingrowing toenail 08/21/2022 Injury of globe of eye 08/21/2022 Primary osteoarthritis of right shoulder 022 Low vision, both eyes 08/21/2022 Pain in testicle 08/21/2022 Assessment & Plan (10/29/2022 10:10 PM EST): Uncontrolled. D/w patient re rx options. He wanted to start on Trulicity weekly to facilitate compliance. Continue glipizide to 10mg bid Counseled re more frequent low calorie/carb meals. Check fgstk 2x daily Encouraged physical activity as tolerated. FU in 2 months. Weight loss 08/21/2022 Allergic conjunctivitis 12/14/2018 Meralgia paresthetica 09/06/2018 Right leg pain 09/06/2018 Anxiety 12/11/2017 Erectile dysfunction associa bryan with type 2 diabetes mellitus 12/11/2017 Assessment & Plan (12/07/2024 12:35 PM EDT): Patient not taking any medication due to decreased libido s/p Lupron therapy rx. Neck pain 09/09/2017 Shoulder pain 09/09/2017 Microscopic hematuria 10/05/2013 Lipoma of right upper extremity 06/06/2013 Degenerative joint disease of hand 06/22/2012 Erectile dysfunction 06/22/2012 Assessment & Plan (03/31/2023 10:38 AM EDT): related to uncontrolled DM, stressed importance of DM control viagra 50 mg, cautioned with side effects facial flushing, dizziness Gastroesophageal reflux disease 06/22/2012 Osteoarthritis of knee 06/22/2012 PVCs (premature ventricular contractions) 2011 Benign hypertension 05/06/2012 Assessment & Plan (03/13/2024 5:07 PM EDT): Controlled. Compliant w/meds Continue lisinopril + metoprolol same dose Counseled re low salt diet/increase moderate physical activity. Check home BP BIW and prn CP/STRONG/OSPINA Non smoking patient. Order labs and fu in Assessment & Plan (03/31/2023 10:37 AM EDT): Controlled. Continue low dose lisinopril and metoprolol order labs Counseled re low salt diet/increase moderate physical activity. Check home BP BIW and prn CP/STRONG/OSPINA Non smoking patient. Benign prostatic hyperplasia 03/05/2012 Cataract 03/05/2012 Diabetes mellitus, type 2 03/05/2012 Assessment & Plan (12/07/2024 1:23 PM EDT): Better controlled, A1c not at goal yet. FU with Endocrinology for DM control now that he is more compliant with her follow-ups, he has appointment next week. Continue on Ozempic 2 mg, Jardiance, Glipizide and Actos. Assessment & Plan (09/22/2024 1:05 PM EST): Better controlled, A1c not at goal. Increase Ozempic to 1mg then 2mg gradually if tolerated. FU with endocrinology, referred again. Continue Jardiance, glipizide an actos, may taper down to off glipizide if better controlled on GLP1 agonist, FU in 3mo Agreed to Influenza IZ Assessment & Plan (08/05/2024 11:12 AM EST): Fairly controlled. Continue Ozempic 2 mg per week and follow up with Retail Marketing Specialist. Continue Glipizide + Jardiance. Follow up with me in 3-4 months. Advised to get Covid vaccination at clinic. Assessment & Plan (03/13/2024 5:14 PM EDT): Uncontrolled, hasn't been able to use GLP! RA consistently due to shortage. Continue Ozempic 0.5mg and fu in 4w\ Continue glipizide, jardiance Advsied to reduce calorie intake and meal portions Assessment & Plan (10/08/2023 1:50 PM EST): Uncontrolled, non compliant w/ Trulicity Counseled regarding importance of medication compliance Will send prescription for Trulicity x 1 m to our pharmacy due to back order at [facility], he will cont prescriptions at [facility] next month Assessment & Plan (08/06/2023 10:48 AM EST): Improving, A1c not at goal Increase Trulicity to 1.5 mg and fu with me 2 month Continue Jardiance and Glipizide same dose Counseled re more frequent low calorie/carb meals. Encouraged physical activity as tolerated. Assessment & Plan (03/31/2023 10:38 AM EDT): Uncontrolled. Add Jardiance 10mg and fu with me in 1 month will adjust after we review labs continue trulicity and glipizide same dose stressed importance of low calorie and low carb diet Counseled re more frequent low calorie/carb meals. Encouraged physical activity as tolerated. ophthalmology eval up to date no DM neuropathy pt wants to be referred to endocrinology the [facility] Pure hypercholesterolemia 03/05/2012 Assessment & Plan (09/22/2024 1:06 PM EST): Advised to take Simvastatin every night and repeat lipids in 6mo. Recommended moderate amount of exercise and increase consumption of fruit, vegetables, fish and high fiber foods. Should decrease consumption of highly saturated fats or trans fats. Encounters Date Type Department Care Team Description 12/24/2024 Refill [facility] [address] [place] [address] Suzie Person OD 12/23/2024 10:30 AM EDT Office Visit [facility] ADULT DENT[facility] [address] [place] [address] Jatinder Ibarrashin 12/23/2024 Refill [facility] [address] [place] [address] Carie Camargo MD 12/07/2024 10:15 AM EDT Office Visit [facility] [address] [place] [address] Carie Camargo MD Type 2 diabetes mellitus with hyperglycemia, without long-term current use of insulin (CMS/HCC) (Primary Dx); Abdominal distension; Prostate cancer (CMS/HCC); Erectile dysfunction associated with type 2 diabetes mellitus (CMS/HCC) (CMS/HCC); Arthritis of both hands; Incontinence of feces with fecal urgency; Post-void dribbling 12/07/2024 Travel 11/29/2024 Patient Outreach [facility] [address] [place] [phone] Carie Camargo MD Pre-visit Planning ((Unable to reach for PVP screening, LVM)) 11/10/2024 2:30 PM EST Office Visit [facility]ULT [facility] [address] [place] [address] Jatinder Ibarrashin 11/08/2024 Refill [facility] [address] [place] [address] Carie Camargo MD Benign hypertension; Encounter for preventive health examination 10/19/2024 Refill [facility] [address] [place] [phone] Carie Camargo MD Type 2 diabetes mellitus with hyperglycemia, without long-term current use of insulin (CMS/HCC) from Last 3 Months Immunizations Name Administration Dates Next Due Influenza High-dose Quadriva lent Preservative Free 09/16/2023,07/28/2022 Influenza Injectable Quadriv alant Preservative Free IIV4 MDCK 07/30/2021 Influenza injectable quadriv alent preservative free 06/17/2020,06/17/2018,07/07/2017,09/05 Influenza, High Dose Seasona l, Preservative Free 06/02/2024,07/04/2019 Influenza, IIV3, injectable 07/31/2010 Influenza, Split (incl. dung fied surface antigen) 06/06/2013,06/22/2012 Moderna Covid-19 Vaccine 12+ 03/26/2021,02/27/20 21 Pneumococcal Conjugate PCV 20 11/04/2023 Pneumococcal Polysaccharide PPSV23 10/05/2013 TD (adult), 2 Lf tetanus tox oid, preservative free, adsorbed 03/10/2002 Tdap 06/06/2013 Zoster, Recombinant 11/04/2023,09/16/2023 Social History Tobacco Use Types Packs/Day Years Used Date Smoking Tobacco: Never Passive Smoke Exposure: Never Smokeless Tobacco: Never Tobacco Cessation:Counseling Given: Not Answered Alcohol Use Standard Drinks/Week Comments Never 0 [...] Orientation Straight 07/21/2022 10 :16 AM EDT Last Filed Vital Signs Vital Sign Reading Time Taken Comments Blood Pressure 132/79 12/07/2024 10:11 AM EDT Pulse 87 12/07/2024 10:11 AM EDT Temperature 35.6 ??C (96.1 ??F) 12/07/2024 10:11 AM E DT Respiratory Rate 20 08/05/2024 10:43 AM EST Oxygen Saturation 96% 12/07/2024 10:11 AM EDT Inhaled Oxygen Concentration - - Weight 70.9 kg (156 lb 4 oz) 12/07/2024 10:11 AM EDT Height 167.6 cm (5' 6 ) 12/07/2024 10:11 AM EDT Body Mass Index 25.22 12/07/2024 10:11 AM EDT Plan of Treatment Upcoming Encounters Date Type Department Care Team (Late st Contact Info) Description 01/06/2025 10:45 AM EDT Office Visit [facility] [address] [place] [address] Jatinder Ibarrapreet [address] [place] [address] 02/03/2025 11:00 AM EDT Office Visit [facility] [address] [place] [address] Raza, Suzie, OD [address] [place] [address] Health Maintenance Due Date Last Done Comments CT Colonography 1953 Dental Prophylaxis 1953 FIT DNA/Cologuard 1953 FIT 1953 FOBT 1953 Sigmoidoscopy 1953 Alcohol/Substance Use Screening 1965 Dental X-Ray: Bitewings 02/10/2018 02/09/2017 DTaP/Tdap/Td Vaccines (2 - Td or Tdap) 06/06/2023 06/06/2013, 03/10/2002 Diabetes: Urine Protein Screening 07/28/2023 07/28/2022, 06/13/2020 COVID-19 Vaccine ( season) 2024 01/24/2022, 03/26/2021, 02/26/2021 Diabetes: Hemoglobin A1C 03/09/2025 025, 06/02/2024, 03/11/2024, Additional history exists Diabetes: Foot Exam 03/11/2025 03/11/2024, 03/11/2024, 03/11/2024, Additional history exists SDOH Screening 03/28/2025 03/28/2024 Dental Oral Exam 05/11/2025 11/10/2024, 02/09/2017 Lipid Panel 05/28/2025 05/28/2024, 04/21, 07/28/2022, Additional history exists Depression Screening 08/05/2025 08/05/2024, 08/05/20 24 Tobacco Screening 12/23/2025 12/23/2024 Eye Exam 08/05/2026 08/05/2024, 07/22, 08/05/2024, Additional history exists Dental X-Ray: Full Mouth 11/11/2027 11/10/2024, 01/20 RSV Patients and Patients Aged 60 years or older (1 - 1-dose 75+ series) 2028 Colonoscopy 08/30/2034 08/30/2024, 04/27/2018 Colorectal Cancer Screening 08/30/2034 Hepatitis C Screening Completed 04/30/2023 Pneumococcal Vaccine: 50+ Years Completed 11/04/2023, 10/05/2013 Zoster Vaccines Completed 11/04/2023, 09/16/2023 Influenza Vaccine Completed 06/02/2024, , 07/28/2022, Additional history exists HIB Vaccines Aged Out No longer eligi ble based on patient's age to complete this topic HPV Vaccines Aged Out No longer eligi ble based on patient's age to complete this topic Hepatitis A Vaccines Aged Out No long er eligible based on patient's age to complete this topic Hepatitis B Vaccines Aged Out No long er eligible based on patient's age to complete this topic IPV Vaccines Aged Out No longer eligi ble based on patient's age to complete this topic Meningococcal Vaccine Aged Out No destin juan carlos eligible based on patient's age to complete this topic RSV under 20 months Aged Out No longe r eligible based on patient's age to complete this topic Rotavirus Vaccines Aged Out No longer eligible based on patient's age to complete this topic Procedures Procedure Name Priority Date/Time Associated Diagnosis Comments CASE PRESENTATION, DETAILED AND EXTENSIVE TREATMENT PLANNING Routine 12/23/2024 10:30 AM EDT DENTURE IMPRESSION Routine 12/23/2024 10 :30 AM EDT POCT GLYCATED HEMOGLOBIN, TOTAL Routine 12/07/2024 10:14 AM EDT Type 2 diabetes mellitus with hyperglycemia, without long-term current use of insulin ([facility]) POCT GLUCOSE Routine 12/07/2024 10:12 AM EDT Type 2 diabetes mellitus with hyperglycemia, without long-term current use of insulin ([facility]) PERIODIC ORAL EVALUATION - ESTABLISHED PATIENT Routine 11/10/2024 2:30 PM EST PANORAMIC RADIOGRAPHIC IMAGE Routine 11/10/2024 2:30 PM EST HM COLONOSCOPY Routine 08/30/2024 LIPID PANEL WITH REFLEX TO DIRECT LDL Routine 05/28/2024 10:05 AM EDT Benign hypertension HEPATITIS PANEL, GENERAL Routine 04/30/2023 9:24 AM EDT Encounter for preventive health examination ALBUMIN, RANDOM URINE W/CREATININE Routine 07/28/2022 10:27 AM EST INTRAORAL - COMPLETE SERIES OF RADIOGRAPHIC IMAGES Routine 02/09/2017 12:00 AM EDT from Last 3 Months or Most Recently Relevant to Health Maintenance Results * (ABNORMAL) POCT HGB A1C (12/07/2024 10:14 AM EDT) Hemoglobin A1C 8.1(A) 4.0 - 6.0 % QC Media Lot # [id number] Lot# Expiration Date [id number] Blood 12/07/2024 10:1 4 AM EDT Carie Camargo MD POINT OF CARE TEST ENTER /EDIT ORDERABLES Final Result * POCT Glucose (12/07/2024 10:12 AM EDT) Glucose Blood, POC 145 60 - 200 mg/dL QC Media Lot # [id number] Lot# Expiration Date [id number] Blood Capillary blood specimen / Unknown 12/07/2024 10:12 AM EDT Carie Camargo MD POINT OF CARE TEST ENTER /EDIT ORDERABLES Final Result * Hm Colonoscopy (08/30/2024) Colonoscopy Normal Normal [facility] Carie Camargo MD HEALTH MAINTENANCE Final Result [facility] [address] [place] [phone] * (ABNORMAL) Lipid Panel with Reflex to Direct LDL (05/28/2024 10:05 AM EDT) Triglycerides 96 <150 mg/dL [facility] Comment:Desirable Triglyceri de: less than 150 mg/dLBorderline High Triglyceride 150-199 mg/dLHigh Triglyceride: 200-499 mg/dLVery High Triglyceride: greater than or equal to 5OO mg/dL Cholesterol 182 <200 mg/dL [facility] Comment:Desirable Cholestero l: less than 200 mg/dLBorderline High Cholesterol: 200-239 mg/dLHigh Cholesterol: greater than 239 mg/dL LDL Cholesterol Calculated 111(H) <100 mg/dL [facility] Comment:Desirable LDL: less than 100 mg/dLNear Optimal/Above Optimal LDL: 110- 129 mg/dLBorderline High LDL: 130-159 mg/dLHigh LDL: 160-189 mg/dLVery High LDL: greater than or equal to 190 mg/dL HDL Cholesterol 52 >40 mg/dL [facility] Comment:Desirable HDL: great er than 40 mg/dL Note: This HDL assay may give artificially low results in patients with liver disease. Blood 05/28/2024 10:0 5 AM EDT 05/28/2024 10:05 AM EDT Carie Camargo MD LAB BLOOD ORDERABLES Fin al Result Performing Organization Address [facility] de Phone Number [facility] [address] [place] [address] [phone] * Hepatitis Panel, General (04/30/2023 9:24 AM EDT) Hepatitis A IgM Nonreactive Nonreactive [facility] Comment:IgM antibodies to STRONG V not detected; does not exclude earlyacute or recovered HAV infection. ~Hepatitis B Surface Antibody NONREACTIVE Nonreactive [facility] Comment:Nonreactive: < 8.00 mIU/mL Hepatitis B Core Antibody Nonreactive Nonreactive [facility] Hepatitis C Antibody Nonreactive Nonreactive [facility] Comment:Antibodies to HCV no t detected; does not exclude early acuteHCV infection. Hepatitis B Surface Ag Negative Negative [facility] 04/30/2023 9:24 AM EDT 04/30/2023 11:32 AM EDT Carie Camargo MD LAB BLOOD ORDERABLES Fin al Result Performing Organization Address [facility] de Phone Number [facility] [address] [place] [phone] [phone] * ALBUMIN, RANDOM URINE W/CREATININE (07/28/2022 10:27 AM EST) Microalbumin Urine 0.5 See Note: mg/dL [facility] Comment: Reference Range: ?? Reference Range Not established Microalb/Creat Ratio 12 <30 mcg/mg creat [facility] Comment: ?? The ADA defines abnormalities in albumin excretion as follows: ?? Albuminuria Category ?Result (mcg/mg creatinine) ?? Normal to Mildly increased ?? <30 Moderately increased ? 30-299 ?? Severely increased ? > OR = 300 ?? The ADA recommends that at least two of three specimens collected within a 3-6 month period be abnormal before considering a patient to be within a diagnostic category. Creatinine, Urine 41 20 - 320 mg/dL [facility] 07/28/2022 10:2 7 AM EST Carie Camargo MD LAB URINE ORDERABLES Fin al Result [facility] from Last 3 Months or Most Recently Relevant to Health Maintenance [place] [address] [place] [address] - [facility] - [facility] Care Teams Engraver Letter Relationship Specialty Start Date End Date Carie Camarog MD [address] [place] [phone] PCP - General Family Medicine 05/08/17 Leisa Ibarra [address] [place] [id number] Dental It Application Administrator 11/10/24
--- OUTSIDE RECORDS SUMMARY | 2024-12-28 12:26 | XMS_ITS | Encounter Summary ---
Author Organization [employer] Address [address] [facility] [address] [place] [address] Care Team Providers Care Edger Machine Helper Name Role Phone Carie Camargo MD Primary Care Provider + Leisa Ibarra Unavailable [phone] Encounter Details Date Type Department Care Team (Late Contact Info) Description 03/11/2023 Abstract [facility] [address] [place], [place] [phone] Carie Camargo MD [address] [place] [address] Social History Tobacco Use Types Packs/Day Years [...] Encounters Date Type Department Care Team (Late Contact Info) Description 01/06/2025 10:45 AM EDT Office Visit [facility] [address] [place], [place] [phone] Leisa Ibarra [address] [place] [address] 02/03/2025 11:00 AM EDT Office Visit [facility] [address] [place] [address] Raza Suzie, OD [address] [place] [address] documented as of this encounter Visit Diagnoses Not on filedocumented in this encounter Care Teams Edger Machine Helper Relationship Specialty Start Date End Date Carie Camargo MD [address] [place], [place] [phone] PCP - General Family Medicine 05/08/17 Leisa Ibarra [address] [place] [address] Dental Assistant Plant Manager 11/10/24 documented as of this encounter
--- OUTSIDE RECORDS SUMMARY | 2024-12-28 12:27 | XMS_ITS | Encounter Summary ---
Author Organization [employer] Address [address] 7[address] [place] [address] Care Team Providers Care Element Setter Name Role Phone Carie Camargo MD Primary Care Provider + Jatinder Ibarrashin Unavailable [phone] Reason for Visit * Reason Comments Med Refill Encounter Details Date Type Department Care Team (Late st Contact Info) Description 06/07/2024 Refill [facility] MEDICINE [address] [place], [place] [phone] Carie Camargo MD [address] [place] [address] Type 2 diabetes mellitus with hyperglycemia, without long-term current use of insulin ([facility]) Social History Tobacco Use Types Packs/Day Years [...] Recorded Patient Health Questionnaire-2 Score 0 03/31/2023 Internet Access Answer Date Recorded Internet Access [...] Description 01/06/2025 10:45 AM EDT Office Visit [facility] ADULT DENTAL [address] [place] [address] Leisa Ibarra [address] [place] [address] 02/03/2025 11:00 AM EDT Office Visit [facility] OPTOMETRY [address] [place] [address] Raza, Suzie, OD [address] [place] [address] documented as of this encounter Visit Diagnoses Diagnosis Type 2 diabetes mellitus with hyperglycemia, without long-term current use of insulin ([facility]) documented in this encounter Care Teams Element Setter Relationship Specialty Start Date End Date Carie Camargo MD [address] [place] [address] PCP - General Family Medicine 05/08/17 Leisa Ibarra [address] [place] [address] Dental News Department Intern 11/10/24 documented as of this encounter
== END 2024-12-28 11:06 | disposition home or self-care (01) ==
LOC: HO.HGI 10:44
PROVIDERS: PCP Internal Medicine; Visit Provider Nurse Practitioner Family
DX: K57.90 Diverticulosis of intestine, part unspecified, without perforation or abscess without bleeding (principal); R14.0 Abdominal distension (gaseous); K59.01 Slow transit constipation; R10.32 Left lower quadrant pain; G89.29 Other chronic pain
CPT/HCPCS: 99213

== ENCOUNTER → 2024-12-28 10:44 | Outpatient (BNVA) | payer OTHER, SELFPAY | PROVIDERS: PCP Internal Medicine; Visit Provider Nurse Practitioner Family | DX: K57.90 Diverticulosis of intestine, part unspecified, without perforation or abscess without bleeding (principal); K21.9 Gastro-esophageal reflux disease without esophagitis; K59.01 Slow transit constipation; R10.32 Left lower quadrant pain; G89.29 Other chronic pain; R14.0 Abdominal distension (gaseous) | CPT/HCPCS: 99212 ==

== ENCOUNTER 2025-05-16 16:10 | Outpatient (AMB) | payer OTHER, SELFPAY ==
--- NOTE | 2025-05-16 16:12 | A.OFFVIS_ITS ---
Vital Signs 05/16/25 16:13 Height 5 ft 6 in Weight 163 lb BMI 26.3 BP 124/72 Blood Pressure Location Rt brachial Position Sitting Pulse 80 Pulse Source Pulse Oximeter Pulse Oximetry (%) 97 Oxygen Delivery Method Room Air Intake Visit Reasons: abd discomfort Intake Note: ESTABLISHED PATIENT for mgmt chronic abd pain. Review diet changes. CC; C.O. intermittent difficulties with laxative medications. Pt states that he is taking the senna PRN but has stopped taking the bisacodyl per having adverse reaction. Conveyor Console Operator Required: No Conveyor Console Operator Services: Conveyor Console Operator Offered & Declined Accompanied by: Self / Same As Patient Allergies No Known Allergies Allergy (Verified 05/16/25 16:12) HPI HPI abd discomfort: Details: LAST VISIT: Diverticulosis Postprandial abdominal bloating Constipation Chronic left lower quadrant pain Plan Continue Dulcolax daily. Increase fluid intake and activity to promote better bowel motility. Patient will increase more vegetables. Discuss with him low FODMAP diet. List of food recommended as well as list of food to avoid given to patient in [place]. Follow-up in 6 months, sooner on as needed basis. He is agreeable to this plan and verbalizes understanding of instructions. He was given the opportunity to ask questions and all questions answered. TODAY'S VISIT: Patient is here today for requested visit. Patient's daughter called the office concerned about ongoing symptoms of her father. Patient was trying to take the to a lax and had severe diarrhea and cramping. He was given script for send now with stool softener, however he has been taking that yet because he did not know what was that for. He has tried to change his diet, however daughter admits that he is cooking with heavy or heels sometimes. He reports abdominal bloating and constipation. Denies any epigastric pain, dyspepsia, dysphagia or odynophagia. Denies any acid reflux. Patient reports some at the colon was working for him for bloating and gas. Patient reports foul-smelling order when passing gas. Patient denies melena, hematochezia, unintentional weight loss or ribbon like stools. Patient is taking high his dose of Ozempic. Tried stopping Ozempic, however his blood sugars went up and he restarted it. [facility] Medical History Diverticulosis Prostate cancer Hypercholesterolemia Diabetes mellitus Surgical History (Updated 05/16/25 @ 16:25 by HELDER Arroyo) Hx of colonoscopy History of eye surgery History of shoulder surgery Social History Alcohol intake: never Patient Tobacco Use Status: Former Tobacco user Current occupational status: disabled Current occupation: rt hand Review of Systems Const Denies weight gain and Denies weight loss ENT Reports no additional complaints, Denies dysphagia and Denies odynophagia Card Reports no additional complaints Resp Reports no additional complaints GI Denies abdominal pain, Denies belching, Denies melena, Reports bloating, Denies change in bowel habits, Reports constipation, Denies dysphagia, Reports excessive flatus, Denies dyspepsia, Denies heartburn, Denies diarrhea, Denies lo ose stools, Denies nausea, Denies odynophagia and Denies vomiting Reports no additional complaints Musc Reports no additional complaints Neuro Reports no additional complaints Psych Reports no additional complaints Endo Reports no additional complaints Physical Exam Vital Signs: Last Vital Signs Pulse 80 05/16/25 16:13 BP 124/72 05/16/25 16:13 Pulse Ox 97 05/16/25 16:13 Oxygen Delivery Method Room Air 05/16/25 16:13 BMI result Body Mass Index 26.3 Const General: healthy appearing, no acute distress and well developed Nutritional Appearance: well nourished Orientation/consciousness: patient oriented x3 Resp Effort & Inspection: normal respiratory effort, able to speak in complete senten chip, no tracheal deviation and symmetric chest movement Auscultation: clear to auscultation bilaterally Cardio Rate: regular rate GI Inspection: Yes normal to inspection and No distended Palpation (GI): Soft to palpation, not firm, nontender and No hepatosplenomegaly present Auscultation: normal bowel sounds General: Yes no CVA tenderness Back/Spine/Pelvis Back: no CVA tenderness Skin General skin exam: elasticity normal, turgor normal and dry skin Neuro General: patient oriented x3 Psych Appearance: grossly normal Mental Status: mental status grossly normal Assessment & Plan Assessment & Plan (1) Diverticulosis: Code(s): K57.90 - Diverticulosis of intestine, part unspecified, without perforation or abscess without bleeding Category: Medical (2) Postprandial abdominal bloating: Code(s): R14.0 - Abdominal distension (gaseous) (3) Constipation: Code(s): K59.00 - Constipation, unspecified Qualifiers: Constipation type: slow transit constipation Qualified Code(s): K59.01 - Slow transit constipation (4) Chronic left lower quadrant pain: Code(s): R10.32 - Left lower quadrant pain; G89.29 - Other chronic pain Plan Patient is here with his daughter. Long discussion about dietary changes. Patient will avoid dietary triggers. List of food to avoid as well as list of food recommended given to patient. Patient will stop taking Dulcolax and will start taking senna Colace combination. Patient reports that he was not taking Colace as he was not sure what was it for. Increase fluid intake and activity to promote better bowel motility. Patient reports feeling very gassy and bloated. Will start him on enzyme therapy. Patient will follow-up in 6-7 weeks, sooner on as needed basis. He is agreeable to this plan and verbalizes understanding of instructions. He was given the opportunity to ask questions and all questions answered. Thank you for allowing me to participate in care Medications: New ooecsj-engegvug-jombbeq 36,000-114,000- 180,000 unit (Creon) administer with meals and/or snacks 1 cap PO QID 120 caps 3RF K86.89 - Other specified diseases of pancreas Changed From sennosides-docusate sodium 8.6-50 mg (Senexon-S) 1 tab PO DAILY To sennosides-docusate sodium 8.6-50 mg (Senexon-S) 2 tab-caps (2 x 8.6-50 mg) PO BEDTIME 60 tabs 3RF Refilled simethicone (Gas Relief Extra Strength) 125 mg PO BID-QID 180 caps 3RF for abdominal pain K21.9 - Gastro-esophageal reflux disease without esophagitis Coding Level of Care Code Est Pt Level 4 (59841) Complex EM visit Add On G2211 Diagnoses Diverticulosis K57.90 Postprandial abdominal bloating R14.0 Slow transit constipation K59.01 Constipation type: slow transit constipation Chronic left lower quadrant pain R10.32; G89.29 Time Spent (min) 35 Comment 25 minutes spent with patient and additional 10 minutes spent reviewing his records
[2025-05-16 16:13] VITALS: BP 124/72; PULSE 80; O2SAT 97; BMI 26.3
--- OUTSIDE RECORDS SUMMARY | 2025-05-16 16:46 | XMS_ITS | Encounter Summary ---
Author Organization [employer] Address [address] [facility] 7t [place] [address] Care Team Providers Care Production Posting Clerk Name Role Phone Carie Camargo MD Primary Care Provider + Leisa Ibarra Unavailable Unavailable Encounter Details Date Type Department Care Team (Late Contact Info) Description 03/11/2023 Abstract [facility] MEDICINE [address] [place] [address] Carie Camargo MD [address] [place] [address] Social History Tobacco Use Types Packs/Day Years [...] Department Care Team (Late Contact Info) Description 08/07/2025 11:00 AM EST Office Visit [facility] OPTOMETRY [address] [place], [place] [phone] Suzie Person OD 230 [place] [address] documented as of this encounter Visit Diagnoses Not on filedocumented in this encounter Care Teams Production Posting Clerk Relationship Specialty Start Date End Date Carie Camargo MD [address] [place] [address] PCP - General Family Medicine 05/08/17 Leisa Ibarra [address] [place] [address] Dental Instrument Technician 11/10/24 documented as of this encounter
--- OUTSIDE RECORDS SUMMARY | 2025-05-16 16:46 | XMS_ITS | Encounter Summary ---
Author Organization [employer] Address [address] [facility] 7t [place] [address] Care Team Providers Care Management Recruiter Name Role Phone Carie Camargo MD Primary Care Provider + Leisa Ibarra Unavailable Unavailable Reason for Visit * Reason Comments Med Refill Encounter Details Date Type Department Care Team ([facility] st Contact Info) Description 09/26/2023 Refill [facility] MEDICINE 230 [place], [place] [phone] Carie Camargo MD [address] [place] [address] Type 2 diabetes mellitus with hyperglycemia, without long-term current use of insulin ([facility]); Encounter for preventive health examination [...] Care Team (Late st Contact Info) Description 08/07/2025 11:00 AM EST Office Visit [facility] OPTOMETRY [address] [place] [address] RazaSuzie winter, OD [address] [place] [address] documented as of this encounter Visit Diagnoses Diagnosis Type 2 diabetes mellitus with hyperglycemia, without long-term current use of insulin ([facility]) Encounter for preventive health examination documented in this encounter Care Teams Management Recruiter Relationship Specialty Start Date End Date Carie Camargo MD [address] [place] [address] PCP - General Family Medicine 05/08/17 Leisa Ibarra [address] [place] [address] Dental Treating Plant Pumper 11/10/24 documented as of this encounter
--- OUTSIDE RECORDS SUMMARY | 2025-05-16 16:46 | XMS_ITS | Encounter Summary ---
Author Organization [employer] Address [address] [facility] 7t [place] [address] Care Team Providers Care Applications Development Analyst Name Role Phone Carie Camargo MD Primary Care Provider + Leisa Ibarra Unavailable Unavailable Reason for Visit * Reason Comments Med Refill Encounter Details Date Type Department Care Team ([facility] Contact Info) Description 08/12/2023 Refill [facility] MEDICINE [address] [place] [address] Carie Camargo MD [address] [place] [address] Social History Tobacco Use Types Packs/Day Years [...] the past 12 months, 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
--- OUTSIDE RECORDS SUMMARY | 2025-05-16 16:46 | XMS_ITS | Encounter Summary ---
Author Organization [employer] Address [address] [facility] 7t [place] [address] Care Team Providers Care Health Professor Name Role Phone Carie Camargo MD Primary Care Provider + Leisa Ibarra Unavailable Unavailable Reason for Visit * Reason Comments Med Refill Encounter Details Date Type Department Care Team ([facility] st Contact Info) Description 04/29/2025 Refill [facility] MEDICINE [address] [place], [place] [phone] Carie Camargo MD [address] [place] [address] Benign hypertension; Type 2 diabetes mellitus with hyperglycemia, without long-term current use of insulin ([facility]) Social History Tobacco Use Types Packs/Day Years [...] Description 08/07/2025 11:00 AM EST Office Visit [facility] OPTOMETRY [address] [place] [address] Raza, Suzie, OD [address] [place] [address] documented as of this encounter Visit Diagnoses Diagnosis Benign hypertension Essential hypertension, benign Type 2 diabetes mellitus with hyperglycemia, without long-term current use of insulin ([facility]) documented in this encounter Additional Health Concerns Assessment Noted Time PHQ-9 Depression Total Score: 0 08/05/20 24 10:44 AM EST documented as of this encounter Care Teams Health Professor Relationship Specialty Start Date End Date Carie Camargo MD [address] [place] [address] PCP - General Family Medicine 05/08/17 Leisa Ibarra [address] [place] [address] Dental Methods Examiner 11/10/24 documented as of this encounter
--- OUTSIDE RECORDS SUMMARY | 2025-05-16 16:46 | XMS_ITS | Encounter Summary ---
Author Organization [employer] Address [address] [place] [address] 7t [place] [address] Care Team Providers Care Silver Spray Worker Name Role Phone Caire Camargo MD Primary Care Provider + Leisa Ibarra Unavailable Unavailable Encounter Details Date Type Department Care Team (Late st Contact Info) Description 08/13/2022 Abstract [facility] MEDICINE [address] [place] [address] ProviderAlexandrea MD Social History Tobacco Use Types Packs/Day Years [...] Description 08/07/2025 11:00 AM EST Office Visit [facility] OPTOMETRY [address] [place] [address] Suzie Person, OD 230 [place] [address] documented as of this encounter Visit Diagnoses Not on filedocumented in this encounter Care Teams Silver Spray Worker Relationship Specialty Start Date End Date Carie Camargo MD [address] [place] [address] PCP - General Family Medicine 05/08/17 Leisa Ibarra [address] [place] [address] Dental Trucking Contractor 11/10/24 documented as of this encounter
--- OUTSIDE RECORDS SUMMARY | 2025-05-16 16:46 | XMS_ITS | Encounter Summary ---
Author Organization [employer] Address [address] [facility] 7t [place] [address] Care Team Providers Care Scrap Dealer Name Role Phone Carie Camargo MD Primary Care Provider + Leisa Ibarra Unavailable Unavailable Reason for Visit * Reason Comments Med Refill Encounter Details Date Type Department Care Team ([facility] Contact Info) Description 09/27/2023 Refill [facility] MEDICINE [address] [place], [place] [phone] Carie Camargo MD [address] [place] [address] Encounter for preventive health examination Social History [...] Description 08/07/2025 11:00 AM EST Office Visit [facility] OPTOMETRY [address] [place], [place] [phone] Suzie Person, CHASITY 230 [place] [address] documented as of this encounter Visit Diagnoses Diagnosis Encounter for preventive health examination documented in this encounter Care Teams Scrap Dealer Relationship Specialty Start Date End Date Carie Camargo MD [address] [place] [address] PCP - General Family Medicine 05/08/17 Leisa Ibarra [address] [place] [address] Dental Oven Unloader 11/10/24 documented as of this encounter
--- OUTSIDE RECORDS SUMMARY | 2025-05-16 16:46 | XMS_ITS | Encounter Summary ---
Author Organization [employer] Address [address] [place] [address] Care Team Providers Care Itinerant Teacher Assistant Name Role Phone Carie Camargo MD Primary Care Provider + Leisa Ibarra Unavailable Unavailable Reason for Visit * Reason Comments Med Refill Encounter Details Date Type Department Care Team ([facility] Contact Info) Description 01/11/2023 Refill [facility] CHC MED & PEDS [address] [place] [address] Carie Camargo MD [address] [place] [address] Social History Tobacco Use Types Packs/Day Years [...] Upcoming Encounters Date Type Department Care Team ([facility] Contact Info) Description 08/07/2025 11:00 AM EST Office Visit [facility] OPTOMETRY [address] [place], [place] [phone] Suzie Person, OD [address] [place] [address] documented as of this encounter Visit Diagnoses Not on filedocumented in this encounter Care Teams Itinerant Teacher Assistant Relationship Specialty Start Date End Date Carie Camargo MD [address] [place] [address] PCP - General Family Medicine 05/08/17 Leisa Ibarra [address] [place] [address] Dental Captain Airline Pilot 11/10/24 documented as of this encounter
--- OUTSIDE RECORDS SUMMARY | 2025-05-16 16:46 | XMS_ITS | Encounter Summary ---
Author Organization [employer] Address [address] [place] [address] Care Team Providers Care Electrician'S Assistant Name Role Phone Carie Camargo MD Primary Care Provider + Leisa Ibarra Unavailable Unavailable Reason for Visit * Reason Comments Med Refill Encounter Details Date Type Department Care Team ([facility] st Contact Info) Description 03/31/2025 Refill [facility] MEDICINE [address] [place], [place] [phone] Carie Camargo MD [address] [place] [address] Social History Tobacco Use Types Packs/Day Years [...] Description 08/07/2025 11:00 AM EST Office Visit [facility] OPTOMETRY [address] [place] [address] Suzie Person, OD [address] [place] [address] documented as of this encounter Visit Diagnoses Not on filedocumented in this encounter Additional Health Concerns Assessment Noted Time PHQ-9 Depression Total Score: 0 08/05/20 24 10:44 AM EST documented as of this encounter Care Teams Electrician'S Assistant Relationship Specialty Start Date End Date Carie Camargo MD [address] [place] [address] PCP - General Family Medicine 05/08/17 Leisa Ibarra [address] [place] [address] Dental Environmental Sustainability Manager 11/10/24 documented as of this encounter
--- OUTSIDE RECORDS SUMMARY | 2025-05-16 16:46 | XMS_ITS | Encounter Summary ---
Author Organization [employer] Address [address] [place] [address] Care Team Providers Care X Ray Service Technician Name Role Phone Carie Camargo MD Primary Care Provider + IbarraLeisa Unavailable Unavailable Reason for Visit * Reason Comments Med Refill Encounter Details Date Type Department Care Team ([facility] st Contact Info) Description 06/07/[address] [facility] MEDICINE [address] [place], [place] [phone] Carie Camargo MD [address] [place] [address] Type 2 diabetes mellitus with hyperglycemia, without long-term current use of insulin ([facility]) Social History Tobacco Use Types Packs/Day Years [...] Description 08/07/2025 11:00 AM EST Office Visit [facility] OPTOMETRY [address] [place], [place] [phone] Raza, Suzie, OD [address] [place] [address] documented as of this encounter Visit Diagnoses Diagnosis Type 2 diabetes mellitus with hyperglycemia, without long-term current use of insulin ([facility]) documented in this encounter Care Teams X Ray Service Technician Relationship Specialty Start Date End Date Carie Camargo MD [address] [place] [address] PCP - General Family Medicine 05/08/17 Leisa Ibarra [address] [place] [address] Dental Survival Equipment Repairer 11/10/24 documented as of this encounter
--- OUTSIDE RECORDS SUMMARY | 2025-05-16 16:46 | XMS_ITS | Encounter Summary ---
Author Organization [employer] Address [address] [place] [address] [address]t [place] [address] Care Team Providers Care Solaris Administrator Name Role Phone Carie Camargo MD Primary Care Provider + Leisa Ibarra Unavailable Unavailable Encounter Details Date Type Department Care Team (Late st Contact Info) Description 08/13/2022 Abstract [facility] MEDICINE [address] [place] [address] ProviderAlexandrea MD Social History Tobacco Use Types [...] Description 08/07/2025 11:00 AM EST Office Visit [facility] OPTOMETRY [address] [place] [address] Suzie Person, OD [address] [place] [address] documented as of this encounter Visit Diagnoses Not on filedocumented in this encounter Care Teams Solaris Administrator Relationship Specialty Start Date End Date Carie Camargo MD [address] [place] [address] PCP - General Family Medicine 05/08/17 Leisa Ibarra [address] [place] [address] Dental Consulting Services Associate 11/10/24 documented as of this encounter
--- OUTSIDE RECORDS SUMMARY | 2025-05-16 16:46 | XMS_ITS | Encounter Summary ---
Author Organization [employer] Address [address] [facility] 7t [place] [address] Care Team Providers Care Batch Dumper Name Role Phone Carie Camargo MD Primary Care Provider + Leisa Ibarra Unavailable Unavailable Encounter Details Date Type Department Care Team (Late Contact Info) Description 09/25/2022 Orders Only [facility] MEDICINE [address] [place], [place] [phone] Carie Camargo MD [address] [place], [place] [phone] Gastroesophageal reflux disease, unspecified whether esophagitis present [...] Description 08/07/2025 11:00 AM EST Office Visit [facility] OPTOMETRY [address] [place], [place] [phone] Raza, Suzie, OD [address] [place], [place] [phone] documented as of this encounter Procedures Procedure [...] EDT) Mumps Virus IgG Antibody 42.70 AU/mL [facility] Comment:AU/mL Interpretation ------- <9.00 Not consistent with immunity9.00-10.99 Equivocal>10.99 Consistent with immunityThe presence of mumps IgG antibody suggests immunizationor past or current infection with mumps virus.THIS TEST WAS PERFORMED AT:[employer] [place] [id number] ORTIZ MD 04/30/2023 9:24 AM EDT 04/30/2023 11:32 AM EDT Carie Camargo MD LAB BLOOD ORDERABLES Fin al Result [facility] [address] [place] [phone] * Measles Antibody (IgG), Immune Status (04/30/2023 9:24 AM EDT) Rubeola IgG (Measles) >300.00 AU/mL [facility] Comment:AU/mL Interpretation ----- <13.50 Not consistent with ubhhszke04.50-16.49 Equivocal>16.49 Consistent with immunityThe presence of measles IgG suggests immunization orpast or current infection with measles virus.For additional information, please refer tohttp://education.EMBI/faq/HNF494(This link is being provided for informational/educational purposes only.)THIS TEST WAS PERFORMED AT:[facility] [address] [phone] ORTIZ MD 04/30/2023 9:24 AM EDT 04/30/2023 11:32 AM EDT Carie Camargo MD LAB BLOOD ORDERABLES Fin al Result Performing Organization Address [facility]/ZIP Co de Phone Number [facility] [address] [place] [phone] * Rubella Antibody (IgG), Immune Status (04/30/2023 9:24 AM EDT) Rubella IgG Antibody >33.00 Index [facility] Comment:Index Interpretation ----- <0.90 Not consistent with immunity 0.90-0.99 Equivocal > or = 1.00 Consistent with immunityThe presence of rubella IgG antibody suggestsimmunization or past or current infection withrubella virus.THIS TEST WAS PERFORMED AT:[facility] [address] [id number] ORTIZ MD 04/30/2023 9:24 AM EDT 04/30/2023 11:32 AM EDT Carie Camargo MD LAB BLOOD ORDERABLES Fin al Result Performing Organization Address [facility]/ZIP Co de Phone Number [facility] [address] [place] [phone] * T-SPOT??.TB (04/30/2023 9:24 AM EDT) T Spot TB Negative Negative [facility] Comment:A negative test resu lt [...] as aquantitative test. TS PANEL A 1 [facility] TS PANEL B 2 [facility] Negative Control Passed [facility] Positive Control Passed [facility] Comment:For additional infor rachelle, please refer tohttp://education.[employer]ec/faq/XKA113(This link is being provided for informational/educational purposes only.)THIS TEST WAS PERFORMED AT:[employer] [id number] [place] [phone] MCCONNELL MD,PHD 04/30/2023 9:24 AM EDT 04/30/2023 11:32 AM EDT us Carie Camargo MD LAB BLOOD ORDERABLES Fin al Result [facility] [address] [place] [phone] documented in this encounter Visit Diagnoses Diagnosis Gastroesophageal reflux disease, unspecified whether esophagitis present documented in this encounter Care Teams Batch Dumper Relationship Specialty Start Date End Date Carie Camargo MD [address] [place] [phone] PCP - General Family Medicine 05/08/17 Leisa Ibarra [address] [place] [address] Dental Milk Runner 11/10/24 documented as of this encounter
--- OUTSIDE RECORDS SUMMARY | 2025-05-16 16:46 | XMS_ITS | Clinical Summary ---
Author Organization [employer] Address [address] [place] [address] 7t [place] [address] Care Team Providers Care Senior Analytical Chemist Name Role Phone Carie Camargo MD Primary Care Provider + Leisa Ibarra Unavailable Unavailable Allergies No known active allergies Medications Ammonium Lactate (Valdez Mystique Emu-Lac) 10 % cream use to both feet daily 10/22/19 19 Active mineral oil-hydrophilic petrolatum (Aquaphor) ointment apply topically over affected area twice daily 02/04/20 17 Active naproxen (Naprosyn) 500 MG tablet Take 1 tablet by mouth. 2 times every day with food 06/06/20 21 Active zoster vaccine, live, (Zostavax) 90532 UNT/0.65ML injection inject 0.65 milliliter by subcutaneous route once 10/22/19 19 Active Blood Pressure kit Check blood pressure daily Active OneTouch [employer]ica Lancets 33G misc Test blood sugar twice a day 100 each 11 04/01/20 23 Active Blood Glucose Monitoring Suppl ([employer]Touch Verio) w/Device kit TEST BLOOD SUGAR TWICE A DAY 1 kit 04/01/20 23 Active simvastatin (Zocor) 40 MG tablet TAKE 1 TABLET BY MOUTH EVERY DAY IN THE EVENING 90 tablet 3 04/14/20 23 Active clotrimazole-bet amethasone (Lotrisone) cream APPLY TO AFFECTED AREA DIRECTED 03/10/20 23 Active glucose blood ([employer]Touch Verio) test stripIndications :Type 2 diabetes mellitus with hyperglycemia, without long-term current use of insulin ([facility]) USE TO TEST BLOOD SUGAR TWICE A DAY 100 strip 11 05/04/20 24 Active Aspirin Low Dose 81 MG EC tablet TAKE 1 TABLET BY MOUTH EVERY DAY 90 tablet 3 06/27/20 24 Active metoprolol succinate XL (Toprol-XL) 25 MG 24 hr tabletIndication s:Benign hypertension TAKE 1 TABLET BY MOUTH EVERY DAY 90 tablet 3 06/27/20 24 Active glipiZIDE (Glucotrol) 10 MG tabletIndication s:Type 2 diabetes mellitus with hyperglycemia, without long-term current use of insulin (CMS/HCC) TAKE 1 TABLET BY MOUTH TWICE A DAY BEFORE BREAKFAST AND EVENING MEAL 180 tablet 3 06/28/20 24 Active lisinopril 5 MG tablet Take 5 mg by mouth. 02/11/20 24 Active LORazepam (Ativan) 0.5 MG tablet Take 0.5 mg by mouth. 02/11/20 24 Active Ozempic, 2 MG/DOSE, 8 MG/3ML solution pen-injector INJECT 2 MG SUBCUTANEOUSLY EVERY WEEK IN THE ABDOMEN, THIGH, OR UPPER ARM 07/23/20 24 Active esomeprazole (NexIUM) [address] capsule Take 40 mg by mouth Once per day. 07/19/20 24 Active pioglitazone (Actos) 30 MG tablet Take 30 mg by mouth Once per day. 06/29/20 24 Active tamsulosin (Flomax) 0.4 MG 24 hr capsule TAKE 1 CAPSULE 30 minutes AFTER dinner daily, MAY INCREASE TO TWICE DAILY if needed DURING radiation THERAPY 07/25/20 24 Active Jardiance 25 MGIndications:Ty pe 2 diabetes mellitus with hyperglycemia, without long-term current use of insulin (CMS/HCC) TAKE 1 TABLET BY MOUTH EVERY DAY IN THE MORNING 90 tablet 2 10/19/19 25 Active doxazosin (Cardura) 4 MG tabletIndication s:Benign hypertension TAKE 1 TABLET BY MOUTH EVERY DAY 90 tablet 2 11/09/19 25 Active loratadine (Claritin) 10 MG tabletIndication s:Encounter for preventive health examination TAKE 1 TABLET BY MOUTH EVERY DAY IN THE MORNING 90 tablet 3 11/09/19 25 Active senna-docusate (Senokot S) 8.6-50 MG tablet Take 1 tablet by mouth Once per day. 30 tablet 11 12/08/19 25 026 Active Multiple Vitamin (Daily-Marvin Multivitamin) tablet TAKE 1 TABLET BY MOUTH EVERY DAY WITH FOOD 90 tablet 3 12/24/19 25 Active Bisacodyl EC 5 MG EC tablet take 2 tablets by mouth daily at bedtime Active GAS RELIEF 125 MG capsule TAKE 1 CAPSULE BY MOUTH 2 TO 4 TIMES A DAY NEEDED FOR ABDOMINAL DISTENTION 12/29/19 25 Active latanoprost (Xalatan) 0.005 % ophthalmic solution Administer 1 drop into both eyes at bedtime. 2.5 mL 5 02/04/20 25 Active gabapentin (Neurontin) 300 MG capsule TAKE 1 CAPSULE BY MOUTH AT BEDTIME 90 capsule 03/13/20 25 Active Active Problems Problem Noted Date Diagnosed Date [...] 12/07/2024 Incontinence of feces with fecal urgency 025 Assessment & Plan (12/07/2024 12:37 PM EDT): [...] mg per week and follow up with Monitor Tech. Continue Glipizide + Jardiance. Follow up with [...] 1:50 PM EST): Uncontrolled, non compliant w/ Maria Luisa Counseled regarding importance of medication compliance Will send prescription for Maria Luisa x 1 m to our pharmacy due to back order at [facility], he will cont prescriptions at [facility] next month Assessment & Plan [...] pt wants to be referred to endocrinology [facility] Pure hypercholesterolemia 03/05/2012 Assessment & Plan (09/22/2024 1:06 PM EST): Advised to take Simvastatin every night and repeat lipids in 6mo. Recommended moderate amount of exercise and increase consumption of fruit, vegetables, fish and high fiber foods. Should decrease consumption of highly saturated fats or trans fats. Encounters Date Type Department Care Team Description 05/11/2025 Telephone [facility] MEDICINE [address] [place] [address] Carie Camargo MD Triage 04/29/2025 Refill [facility] MEDICINE [address] [place] [address] Carie Camargo MD Benign hypertension; Type 2 diabetes mellitus with hyperglycemia, without long-term current use of insulin ([facility]) 03/31/2025 Refill [facility] MEDICINE [address] [place] [address] Carie Camargo MD 03/29/2025 Telephone [facility] MEDICINE [address] [place] [address] Carie Camargo MD Referral 03/10/2025 Refill [facility] MEDICINE [address] [place] [address] Carie Camargo MD 03/02/2025 2:00 PM EDT Office Visit [facility]ULT DENTAL [address] [place], [place] [phone] Jatinder Ibarrashin 02/22/2025 10:00 AM EDT Office Visit [facility] [address] [place], [place] [phone] Jatinder Ibarrashin from Last 3 Months Immunizations Immunization Administration Dates Next Due Influenza High-dose Quadriva [...] Sign Reading Time Taken Comments Blood Pressure 130/84 02/22/2025 11:15 AM EDT Pulse 87 12/07/2024 10:11 AM EDT Temperature 35.6 C (96.1 F) 12/07/2024 10:11 AM EDT Respiratory Rate 20 08/05/2024 10:43 AM EST [...] Description 08/07/2025 11:00 AM EST Office Visit [facility] OPTOMETRY [address] [place] [address] Suzie Person, OD [address] [place] [address] Health Maintenance Due Date Last Done Comments [...] 03/28/2024 Dental Oral Exam 05/11/2025 11/10/2024, 02/09/2017 Influenza Vaccine (#1) 2025 , 09/16/2023, 07/28/2022, Additional history exists Lipid Panel 05/28/2025 05/28/2024, 04/21, 07/28/2022, Additional history exists Depression Screening 08/05/2025 08/05/2024, 08/05/20 Tobacco Screening 03/02/2026 03/02/2025 Eye Exam 08/05/2026 08/05/2024, 07/22, 08/05/2024, Additional history exists Dental X-Ray: Full Mouth 11/11/2027 11/10/2024, 01/20 RSV Patients and Patients Aged 60 years or older (1 - 1-dose 75+ series) 2028 Colonoscopy 08/30/2034 08/30/2024, 04/27/2018 Colorectal Cancer Screening 08/30/2034 Hepatitis C Screening Completed 04/30/2023 Pneumococcal Vaccine: 50+ Years Completed 11/04/2023, 10/05/2013 Zoster Vaccines Completed 11/04/2023, 09/16/2023 HIB Vaccines Aged Out No longer eligi [...] patient's age to complete this topic Meningococcal B Vaccine Aged Out No l onger eligible based on patient's age to complete [...] PRESENTATION, DETAILED AND EXTENSIVE TREATMENT PLANNING Routine 03/02/2025 2:00 PM EDT Chris COMPLETE DENTURE - MANDIBULAR Routine 03/02/2025 2:00 PM EDT Max COMPLETE DENTURE - MAXILLARY Routine 03/02/2025 2:00 PM EDT CASE PRESENTATION, DETAILED AND EXTENSIVE TREATMENT PLANNING Routine 02/22/2025 10:00 AM EDT WAX TRY IN Routine 02/22/2025 10:00 AM EDT POCT GLYCATED HEMOGLOBIN, TOTAL Routine 12/07/2024 10:14 AM EDT Type 2 diabetes mellitus with hyperglycemia, without long-term current use of insulin ([facility]) PANORAMIC RADIOGRAPHIC IMAGE Routine 11/10/2024 2:30 PM EST PERIODIC ORAL EVALUATION - ESTABLISHED PATIENT Routine 11/10/2024 2:30 PM EST HM COLONOSCOPY [...] 120,526 Blood 12/07/2024 10:1 4 AM EDT us Carie Camargo MD POINT OF CARE TEST ENTER /EDIT ORDERABLES Final Result * Hm Colonoscopy (08/30/2024) Pathologist [facility] Colonoscopy Normal Normal [facility] us Carie Camargo MD HEALTH MAINTENANCE Final Result [facility] [address] [place] [address] [phone] * (ABNORMAL) Lipid Panel with Reflex to Direct LDL (05/28/2024 10:05 AM EDT) Pathologist [facility] Triglycerides 96 <150 mg/dL [facility] Comment:Desirable Triglyceri de: less than 150 mg/dLBorderline High Triglyceride 150-199 mg/dLHigh Triglyceride: 200-499 mg/dLVery High Triglyceride: greater than or equal to 5OO mg/dL Cholesterol 182 <200 mg/dL [facility] Comment:Desirable Cholestero l: less than 200 mg/dLBorderline High Cholesterol: 200-239 mg/dLHigh Cholesterol: greater than 239 mg/dL LDL Cholesterol Calculated 111(H) <100 mg/dL [facility] Comment:Desirable LDL: less than 100 mg/dLNear Optimal/Above Optimal LDL: 110- 129 mg/dLBorderline High LDL: 130-159 mg/dLHigh LDL: 160-189 mg/dLVery High LDL: greater than or equal to 190 mg/dL HDL Cholesterol 52 >40 mg/dL [facility] Comment:Desirable HDL: great er than 40 mg/dL Note: This HDL assay may give artificially low results in patients with liver disease. Blood 05/28/2024 10:0 5 AM EDT 05/28/2024 10:05 AM EDT Carie Camargo MD LAB BLOOD ORDERABLES Fin al Result Performing Organization Address [facility] de Phone Number [facility] [address] [place] [phone] * Hepatitis Panel, General (04/30/2023 9:24 AM EDT) Hepatitis A IgM Nonreactive Nonreactive [facility] Comment:IgM antibodies to STRONG V not detected; does not exclude earlyacute or recovered HAV infection. ~Hepatitis B Surface Antibody NONREACTIVE Nonreactive [facility] Comment:Nonreactive: < 8.00 mIU/mL Hepatitis B Core Antibody Nonreactive Nonreactive [facility] Hepatitis C Antibody Nonreactive Nonreactive [facility] Comment:Antibodies to HCV no t detected; does not exclude early acuteHCV infection. Hepatitis B Surface Ag Negative Negative [facility] 04/30/2023 9:24 AM EDT 04/30/2023 11:32 AM EDT Carie Camargo MD LAB BLOOD ORDERABLES Fin al Result Performing Organization Address [facility] de Phone Number [facility] [address] [place] [phone] * ALBUMIN, RANDOM URINE W/CREATININE (07/28/2022 10:27 AM EST) Microalbumin Urine 0.5 See Note: mg/dL [facility] Comment: Reference Range: Reference Range Not established Microalb/Creat Ratio 12 <30 mcg/mg creat [facility] Comment: The ADA defines abnormalities in albumin excretion as follows: Albuminuria Category Result (mcg/mg creatinine) Normal to Mildly increased <30 Moderately increased 30-299 Severely increased > OR = 300 The ADA recommends that at least two [...] Most Recently Relevant to Health Maintenance Insurance [facility] [employer] (HMO D-SNP) DENTAL [facility] Care Teams Senior Analytical Chemist Relationship Specialty Start Date End Date Carie Camargo MD [address] [place] [phone] PCP - General Family Medicine 05/08/17 Leisa Ibarra [address] [place] [address] Dental Hearing Health Technician 11/10/24
--- OUTSIDE RECORDS SUMMARY | 2025-05-16 16:46 | XMS_ITS | Encounter Summary ---
Author Organization [employer] Address [address] [facility] [address] [place] [address] Care Team Providers Care Electronics Tech Name Role Phone Carie Camargo MD Primary Care Provider + Leisa Ibarra Unavailable Unavailable Reason for Visit * Reason Onset Date Comments Triage 05/11/2025 Encounter Details Date Type Department Care Team ([facility] st Contact Info) Description 05/11/2025 Telephone [facility] MEDICINE [address] [place], [place] [phone] Carie Camargo MD [address] [place], [place] [phone] Triage Social History Tobacco Use Types Packs/Day Years [...] encounter Miscellaneous Notes * Telephone Encounter - Messi Benson - 05/11/2025 2:51 PM EDT Symptoms: Lethargic (Tired), Dizziness Outcome: Schedule an urgent appointment (within 4 hours) or talk to a nurse or provider soon Reason: Started within the past 3 days The caller accepted this outcome. documented in this encounter Plan of Treatment Upcoming Encounters Date Type Department Care Team (Late st Contact Info) Description 08/07/2025 11:00 AM EST Office Visit [facility] OPTOMETRY [address] [place] [address] Suzie Person, OD [address] [place] [address] documented as of this encounter Visit Diagnoses Not on filedocumented in this encounter Additional Health Concerns Assessment Noted Time PHQ-9 Depression Total Score: 0 08/05/20 24 10:44 AM EST documented as of this encounter Care Teams Electronics Tech Relationship Specialty Start Date End Date Carie Camargo MD [address] [place] [phone] PCP - General Family Medicine 05/08/17 Leisa Ibarra [address] [place] [address] Dental Call Center Operations Manager 11/10/24 documented as of this encounter
--- OUTSIDE RECORDS SUMMARY | 2025-05-16 16:46 | XMS_ITS | Encounter Summary ---
Author Organization [employer] Address [address] [facility] [address] [place] [address] Care Team Providers Care Specialist Physician Name Role Phone Carie Camargo MD Primary Care Provider + Leisa Ibarra Unavailable Unavailable Reason for Visit * Reason Comments Med Refill Encounter Details Date Type Department Care Team ([facility] Contact Info) Description 02/10/2025 Refill [facility] [address] [place], [place] [phone] Carie Camargo MD [address] [place] [address] Social History Tobacco Use Types Packs/Day Years [...] Description 08/07/2025 11:00 AM EST Office Visit [facility] OPT[facility] [address] [place] [address] Suzie Person, OD [address] [place] [address] documented as of this encounter Visit Diagnoses Not on filedocumented in this encounter Additional Health Concerns Assessment Noted Time PHQ-9 Depression Total Score: 0 08/05/20 24 10:44 AM EST documented as of this encounter Care Teams Specialist Physician Relationship Specialty Start Date End Date Carie Camargo MD [address] [place] [address] PCP - General Family Medicine 05/08/17 Leisa Ibarra [address] [place] [address] Dental Fly Tier 11/10/24 documented as of this encounter
--- OUTSIDE RECORDS SUMMARY | 2025-05-16 16:46 | XMS_ITS | Encounter Summary ---
Author Organization [employer] Address [address] [facility] [address] [place] [address] Care Team Providers Care Echocardiographer Name Role Phone Carie Camargo MD Primary Care Provider + Jatinder Ibarrashin Unavailable Unavailable Reason for Visit * Reason Onset Date Comments Med Refill GEOPHYSICIST Referral Letter 03/19/2023 The patient requested a letter, stating that he qualifies for GEOPHYSICIST services. I called to ask what ADL's he needs assistance with, and reached his voicemail. I left a msg asking him to return my call at ext [phone]. I also reminded him that he has a PE appt on 03/31/23 at 9:15 am. GEOPHYSICIST Referral 03/19/2023 I called the pt regarding his request for a letter, to be referred for GEOPHYSICIST services. He stated that he needs assistance with getting dressed, housekeeping, and laundry. I informed him that once he is referred, he will get a call from the home care agency to schedule an evaluation. He verbalized understanding. Encounter Details Date Type Department Care Team (Late st Contact Info) Description 03/19/2023 Refill [facility] MEDICINE [address] [place] [address] Carie Camargo MD [address] [place] [address] Social History Tobacco Use Types Packs/Day Years [...] for a letter, to be referred for GEOPHYSICIST services. He stated thathe needs assistance with getting dressed, housekeeping, and laundry. I informed him that once he isreferred, he will get a call from the home care agency to schedule an evaluation. He verbalized understanding. * Telephone Encounter - Kia Skinner MA - 03/30/2023 2:58 PM EDT The patient requested a letter, stating that he qualifies for GEOPHYSICIST services. I called to ask what ADL's he needs assistance with, and reached his voicemail. I left a msg asking him to return my call at ext [phone]. I also reminded him that he has a PE appt on 03/31/23 at 9:15 am. documented in this encounter Plan of Treatment Upcoming Encounters Date Type Department Care Team (Late st Contact Info) Description 08/07/2025 11:00 AM EST Office Visit [facility] OPTOMETRY [address] [place] [address] Suzie Person, OD [address] [place] [address] documented as of this encounter Visit Diagnoses Not on filedocumented in this encounter Care Teams Echocardiographer Relationship Specialty Start Date End Date Carie Camargo MD [address] [place] [address] PCP - General Family Medicine 05/08/17 Leisa Ibarra [address] [place] [address] Dental Urgent Care 11/10/24 documented as of this encounter
== END 2025-05-16 17:00 ==
LOC: HO.HGI 16:10
PROVIDERS: PCP Internal Medicine; Visit Provider Nurse Practitioner Family
DX: K57.90 Diverticulosis of intestine, part unspecified, without perforation or abscess without bleeding (principal); R14.0 Abdominal distension (gaseous); K59.01 Slow transit constipation; R10.32 Left lower quadrant pain; G89.29 Other chronic pain
CPT/HCPCS: 99214; G2211

== ENCOUNTER → 2025-05-16 16:10 | Outpatient (BNVA) | payer OTHER, SELFPAY | PROVIDERS: PCP Internal Medicine; Visit Provider Nurse Practitioner Family | DX: K57.90 Diverticulosis of intestine, part unspecified, without perforation or abscess without bleeding (principal); K59.01 Slow transit constipation; R10.32 Left lower quadrant pain; G89.29 Other chronic pain | CPT/HCPCS: 99212 ==

== ENCOUNTER 2025-07-07 10:36 | Outpatient (AMB) | payer OTHER, SELFPAY ==
--- NOTE | 2025-07-07 10:37 | MHC.OFFVIS ---
Vital Signs 07/07/25 10:39 Height 5 ft 6 in Weight 161 lb 13.109 oz BMI 26.1 BP 92/57 L Blood Pressure Location Lt brachial Position Sitting Pulse 87 Intake Visit Reasons: 6-8 week FUV. Constipation mgmt. Intake Note: ESTABLISHED PATIENT for mgmt chronic abd pain. CC: reports improvement with bloating and constipation since last visit. Still on Ozempic. Has follow up to discuss change of medication in September 2025. Payment Collector Required: No Accompanied by: Self / Same As Patient Allergies No Known Allergies Allergy (Verified 07/07/25 10:45) HPI HPI 6-8 week FUV. Constipation mgmt.: Details: LAST VISIT Diverticulosis Postprandial abdominal bloating Constipation Chronic left lower quadrant pain Plan Patient is here with his daughter. Long discussion about dietary changes. Patient will avoid dietary triggers. List of food to avoid as well as list of food recommended given to patient. Patient will stop taking Dulcolax and will start taking senna Colace combination. Patient reports that he was not taking Colace as he was not sure what was it for. Increase fluid intake and activity to promote better bowel motility. Patient reports feeling very gassy and bloated. Will start him on enzyme therapy. Patient will follow-up in 6-7 weeks, sooner on as needed basis. He is agreeable to this plan and verbalizes understanding of instructions. He was given the opportunity to ask questions and all questions answered. ? Thank you for allowing me to participate in care New tqsbby-jnmgkevt-qlobfsd 36,000-114,000- 180,000 unit (Creon) administer with meals and/or snacks 1 cap PO QID 120 caps 3RF K86.89 Changed Changed From sennosides-docusate sodium 8.6-50 mg (Senexon-S) 1 tab PO DAILY Changed To sennosides-docusate sodium 8.6-50 mg (Senexon-S) 2 tab-caps (2 x 8.6-50 mg) PO BEDTIME 60 tabs 3RF Refilled simethicone (Gas Relief Extra Strength) 125 mg PO BID-QID 180 caps 3RF for abdominal pain K21.9 TODAY'S VISIT Patient is here today for follow-up. Patient reports that he has been doing significantly better after started on Creon. Patient also reports that he changed his diet. However he does report that last Thursday he over indulge in eating fast food and he became very bloated and was experiencing cramping and feeling of heaviness. Patient is taking Ozempic, has appointment with PCP to discuss change to different medication in September. Will try to call the office to see if they can see him sooner. Patient is taking simethicone as needed for bloating. Currently is taking senna/docusate sodium 2 capsules daily. Reports that for the most part he is moving his bowels well, sometimes he feels like he still does not empty them completely. Patient reports used magnesium citrate in the past and inquires about getting a script to use it as needed. Patient denies any nausea or vomiting. Denies any dyspepsia, dysphagia or odynophagia. Denies melena, hematochezia, unintentional weight loss or ribbon like stools. [facility] Medical History Diverticulosis Prostate cancer Hypercholesterolemia Diabetes mellitus Surgical History (Updated 05/16/25 @ 16:25 by HELDER Arroyo) Hx of colonoscopy History of eye surgery History of shoulder surgery Social History Alcohol intake: never Patient Tobacco Use Status: Former Tobacco user Current occupational status: disabled Current occupation: rt hand Review of Systems Const Denies weight gain and Denies weight loss ENT Reports no additional complaints, Denies dysphagia and Denies odynophagia Card Reports no additional complaints Resp Reports no additional complaints GI Reports abdominal pain, Denies belching, Denies melena, Reports bloating (Improved), Denies change in bowel habits, Reports constipation, Denies dysphagia, Reports excessive flatus, Denies dyspepsia, Denies heartburn, Denies diarrhea, Denies loose stools, Denies nausea, Denies odynophagia and Denies vomiting Reports no additional complaints Musc Reports no additional complaints Neuro Reports no additional complaints Psych Reports no additional complaints Endo Reports no additional complaints Physical Exam Vital Signs: Last Vital Signs Pulse 87 07/07/25 10:39 BP 92/57 L 07/07/25 10:39 BMI result Body Mass Index 26.1 Const General: healthy appearing, no acute distress and well developed Nutritional Appearance: well nourished Orientation/consciousness: patient oriented x3 Resp Effort & Inspection: normal respiratory effort, able to speak in complete sentences, no tracheal deviation and symmetric chest movement Auscultation: clear to auscultation bilaterally Cardio Rate: regular rate GI Inspection: Yes normal to inspection and No distended Palpation (GI): Soft to palpation, not firm, nontender and No hepatosplenomegaly present Auscultation: normal bowel sounds General: Yes no CVA tenderness Back/Spine/Pelvis Back: no CVA tenderness Skin General skin exam: elasticity normal, turgor normal and dry skin Neuro General: patient oriented x3 Psych Appearance: grossly normal Mental Status: mental status grossly normal Assessment & Plan Assessment & Plan (1) Diverticulosis: Code(s): K57.90 - Diverticulosis of intestine, part unspecified, without perforation or abscess without bleeding Category: Medical (2) Postprandial abdominal bloating: Code(s): R14.0 - Abdominal distension (gaseous) (3) Constipation: Code(s): K59.00 - Constipation, unspecified Qualifiers: Constipation type: slow transit constipation Qualified Code(s): K59.01 - Slow transit constipation (4) Chronic left lower quadrant pain: Code(s): R10.32 - Left lower quadrant pain; G89.29 - Other chronic pain Plan Long discussion with patient about dietary triggers and avoiding them. Discuss low FODMAP diet. Patient was given a list of food recommended. Eat smaller meals and more often. Discussed with patient the problem with over eating when he is on Ozempic. Continue using simethicone as needed and Creon with meals. Increase fluid intake and activity to promote better bowel motility. Continue on senna/docusate sodium combination. Patient can take magnesium citrate as needed, however if he continues to have constipation he probably will be placed on Motegrity for better bowel management. Patient to speak to his PCP about changing Ozempic to Mounjaro, however discussed with patient that he might have similar symptoms. While taking GLP 1 patient should not eat large meals and avoid eating late at night. Patient reports occasional abdominal pain and bloating. Pain in the right and left upper quadrant. Will send him for abdominal ultrasound. I will see patient in 3 months, sooner on as needed basis. He is agreeable to this plan and verbalizes understanding of instructions. He was given the opportunity to ask questions and all questions answered. Thank you for allowing me to participate in his care Orders: Orders US abdomen complete Today R10.9 - Unspecified abdominal pain Medications: New magnesium citrate 150 mL PO DAILY PRN 296 mL 2RF constipation K59.00 - Constipation, unspecified Refilled hkpdrq-syxuyqbr-nhulyxj (pork) 36,000-114,000- 180,000 unit (Creon) administer with meals and/or snacks 1 cap PO QID 120 caps 3RF K86.89 - Other specified diseases of pancreas simethicone (Gas Relief Extra Strength) 125 mg PO BID-QID 180 caps 3RF for abdominal pain K21.9 - Gastro-esophageal reflux disease without esophagitis sennosides-docusate sodium 8.6-50 mg (Senexon-S) 2 tab-caps (2 x 8.6-50 mg) PO BEDTIME 60 tabs 3RF Coding Level of Care Code Est Pt Level 4 (42608) Complex EM visit Add On G2211 Diagnoses Diverticulosis K57.90 Postprandial abdominal bloating R14.0 Slow transit constipation K59.01 Constipation type: slow transit constipation Chronic left lower quadrant pain R10.32; G89.29 Time Spent (min) 35 Comment 25 minutes spent with patient and additional 10 minutes spent reviewing his records
[2025-07-07 10:39] VITALS: BP 92/57; PULSE 87; BMI 26.1
== END 2025-07-07 11:02 | disposition home or self-care (01) ==
LOC: HO.HGI 10:37
PROVIDERS: PCP Internal Medicine; Visit Provider Nurse Practitioner Family
DX: K57.90 Diverticulosis of intestine, part unspecified, without perforation or abscess without bleeding (principal); R14.0 Abdominal distension (gaseous); K59.01 Slow transit constipation; R10.32 Left lower quadrant pain; G89.29 Other chronic pain
CPT/HCPCS: 99214; G2211

== ENCOUNTER → 2025-07-07 10:36 | Outpatient (BNVA) | payer OTHER, SELFPAY | PROVIDERS: PCP Internal Medicine; Visit Provider Nurse Practitioner Family | DX: K59.01 Slow transit constipation (principal); K57.90 Diverticulosis of intestine, part unspecified, without perforation or abscess without bleeding; R14.0 Abdominal distension (gaseous); R10.32 Left lower quadrant pain; G89.29 Other chronic pain | CPT/HCPCS: 99212 ==

== ENCOUNTER 2025-08-29 10:36 | Outpatient (REF) | payer OTHER, SELFPAY ==
--- NOTE | ~2025-08-29 | XR_ITS ---
EXAMINATION: XR KNEE, RIGHT CLINICAL INFORMATION: right knee pain/functional limitation COMPARISON: December 14, 2014 TECHNIQUE: AP view in standing position, lateral and sunrise views of the right knee. FINDINGS: Joint space narrowing involving medial lateral compartment without acute fracture or dislocation. Soft tissues cough secretions in the menisci region. Small volume suprapatellar bursa joint effusion. Vascular calcifications. No lytic or blastic lesions. 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 Small volume suprapatellar bursa joint effusion. Atherosclerosis disease, peripheral. Overall worsening since 2014. Electronically signed by: Edin Ardon MD 08/29/2025 10:58 AM RACHELLE
== END 2025-08-29 10:37 | disposition home or self-care (01) ==
LOC: HO.HHCX 10:36
PROVIDERS: PCP Internal Medicine; Visit Provider Internal Medicine
DX: M17.11 Unilateral primary osteoarthritis, right knee (principal)
CPT/HCPCS: 73562

== ENCOUNTER → 2025-08-29 10:41 | Outpatient (BNV) | payer OTHER, SELFPAY | PROVIDERS: PCP Internal Medicine; Visit Provider Radiology Diagnostic Radiology | DX: M17.11 Unilateral primary osteoarthritis, right knee (principal); J90 Pleural effusion, not elsewhere classified; I25.10 Atherosclerotic heart disease of native coronary artery without angina pectoris | CPT/HCPCS: 73562 ==

== ENCOUNTER 2025-08-30 09:15 | Outpatient (REF) | payer OTHER, SELFPAY ==
--- NOTE | ~2025-08-30 | US_ITS ---
CLINICAL HISTORY: R10.9 - Unspecified abdominal pain US abdomen complete with duplex and color Doppler Comparison: US/AZ/SR - US ABDOMEN - 09/16/23 09:30 EST Findings: The visualized pancreas, aorta, and inferior vena cava are unremarkable. Liver normal size and diffusely echogenic. Right lobe 15.1 cm length. Focal fatty sparing near the gallbladder fossa. Common duct 4.0 mm diameter. Physiologic distention of the gallbladder. No gallstones or sludge. No gallbladder wall thickening. No pericholecystic fluid. No sonographic Gaspar sign. Main portal vein antegrade. Right kidney normal size, 10.4 cm in length. Normal cortical width and echotexture. Benign renal cortical cyst midpole measuring 1.4 x 1.4 x 1.5 cm.No nephrolithiasis. No hydronephrosis. Left kidney normal, 11.1 cm in length. Normal cortical width and echotexture. No solid or cystic renal masses. No nephrolithiasis. No hydronephrosis. Spleen measures 10.1 cm. No splenic masses. No ascites. No lymphadenopathy. Impression: 1. Hepatic steatosis with focal fatty sparing. 2. Benign renal cortical cyst on the right. This document has been electronically signed by: Waldemar Weathers MD on 08/31/2025 09:41:02
== END 2025-08-30 09:16 | disposition home or self-care (01) ==
LOC: HO.US 09:15
PROVIDERS: PCP Internal Medicine; Visit Provider Nurse Practitioner Family
DX: R10.9 Unspecified abdominal pain (principal)
CPT/HCPCS: 76700

== ENCOUNTER → 2025-08-30 09:21 | Outpatient (BNV) | payer OTHER, SELFPAY | PROVIDERS: PCP Internal Medicine; Visit Provider Radiology Diagnostic Radiology | DX: N28.1 Cyst of kidney, acquired (principal); K76.0 Fatty (change of) liver, not elsewhere classified | CPT/HCPCS: 76700 ==

== ENCOUNTER 2025-09-19 08:56 | Outpatient (REF) | payer OTHER, SELFPAY ==
--- OUTSIDE RECORDS SUMMARY | 2025-09-19 11:05 | XMS_ITS | Encounter Summary ---
Author Organization [employer] Address [address] [facility] 7t [place] [address] Care Team Providers Care Cable Rigger Name Role Phone Carie Camargo MD Primary Care Provider + Leisa Ibarra Unavailable Unavailable Reason for Visit * Reason Comments Med Refill Encounter Details Date Type Department Care Team ([facility] Contact Info) Description 01/11/2023 Refill [facility] CHC MED & PEDS [address] [place], [place] [phone] Carie Camargo MD [address] [place], [place] [phone] Social History Tobacco Use Types Packs/Day Years [...] Upcoming Encounters Date Type Department Care Team ([facility] Contact Info) Description 10/30/2025 3:15 PM EST Office Visit [facility] MEDICINE [address] [place] [address] [phone] Carie Camargo MD [address] [place], [place] [phone] 02/05/2026 11:00 AM EDT Office Visit [facility] OPTOMETRY [address] [place], [place] [phone] Raza, Suzie, OD [address] [place] [address] documented as of this encounter Visit Diagnoses Not on filedocumented in this encounter Care Teams Cable Rigger Relationship Specialty Start Date End Date Carie Camargo MD [address] [place], [place] [phone] PCP - General Family Medicine 05/08/17 Leisa Ibarra [address] [place] [phone] Dental Anode Machine Operator 11/10/24 documented as of this encounter
--- OUTSIDE RECORDS SUMMARY | 2025-09-19 11:06 | XMS_ITS | Encounter Summary ---
Author Organization [employer] Address [address] [facility] 7t [place] [address] Care Team Providers Care Professional Fighter Name Role Phone Carie Camargo MD Primary Care Provider + Leisa Ibarra Unavailable Unavailable Reason for Visit * Reason Comments Med Refill Encounter Details Date Type Department Care Team ([facility] Contact Info) Description 09/27/2023 Refill [facility] MEDICINE [address] [place], [place] [phone] Carie Camargo MD [address] [place] [address] Encounter for preventive health examination Social History [...] Care Team (Late st Contact Info) Description 10/30/2025 3:15 PM EST Office Visit [facility] MEDICINE [address] [place] [address] Carie Camargo MD [address] [place] [address] 02/05/2026 11:00 AM EDT Office Visit [facility] OPTOMETRY [address] [place] [address] Raza, Suzie, OD [address] [place] [address] documented as of this encounter Visit Diagnoses Diagnosis Encounter for preventive health examination documented in this encounter Care Teams Professional Fighter Relationship Specialty Start Date End Date Carie Camargo MD [address] [place] [phone] PCP - General Family Medicine 05/08/17 Leisa Ibarra [address] [place] [phone] Dental Workforce Advisor 11/10/24 documented as of this encounter
--- OUTSIDE RECORDS SUMMARY | 2025-09-19 11:06 | XMS_ITS | Encounter Summary ---
Author Organization [employer] Address [address] [facility] 7t [place] [address] Care Team Providers Care Facs Teacher Name Role Phone Carie Camargo MD Primary Care Provider + Leisa Ibarra Unavailable Unavailable Reason for Visit * Reason Comments Med Refill Encounter Details Date Type Department Care Team ([facility] st Contact Info) Description 09/26/2023 Refill [facility] MEDICINE [address] [place], [place] [phone] Carie Camargo MD [address] [place] [address] Type 2 diabetes mellitus with hyperglycemia, without long-term current use of insulin ([facility]); Encounter for preventive health examination Social History [...] Description 10/30/2025 3:15 PM EST Office Visit [facility] MEDICINE [address] [place] [address] Carie Camargo MD [address] [place] [address] 02/05/2026 11:00 AM EDT Office Visit [facility] OPTOMETRY [address] [place] [address] Raza, Suzie, OD [address] [place] [address] documented as of this encounter Visit Diagnoses Diagnosis Type 2 diabetes mellitus with hyperglycemia, without long-term current use of insulin (HCC) Encounter for preventive health examination documented in this encounter Care Teams Facs Teacher Relationship Specialty Start Date End Date Carie Camargo MD [address] [place] [phone] PCP - General Family Medicine 05/08/17 Leisa Ibarra [address] [place] [phone] Dental Pc Maintenance Technician 11/10/24 documented as of this encounter
--- OUTSIDE RECORDS SUMMARY | 2025-09-19 11:06 | XMS_ITS | Encounter Summary ---
Author Organization [employer] Address [address] [facility] [address] 7t [place] [address] Care Team Providers Care Clinical Rn Liaison Name Role Phone Carie Camargo MD Primary Care Provider + Jatinder Ibarrashin Unavailable Unavailable Reason for Visit * Reason Onset Date Comments Med Refill STOCKROOM CLERK Referral Letter 03/19/2023 The patient requested a letter, stating that he qualifies for STOCKROOM CLERK services. I called to ask what ADL's he needs assistance with, and reached his voicemail. I left a msg asking him to return my call at ext [phone]. I also reminded him that he has a PE appt on 03/31/23 at 9:15 am. STOCKROOM CLERK Referral 03/19/2023 I called the pt regarding his request for a letter, to be referred for STOCKROOM CLERK services. He stated that he needs assistance with getting dressed, housekeeping, and laundry. I informed him that once he is referred, he will get a call from the home care agency to schedule an evaluation. He verbalized understanding. Encounter Details Date Type Department Care Team (Late st Contact Info) Description 03/19/[address] [facility] MEDICINE [address] [place] [address] Carie Camargo MD [address] [place] [address] Social History Tobacco Use Types Packs/Day Years [...] for a letter, to be referred for STOCKROOM CLERK services. He stated thathe needs assistance with getting dressed, housekeeping, and laundry. I informed him that once he isreferred, he will get a call from the home care agency to schedule an evaluation. He verbalized understanding. * Telephone Encounter - Kia Skinner [place] - 03/30/2023 2:58 PM EDT The patient requested a letter, stating that he qualifies for STOCKROOM CLERK services. I called to ask what ADL's he needs assistance with, and reached his voicemail. I left a msg asking him to return my call at ext [phone]. I also reminded him that he has a PE appt on 03/31/23 at 9:15 am. documented in this encounter Plan of Treatment Upcoming Encounters Date Type Department Care Team (Late st Contact Info) Description 10/30/2025 3:15 PM EST Office Visit [facility] MEDICINE [address] [place] [address] Carie Camargo MD [address] [place] [address] 02/05/2026 11:00 AM EDT Office Visit [facility] OPTOMETRY [address] [place] [address] Suzie Person, OD [address] [place] [address] documented as of this encounter Visit Diagnoses Not on filedocumented in this encounter Care Teams Clinical Rn Liaison Relationship Specialty Start Date End Date Carie Camargo MD [address] [place] [address] PCP - General Family Medicine 05/08/17 Leisa Ibarra [address] [place] [address] Dental Marketing Financial Analyst 11/10/24 documented as of this encounter
--- OUTSIDE RECORDS SUMMARY | 2025-09-19 11:06 | XMS_ITS | Encounter Summary ---
Author Organization [employer] Address [address] [facility] 7t [place] [address] Care Team Providers Care Conveyor Monitor Name Role Phone Carie Camargo MD Primary Care Provider + IbarraLeisa Unavailable Unavailable Encounter Details Date Type Department Care Team (Late Contact Info) Description 09/25/2022 Orders Only [facility] MEDICINE [address] [place] [address] [phone] Carie Camargo MD [address] [place], [place] [phone] Gastroesophageal reflux disease, unspecified whether esophagitis present [...] Department Care Team (Late Contact Info) Description 10/30/2025 3:15 PM EST Office Visit [facility] MEDICINE [address] [place] [address] [phone] Carie Camargo MD [address] [place], [place] [phone] 02/05/2026 11:00 AM EDT Office Visit [facility] OPTOMETRY [address] [place], [place] [phone] Suzie Person, OD [address] [place] [address] documented as of this encounter Procedures Procedure [...] (IgG), Immune Status (04/30/2023 9:24 AM EDT) Pathologist [facility] Mumps Virus IgG Antibody 42.70 AU/mL [facility] Comment:AU/mL Interpretation ------- <9.00 Not consistent with immunity9.00-10.99 Equivocal>10.99 Consistent with immunityThe presence of mumps IgG antibody suggests immunizationor past or current infection with mumps virus.THIS TEST WAS PERFORMED AT:[facility] [address] [phone] ORTIZ MD 04/30/2023 9:24 AM EDT 04/30/2023 11:32 AM EDT Carie Camargo MD LAB BLOOD ORDERABLES Fin al Result [facility] [address] [place] [address] [phone] * Measles Antibody (IgG), Immune Status (04/30/2023 9:24 AM EDT) Rubeola IgG (Measles) >300.00 AU/mL [facility] Comment:AU/mL Interpretation ----- <13.50 Not consistent with ddfewuts72.50-16.49 Equivocal>16.49 Consistent with immunityThe presence of measles IgG suggests immunization orpast or current infection with measles virus.For additional information, please refer tohttp://education.[employer]/faq/SCC405(This link is being provided for informational/educational purposes only.)THIS TEST WAS PERFORMED AT:[facility] [place] [id number] ORTIZ MD 04/30/2023 9:24 AM EDT 04/30/2023 11:32 AM EDT Carie Camargo MD LAB BLOOD ORDERABLES Fin al Result Performing Organization Address [facility] de Phone Number [facility] [address] [place] [phone] * Rubella Antibody (IgG), Immune Status (04/30/2023 9:24 AM EDT) Rubella IgG Antibody >33.00 Index [facility] Comment:Index Interpretation ----- <0.90 Not consistent with immunity 0.90-0.99 Equivocal > or = 1.00 Consistent with immunityThe presence of rubella IgG antibody suggestsimmunization or past or current infection withrubella virus.THIS TEST WAS PERFORMED AT:[facility] [place] [id number] ORTIZ MD 04/30/2023 9:24 AM EDT 04/30/2023 11:32 AM EDT Carie Camargo MD LAB BLOOD ORDERABLES Fin al Result Performing Organization Address [facility] de Phone Number [facility] [address] [place] [address] [phone] * T-SPOT??.TB (04/30/2023 9:24 AM EDT) T Spot TB Negative Negative [facility] Comment:A negative test resu lt does [...] as aquantitative test. TS PANEL A 1 [facility] TS PANEL B 2 [facility] Negative Control Passed [facility] Positive Control Passed [facility] Comment:For additional infor rachelle, please refer tohttp://education.[employer]/faq/WRZ797(This link is being provided for informational/educational purposes only.)THIS TEST WAS PERFORMED AT:[facility] [place] [address]TEMILYEJORGE MCCONNELL MD,PHD 04/30/2023 9:24 AM EDT 04/30/2023 11:32 AM EDT us Carie Camargo MD LAB BLOOD ORDERABLES Fin al Result [facility] [address] [place] [address] [phone] documented in this encounter Visit Diagnoses Diagnosis Gastroesophageal reflux disease, unspecified whether esophagitis present documented in this encounter Care Teams Conveyor Monitor Relationship Specialty Start Date End Date Carie Camargo MD [address] [place] [address] PCP - General Family Medicine 05/08/17 Leisa Ibarra [address] [place] [address] Dental Fire Range Technician 11/10/24 documented as of this encounter
--- OUTSIDE RECORDS SUMMARY | 2025-09-19 11:06 | XMS_ITS | Encounter Summary ---
Author Organization [employer] Address [address] [facility] [address] [place] [address] Care Team Providers Care Hand Weaver Name Role Phone Carie Camargo MD Primary Care Provider + Leisa Ibarra Unavailable Unavailable Reason for Visit * Reason Comments Med Refill Encounter Details Date Type Department Care Team ([facility] Contact Info) Description 02/10/2025 Refill [facility] MEDICINE [address] [place], [place] [phone] Carie Camargo MD [address] [place] [address] Social History Tobacco Use Types Packs/Day Years [...] Description 10/30/2025 3:15 PM EST Office Visit [facility] MEDICINE [address] [place] [address] Carie Camargo MD [address] [place] [address] 02/05/2026 11:00 AM EDT Office Visit [facility] OPTOMETRY [address] [place] [address] Raza, Suzie, OD [address] [place] [address] documented as of this encounter Visit Diagnoses Not on filedocumented in this encounter Additional Health Concerns Assessment Noted Time PHQ-9 Depression Total Score: 0 08/05/20 24 10:44 AM EST documented as of this encounter Care Teams Hand Weaver Relationship Specialty Start Date End Date Carie Camargo MD [address] [place] [phone] PCP - General Family Medicine 05/08/17 Leisa Ibarra [address] [place] [phone] Dental Radiology Receptionist 11/10/24 documented as of this encounter
--- OUTSIDE RECORDS SUMMARY | 2025-09-19 11:06 | XMS_ITS | Encounter Summary ---
Author Organization [employer] Address [address] [place] [address] Care Team Providers Care Pharmacy Account Director Name Role Phone Carie Camargo MD Primary Care Provider + IbarraLeisa Unavailable Unavailable Encounter Details Date Type Department Care Team (Late st Contact Info) Description 08/13/2022 Abstract [facility] [address] [place] [address] ProviderAlexandrea MD Social History Tobacco Use Types [...] Description 10/30/2025 3:15 PM EST Office Visit [facility] [address] [place] [address] Carie Camargo MD [address] [place] [address] 02/05/2026 11:00 AM EDT Office Visit [facility] [address] [place] [address] Suzie Person, OD [address] [place] [address] documented as of this encounter Visit Diagnoses Not on filedocumented in this encounter Care Teams Pharmacy Account Director Relationship Specialty Start Date End Date Carie Camargo MD [address] [place] [address] PCP - General Family Medicine 05/08/17 Leisa Ibarra [address] [place] [address] Dental Manager Credit Collections 11/10/24 documented as of this encounter
--- OUTSIDE RECORDS SUMMARY | 2025-09-19 11:06 | XMS_ITS | Encounter Summary ---
Author Organization [employer] Address [address] [place] [address] Care Team Providers Care Make Ready Worker Name Role Phone Carie Camargo MD Primary Care Provider + Leisa Ibarra Unavailable Unavailable Encounter Details Date Type Department Care Team (Late st Contact Info) Description 08/29/2025 Results Follow-Up [facility] [address] [place] [address] Carie Camargo MD [address] [place] [address] XR Knee 3 Views Right Social History Tobacco Use Types Packs/Day Years Used Date Smoking Tobacco: Never Passive Smoke Exposure: Never Smokeless Tobacco: Never Alcohol Use Standard Drinks/Week Comments Never 0 (1 standard drink = 0.6 oz pur e alcohol) Alcohol Answer Date Recorded How often do you have a drink containing alcohol ? 0 08/29/2025 Average Number of Drinks Not on file 025 How often do you have six or more drinks on one occasion? 0 08/29/2025 Depression Answer Date Recorded Patient Health Questionnaire-9 Score 0 08/05/2024 Patient Health Questionnaire-9 Score 0 08/05/2024 Last PHQ-9: Questionnaire Data Not on file 1 10/05/2023 Housing Stability Answer Date Recorded What is your housing situation today? I have ct [address] 08/15/[address] you li ve. Do you have problems with any of the following? None of the above 08/15/2025 Food Insecurity Answer Date Recorded Within the past 12 months, y ou worried that your food would run out before you got money to buy more: Never True 08/15/2025 Within the past 12 months,th e food you bought just didn't last and you didn't have enough money to get more: Never True Transportation Answer Date Recorded In the past 12 months, has l ack of transportation kept you from medical appts, meetings, work or from getting things needed for daily living? No 08/15/2025 Utilities Answer Date Recorded In the past 12 months, has t he electric, gas, oil or water company threatened to shut off services in your home? No 08/15/2025 Depression Answer Date Recorded Patient Health Questionnaire-2 Score 0 08/05/2024 Internet Access Answer Date Recorded Internet Access Q1 Yes 08/15/2025 Internet Access Q2 Not on file 08/15/2025 Sex and Gender Information Value Date Recorded Sex Assigned at Male 07/21/2022 10:16 AM EDT Legal Sex Male 10:16 AM EDT Gender Identity Male 07/21/2022 10:16 AM EDT Sexual Orientation Straight 07/21/2022 10 :16 AM EDT documented as of this encounter Miscellaneous Notes * Result Encounter Note - Carie Camargo MD - 08/29/2025 3:03 PM EST Xray done today are c/w advanced OA. Findings d/w patient and will continue with current POC, I will fu with him at next appointment to see if he needs ortho ref. documented in this encounter Plan of Treatment Upcoming Encounters Date Type Department Care Team (Late st Contact Info) Description 10/30/2025 3:15 PM EST Office Visit [facility] [address] [place] [address] Carie Camargo MD [address] [place] [address] 02/05/2026 11:00 AM EDT Office Visit [facility] [address] [place] [address] Suzie Person, OD [address] [place] [address] documented as of this encounter Goals Goal Patient Goal Type Associated Problems Recent Progress Patient-Stated? Author Help patients manage their type 2 diabetes Care Plan Help patients manage their type 2 diabetes No Raza, Suzie, OD Weekly blood pressure task Care Plan Weekly blood pressure task No Raza, Suzie, OD Help patients manage their type 2 diabetes Care Plan Help patients manage their type 2 diabetes No Raza, Suzie, OD Patient has chronic kidney disease Care Plan Patient has chronic kidney disease No Raza, Suzie, OD Weekly blood pressure task Care Plan Weekly blood pressure task No Raza, Suzie, OD Patient has chronic kidney disease Care Plan Patient has chronic kidney disease No Raza, Suzie, OD Weekly blood pressure task Care Plan Weekly blood pressure task No Becky Grant Weekly blood pressure task Care Plan Weekly blood pressure task No Becky Grant Patient has chronic kidney disease Care Plan Patient has chronic kidney disease No Becky Grant Patient has chronic kidney disease Care Plan Patient has chronic kidney disease No Becky Grant Weekly blood pressure task Care Plan Weekly blood pressure task No [place], [place] Weekly blood pressure task Care Plan Weekly blood pressure task No [place] Patient has chronic kidney disease Care Plan Patient has chronic kidney disease No [place], [place] Patient has chronic kidney disease Care Plan Patient has chronic kidney disease No [place] Weekly blood pressure task Care Plan Weekly blood pressure task No [place] Weekly blood pressure task Care Plan Weekly blood pressure task No [place], [place] Patient has chronic kidney disease Care Plan Patient has chronic kidney disease No [place], [place] Patient has chronic kidney disease Care Plan Patient has chronic kidney disease No [place], [place] Weekly blood pressure task Care Plan Weekly blood pressure task No Carie Camargo MD Weekly blood pressure task Care Plan Weekly blood pressure task No Carie Camargo MD Patient has chronic kidney disease Care Plan Patient has chronic kidney disease No Carie Camargo MD Patient has chronic kidney disease Care Plan Patient has chronic kidney disease No Carie Camargo MD Weekly blood pressure task Care Plan Weekly blood pressure task No Arleen Hdez Weekly blood pressure task Care Plan Weekly blood pressure task No Lemuel Arleen Patient has chronic kidney disease Care Plan Patient has chronic kidney disease No Dakotah Hdezelle Patient has chronic kidney disease Care Plan Patient has chronic kidney disease No Arleen Hdez documented as of this encounter Visit Diagnoses Not on filedocumented in this encounter Additional Health Concerns Active Problems Noted Date Diagnosed Date Help patients manage their type 2 diabetes 08/07 Weekly blood pressure task 08/07/2025 Help patients manage their type 2 diabetes 08/07 Patient has chronic kidney disease 08/07/2025 Weekly blood pressure task 08/07/2025 Patient has chronic kidney disease 08/07/2025 Weekly blood pressure task 08/15/2025 Weekly blood pressure task 08/15/2025 Patient has chronic kidney disease 08/15/2025 Patient has chronic kidney disease 08/15/2025 Weekly blood pressure task 08/28/2025 Weekly blood pressure task 08/28/2025 Patient has chronic kidney disease 08/28/2025 Patient has chronic kidney disease 08/28/2025 Weekly blood pressure task 08/28/2025 Weekly blood pressure task 08/28/2025 Patient has chronic kidney disease 08/28/2025 Patient has chronic kidney disease 08/28/2025 Weekly blood pressure task 08/29/2025 Weekly blood pressure task 08/29/2025 Patient has chronic kidney disease 08/29/2025 Patient has chronic kidney disease 08/29/2025 Weekly blood pressure task 08/29/2025 Weekly blood pressure task 08/29/2025 Patient has chronic kidney disease 08/29/2025 Patient has chronic kidney disease 08/29/2025 Assessment Noted Time PHQ-9 Depression Total Score: 0 08/05/20 24 10:44 AM EST documented as of this encounter Care Teams Make Ready Worker Relationship Specialty Start Date End Date Carie Camargo MD [address] [place] [address] PCP - General Family Medicine 05/08/17 Leisa Ibarra [address] [place] [address] Dental Account Receivable Associate 11/10/24 documented as of this encounter
--- OUTSIDE RECORDS SUMMARY | 2025-09-19 11:06 | XMS_ITS | Encounter Summary ---
Author Organization [employer] Address [address] [facility] [address] [place] [address] Care Team Providers Care Catalogue Compiler Name Role Phone Carie Camargo MD Primary Care Provider + Leisa Ibarra Unavailable Unavailable Encounter Details Date Type Department Care Team (Late Contact Info) Description 03/11/2023 Abstract [facility] [address] [place] [address] [phone] Carie Camargo MD [address] [place] [address] [phone] Social History Tobacco Use Types Packs/Day Years [...] [facility] [address] [place], [place] [phone] Carie Camargo MD [address] [place], [place] [phone] 02/05/2026 11:00 AM EDT Office Visit [facility] [address] [place] [address] [phone] Suzie Person, OD [address] [place] [address] documented as of this encounter Visit Diagnoses Not on filedocumented in this encounter Care Teams Catalogue Compiler Relationship Specialty Start Date End Date Carie Camargo MD [address] [place] [address] PCP - General Family Medicine 05/08/17 Leisa Ibarra [address] [place] [phone] Dental Cell Stripper Final 11/10/24 documented as of this encounter
--- OUTSIDE RECORDS SUMMARY | 2025-09-19 11:06 | XMS_ITS | Clinical Summary ---
Author Organization [employer] Address [address] [place] [address] Care Team Providers Care Straddle Bug Operator Name Role Phone Carie Camargo MD Primary Care Provider + Leisa Ibarra Unavailable Unavailable Allergies No known active allergies Medications mineral oil-hydrophilic petrolatum (Aquaphor) ointment apply topically over affected area twice daily 017 Active naproxen (Naprosyn) 500 MG tablet Take 1 tablet by mouth. 2 times every day with food 021 Active zoster vaccine, live, (Zostavax) 05305 UNT/0.65ML injection inject 0.65 milliliter by subcutaneous [...] APPLY TO AFFECTED AREA DIRECTED 023 Active Aspirin Low Dose 81 MG EC tablet TAKE 1 TABLET BY MOUTH EVERY DAY 90 tablet 3 024 Active metoprolol succinate XL (Toprol-XL) 25 MG 24 hr tabletIndicatio ns:Benign hypertension TAKE 1 TABLET BY MOUTH EVERY DAY 90 tablet 3 024 Active glipiZIDE (Glucotrol) 10 MG tabletIndicatio ns:Type 2 diabetes mellitus with hyperglycemia, without long-term current use of insulin (HCC) TAKE 1 TABLET BY MOUTH TWICE A DAY BEFORE BREAKFAST AND EVENING MEAL 180 tablet 3 Active lisinopril 5 MG tablet Take 5 mg by mouth. Active LORazepam (Ativan) 0.5 MG tablet Take 0.5 mg by mouth. Active esomeprazole (NexIUM) [address] capsule Take 40 mg by mouth Once per day. Active pioglitazone (Actos) 30 MG tablet Take 30 mg by mouth Once per day. Active tamsulosin (Flomax) 0.4 MG 24 hr capsule TAKE 1 CAPSULE 30 minutes AFTER dinner daily, MAY INCREASE TO TWICE DAILY if needed DURING radiation THERAPY Active doxazosin (Cardura) 4 MG tabletIndicatio ns:Benign hypertension TAKE 1 TABLET BY MOUTH EVERY DAY 90 tablet 2 Active loratadine (Claritin) 10 MG tabletIndicatio ns:Encounter for preventive health examination TAKE 1 TABLET BY MOUTH EVERY DAY IN THE MORNING 90 tablet 3 Active senna-docusate (Senokot S) 8.6-50 MG tablet Take 1 tablet by mouth Once per day. 30 tablet 11 025 2025 Active Multiple Vitamin (Daily-Marvin Multivitamin) tablet TAKE 1 TABLET BY MOUTH EVERY DAY WITH FOOD 90 tablet 3 Active Bisacodyl EC 5 MG EC tablet take 2 tablets by mouth daily at bedtime Active GAS RELIEF 125 MG capsule TAKE 1 CAPSULE BY MOUTH 2 TO 4 TIMES A DAY NEEDED FOR ABDOMINAL DISTENTION Active latanoprost (Xalatan) 0.005 % ophthalmic solution Administer 1 drop into both eyes at bedtime. 2.5 mL 5 Active gabapentin (Neurontin) 300 MG capsule TAKE 1 CAPSULE BY MOUTH AT BEDTIME 90 capsule Active OneTouch Verio test stripIndication s:Type 2 diabetes mellitus with hyperglycemia, without long-term current use of insulin (HCC) USE TO TEST BLOOD SUGAR TWICE A DAY 100 strip 11 Active Ozempic, 2 MG/DOSE, 8 MG/3ML solution pen-injector Inject 0.75 mL (2 mg) under the skin 1 (one) time per week. INJECT 2 MG SUBCUTANEOUSLY EVERY WEEK IN THE ABDOMEN, THIGH, OR UPPER ARMINJECT 2 MG SUBCUTANEOUSLY EVERY WEEK IN THE ABDOMEN, THIGH, OR UPPER ARM 3 mL 1 Active lidocaine (Lidoderm) 5 % patchIndication s:Chronic midline low back pain without sciatica Apply 1 patch topically Once per day. Remove & discard patch within 12 hours or as directed by MD. 30 patch Active acetaminophen (Tylenol Extra Strength) 500 MG tablet Take 1 tablet (500 mg) by mouth every 6 (six) hours if needed for mild pain. 120 tablet 025 2025 Active Creon 67262-912853 units capsule delayed-release particles capsule TAKE 1 CAPSULE BY MOUTH FOUR TIMES A DAY WITH FOOD Active empagliflozin (Jardiance) 25 MGIndications:T ype 2 diabetes mellitus with hyperglycemia, without long-term current use of insulin (HCC) Take 1 tablet (25 mg) by mouth in the morning. 90 tablet 2 025 Active Ammonium Lactate (Valdez Mystique Emu-Lac) 10 % cream use to both feet daily 019 2024 Discontinued(T herapy completed) Jardiance 25 MGIndications:T ype 2 diabetes mellitus with hyperglycemia, without long-term current use of insulin (HCC) TAKE 1 TABLET BY MOUTH EVERY DAY IN THE MORNING 90 tablet 2 025 2024 Discontinued(R eorder (will not trigger notification to Pharmacy)) Active Problems Problem Noted Date Diagnosed Date Chronic midline low back pain without sciatica 1 10/30/2024 Assessment & Plan (08/29/2025 11:28 AM EST): Take tylenol prn. FU in 2 mo, may need Xray L-spine if sxs do not improve. Forgetfulness 08/29/2025 Assessment & Plan (08/29/2025 11:32 AM EST): MMSE is 27 today, he has mostly decreased attention and obviously has significant RF for vascular dementia. We discussed the importance of optimize Rx of hypertension DM, HLD We discussed re increasing physical activity, at least 15-20min of daily mod exercise + doing daily puzzles or crosswords and reading a comic book or newspaper. Order labs and fu at next RV. Overweight 08/29/2025 Assessment & Plan (08/29/2025 11:36 AM EST): He's on Ozempic and has been putting weight for the past 6mo. Discussed re weight reduction options including exercise, life style modifications, diet. Recommended to decrease soda and sugary beverage consumption, increase protein intake with meals (at least 1 portion of protein with each meal) to assist with satiety, increase dietary fiber Recommended at least 150 min/week of moderate intensity exercise. Abdominal distension 12/07/2024 Assessment & Plan (08/29/2025 11:34 AM EST): Seen by GI, fu abdominal US. I told him to reach out to endocrinology to explore the possibility of switching from Ozempic to Mounjaro and se if side effects are less. Advised to have a daily BM and take sennokot daily if needed. Assessment & Plan (12/07/2024 12:28 PM EDT): [...] Advised to increase outdoor exercise Prostate cancer (CMS/HCC) 02/12/2024 Overview (02/12/2024): Sp TRUSP 12/15/23 : Squires 4+3 Assessment & Plan (12/07/2024 10:51 AM [...] activity as tolerated. FU in 2 months. Allergic conjunctivitis 12/14/2018 Meralgia paresthetica 09/06/2018 Right leg pain 09/06/2018 Anxiety 12/11/2017 Neck pain 09/09/2017 Shoulder pain 09/09/2017 Microscopic hematuria 10/05/2013 Lipoma of right upper extremity 06/06/2013 Degenerative joint disease of hand 06/22/2012 Erectile dysfunction associa bryan with type 2 diabetes mellitus 06/22/2012 Assessment & Plan (08/29/2025 11:15 AM EST): Sec to half-way uncontrolled DM + antiandrogen prescription for prostate Ca. Assessment & Plan (08/29/2025 10:15 AM EST): >>ASSESSMENT AND PLAN FOR ERECTILE DYSFUNCTION WRITTEN ON 03/31/2023 10:38 AM BY SRIKANTH PRAKASH related to uncontrolled DM, stressed importance of DM control viagra 50 mg, cautioned with side effects facial flushing, dizziness Assessment & Plan (12/07/2024 12:35 PM EDT): Patient not taking any medication due to decreased libido s/p Lupron therapy rx. Gastroesophageal reflux disease 06/22/2012 Osteoarthritis of knee 06/22/2012 Assessment & Plan (08/29/2025 11:17 AM EST): Most likely sec to DJD, may need ortho referral. Will start with PT to decrease risk of falls. Advised to take tylenol prn PVCs (premature ventricular contractions) 2011 Benign hypertension 05/06/2012 Assessment & Plan (08/29/2025 11:14 AM EST): Controlled. Compliant w/meds Continue lisinopril + metoprolol same dose Counseled re low salt diet/increase moderate physical activity. Check home BP BIW and prn CP/STRONG/OSPINA Non smoking patient. Order labs and fu in 3m Assessment & Plan (03/13/2024 5:07 PM EDT): Controlled. Compliant w/meds Continue lisinopril + metoprolol same dose Counseled re low salt diet/increase moderate physical activity. Check home BP BIW and prn CP/STRONG/OSPINA Non smoking patient. Order labs and fu in 3m Assessment & Plan (03/31/2023 10:37 AM EDT): Controlled. Continue low dose lisinopril and metoprolol order labs Counseled re low salt diet/increase moderate physical activity. Check home BP BIW and prn CP/STRONG/OSPINA Non smoking patient. Benign prostatic hyperplasia 03/05/2012 Cataract 03/05/2012 Diabetes mellitus, type 2 03/05/2012 Assessment & Plan (08/29/2025 3:02 PM EST): Controlled. A1c is at goal. Continue on Ozempic, glipizide, actos prescription by endo ([facility] [place]). Jardiance is not on endocrinology med list but patient is still taking it from a previous prescription, I advised him to FU with endo and make them aware of that med, his DM is controlled on it as well.. Counseled re more frequent low calorie/carb meals. Check fgstk 1x daily Encouraged physical activity as tolerated. FU in 3 months. Opthalmology evaluation is up to date 03/17/25 ([facility] office), he has glaucoma but otherwise no mention of DM retinopathy. Foot examination is normal, no diabetic neuropathy. Will use Mositurizing on plantar areas every night. Declined Covid and Tdap IZ today. Influenza vax is up to date. Assessment & Plan (12/07/2024 1:23 PM EDT): [...] mg per week and follow up with Accreditation Specialist. Continue Glipizide + Jardiance. Follow up [...] our pharmacy due to back order at [facility], he will cont prescriptions at [facility] next month Assessment & Plan (08/06/2023 10:48 [...] pt wants to be referred to endocrinology [facility] Pure hypercholesterolemia 03/05/2012 Assessment & Plan (08/29/2025 11:12 AM EST): Restarted simvastatin few weeks ago. FU lipids in 3mo Recommended moderate amount of exercise and increase consumption of fruit, vegetables, fish and high fiber foods. Should decrease consumption of highly saturated fats or trans fats. Assessment & Plan (09/22/2024 1:06 PM EST): Advised to take Simvastatin every night and repeat lipids in 6mo. Recommended moderate amount of exercise and increase consumption of fruit, vegetables, fish and high fiber foods. Should decrease consumption of highly saturated fats or trans fats. Resolved Problems Problem Noted Date Diagnosed Date Resolved Date Weight loss 08/21/2022 08/29/2025 Encounters Date Type Department Care Team Description 09/08/2025 Telephone [facility] [address] [place] [address] Carie Camargo MD Prior Authorization (PA: Lidocaine 5% Patch) 09/04/2025 Refill [facility] [address], [place] [id number] Carie Camargo MD Type 2 diabetes mellitus with hyperglycemia, without long-term current use of insulin (HCC) 08/31/2025 Refill [facility] [address] [place] [address] Carie Camargo MD 08/30/2025 Orders Only [facility] External Provider, [facility] 08/29/2025 9:45 AM EST Office Visit [facility] [address] [place] [phone] Carie Camargo MD Type 2 diabetes mellitus with hyperglycemia, without long-term current use of insulin (HCC) (Primary Dx); Benign hypertension; Pure hypercholesterolemia; Erectile dysfunction associated with type 2 diabetes mellitus (HCC); Abdominal distension; Forgetfulness; Chronic midline low back pain without sciatica; Overweight; Dietary counseling; Exercise counseling; Primary osteoarthritis of right knee 08/29/2025 Results Follow-Up [facility] [address] [place] [id number] Carie Camargo MD XR Knee 3 Views Right 08/29/2025 Travel 08/28/[address] [address] Carie Camargo MD chart prep 08/15/2025 Patient Outreach [address] [address] Carie Camargo MD Pre-visit Planning (SDOH screening negative and tobacco screening negative) 08/07/2025 11:00 AM EST Office Visit [facility] [address] [place] [address] Raza, Suzie, OD Diabetes type 2, no ocular involvement (HCC) (Primary Dx); Low-tension glaucoma of both eyes, unspecified glaucoma stage; Macular scar of both eyes; Meibomian gland disease of both eyes, unspecified eyelid; Pseudophakia of both eyes; Presbyopia 08/07/2025 Travel 07/19/2025 Telephone [facility] [address] [place] [phone] Carie Camargo MD Call Back Request 07/12/2025 Refill [facility] [address] [place] [phone] Carie Camargo MD from Last 3 Months Immunizations Immunization Administration Dates Next Due Influenza High-dose Quadriva lent Preservative Free 09/16/2023,07/28/2022 Influenza Injectable Quadriv alant Preservative Free IIV4 MDCK 07/30/2021 Influenza injectable quadriv alent preservative free 06/17/2020,06/17/2018,07/07/2017,09/05 Influenza, High Dose Seasona l, Preservative Free 08/11/2025,06/02/2024,07/04/2019 Influenza, IIV3, injectable 07/31/2010 Influenza, Split (incl. [...] housing situation today? I have ctadan batista 08/15/[address] you [...] Sign Reading Time Taken Comments Blood Pressure 132/60 08/29/2025 9:59 AM EST Pulse 85 08/29/2025 9:59 AM EST Temperature 36.1 C (96.9 F) 08/29/2025 9:59 AM EST Respiratory Rate 20 08/29/2025 9:59 AM EST Oxygen Saturation 97% 08/29/2025 9:59 AM EST Inhaled Oxygen Concentration - - Weight 74.7 kg (164 lb 9.6 oz) 08/29/2025 9:59 A M EST Height 167.6 cm (5' 6 ) 08/29/2025 9:59 AM EST Body Mass Index 26.57 08/29/2025 9:59 AM EST Plan of Treatment Upcoming Encounters Date Type Department Care Team (Late st Contact Info) Description 10/30/2025 3:15 PM EST Office Visit [facility] [address] [place] [address] Carie Camargo MD [address] [place] [address] 02/05/2026 11:00 AM EDT Office Visit [facility] [address] [place] [address] Suzie Person, OD [address] [place] [address] Health Maintenance Due Date Last Done Comments CT Colonography 1955 Dental Prophylaxis 1955 FIT DNA/Cologuard 1955 FIT 1955 FOBT 1955 Sigmoidoscopy 1955 Dental X-Ray: Bitewings 02/10/2018 02/09/2017 DTaP/Tdap/Td Vaccines (2 - Td or Tdap) 06/06/2023 06/06/2013, 03/10/2002 Diabetes: Urine Protein Screening 07/28/2023 07/28/2022, 06/13/2020 Dental Oral Exam 05/11/2025 11/10/2024, 02/09/2017 COVID-19 Vaccine ( season) 2025 01/24/2022, 03/26/2021, 02/26/2021 Lipid Panel 05/28/2025 05/28/2024, 04/21, 07/28/2022, Additional history exists Depression Screening 08/05/2025 08/05/2024, 08/05/20 24 Diabetes: Hemoglobin A1C 02/27/2026 025, 12/07/2024, 06/02/2024, Additional history exists SDOH Screening 08/15/2026 08/15/2025 Alcohol/Substance Use Screening 08/29/2026 08/29/2025 Diabetes: Foot Exam 08/29/2026 08/29/2025, 08/29/2025, 08/29/2025, Additional history exists Tobacco Screening 09/01/2026 09/01/2025 Eye Exam 08/07/2027 08/07/2025, 07/22, 08/07/2025, Additional history exists Dental X-Ray: Full Mouth 11/11/2027 11/10/2024, 01/20 RSV Patients and Patients Aged 60 years or older (1 - 1-dose 75+ series) 2028 Colonoscopy 08/30/2034 08/30/2024, 04/27/2018 Colorectal Cancer Screening 08/30/2034 Hepatitis C Screening Completed 04/30/2023 Pneumococcal Vaccine: 50+ Years Completed 11/04/2023, 10/05/2013 Zoster Vaccines Completed 11/04/2023, 09/16/2023 Influenza Vaccine Completed 08/11/2025, , 09/16/2023, Additional history exists HIB Vaccines Aged Out [...] on patient's age to complete this topic Goals Goal Patient Goal Type Associated Problems Recent Progress Patient-Stated? Author Help patients manage their type 2 diabetes Care Plan Help patients manage their type 2 diabetes No Pedro Personn, OD Weekly blood pressure task Care Plan Weekly blood pressure task No Raza Suzie, OD Help patients manage their type 2 diabetes Care Plan Help patients manage their type 2 diabetes No Raza Suzie, OD Patient has chronic kidney disease Care Plan Patient has chronic kidney disease No RazaPedron, OD Weekly blood pressure task Care Plan Weekly blood pressure task No Raza Suzie, OD Patient has chronic kidney disease Care Plan Patient has chronic kidney disease No Pedro Personn, OD Weekly blood pressure task Care Plan [...] Care Plan Weekly blood pressure task No [place] Guo [place] Weekly blood pressure task Care Plan Weekly blood pressure task No Quincy-Justo es, [place], [place] Patient has chronic kidney disease Care Plan Patient has chronic kidney disease No Nadya chairez [place] Patient has chronic kidney disease Care Plan Patient has chronic kidney disease No Nadya chairez [place] Weekly blood pressure task Care Plan Weekly blood pressure task No Nadya chairez [place] Weekly blood pressure task Care Plan Weekly blood pressure task No Nadya hcairez [place] Patient has chronic kidney disease Care Plan Patient has chronic kidney disease No Nadya chairez [place] Patient has chronic kidney disease Care Plan Patient has chronic kidney disease No Nadya chairez, [place] Weekly blood pressure task Care [...] Weekly blood pressure task No Arleen Hdez Patient has chronic kidney disease Care Plan Patient has chronic kidney disease No Arleen Hdez Patient has chronic kidney disease Care Plan Patient has chronic kidney disease No Arleen Hdez Weekly blood pressure task [...] Care Plan Weekly blood pressure task No Romy Arango Weekly blood pressure task Care Plan Weekly blood pressure task No Romy Arango Patient has chronic kidney disease Care Plan Patient has chronic kidney disease No Romy Arango Patient has chronic kidney disease Care Plan Patient has chronic kidney disease No Romy Arango Weekly blood pressure task Care Plan Weekly blood pressure task No Naya Mathew Weekly blood pressure task Care Plan Weekly blood pressure task No Naya Mathew Patient has chronic kidney disease Care Plan Patient has chronic kidney disease No Naya Mathew Patient has chronic kidney disease Care Plan Patient has chronic kidney disease No Quin[place], Naya Procedures Procedure Name Priority Date/Time Associated Diagnosis Comments US ABDOMEN COMPLETE Routine 08/31/2025 9 :41 AM EST XR KNEE 3 VIEWS RIGHT Routine 08/29/2025 10:50 AM EST Primary osteoarthritis of right knee POCT GLYCATED HEMOGLOBIN, TOTAL Routine 08/29/2025 10:05 AM EST Type 2 diabetes mellitus with hyperglycemia, without long-term current use of insulin (HCC) POCT GLUCOSE (CPT-81256) Routine 08/29/2025 10:00 AM EST Type 2 diabetes mellitus with hyperglycemia, without long-term current use of insulin (HCC) OCT, RETINA - OU - BOTH EYES Routine 08/07/2025 11:00 AM EST Macular scar of both eyes OCT, OPTIC NERVE - OU - BOTH EYES Routine 08/07/2025 11:00 AM EST Low-tension glaucoma of both eyes, unspecified glaucoma stage PANORAMIC RADIOGRAPHIC IMAGE Routine 11/10/2024 2:30 PM [...] Recently Relevant to Health Maintenance Results * US Abdomen Complete (08/31/2025 9:41 AM EST) Anatomical Region Laterality Modality Abdomen Ultrasound 08/31/2025 9:41 AM EST Narrative 08/31/2025 9:42 AM EST [address] [address] Ultrasound Report Signed Patient: Rajan Walker MR#: [id number] 99 : 1955 Acct:[id number] Age/Sex: 70 / M ADM Date: 08/30/25 Loc: HO.US Attending Dr: Desi SANDERS Ordering Physician: Desi Benoit Date of Service: 08/30/25 Procedure(s): US abdomen complete Accession Number(s): [id number] cc: Carie Camargo MD; eDsi BenoitHOMAR Reason for Exam: R10.9 - Unspecified abdominal pain CLINICAL HISTORY: R10.9 - Unspecified abdominal pain US abdomen complete with duplex and color Doppler Comparison: US/TX/SR - US ABDOMEN - 09/16/23 09:30 EST Findings: The visualized pancreas, aorta, and inferior vena cava are unremarkable. Liver normal size and diffusely echogenic. Right lobe 15.1 cm length. Focal fatty sparing near the gallbladder fossa. Common duct 4.0 mm diameter. Physiologic distention of the gallbladder. No gallstones or sludge. No gallbladder wall thickening. No pericholecystic fluid. No sonographic Gaspar sign. Main portal vein antegrade. Right kidney normal size, 10.4 cm in length. Normal cortical width and echotexture. Benign renal cortical cyst midpole measuring 1.4 x 1.4 x 1.5 cm.No nephrolithiasis. No hydronephrosis. Left kidney normal, 11.1 cm in length. Normal cortical width and echotexture. No solid or cystic renal masses. No nephrolithiasis. No hydronephrosis. Spleen measures 10.1 cm. No splenic masses. No ascites. No lymphadenopathy. Impression: 1. Hepatic steatosis with focal fatty sparing. 2. Benign renal cortical cyst on the right. This document has been electronically signed by: Waldemar Weathers MD on 08/31/2025 09:41:02 Dictated By: Waldemar Weathers MD Signed By: <Electronically signed by Waldemar Weathers MD in OV> 08/31/2542 DD/ 0 TD/TT: 08/31/25940 Operating Room Manager: Procedure Note Donotuseinterpreter, Image - 08/31/[address] [address] Ultrasound Report Signed Patient: Rajan Walker LMR#: [id number] [birth year] : 3Acct:[id number] Age/Sex: 70 / MADM Date: 08/30/25 Loc: HO.US Attending Dr: Desi Benoit VISITOR SERVICE ASSISTANT- Ordering Physician: Desi Benoit Date of Service: 08/30/25 Procedure(s): US abdomen complete Accession Number(s): [id number] cc: Carie Camargo MD; Desi Benoit [facility] Reason for Exam: R10.9 - Unspecified abdominal pain CLINICAL HISTORY: R10.9 - Unspecified abdominal pain US abdomen complete with duplex and color Doppler Comparison: US/TX/SR - US ABDOMEN - 09/16/23 09:30 EST Findings: The visualized pancreas, aorta, and inferior vena cava are unremarkable. Liver normal size and diffusely echogenic. Right lobe 15.1 cm length. Focal fatty sparing near the gallbladder fossa. Common duct 4.0 mm diameter. Physiologic distention of the gallbladder. No gallstones or sludge. No gallbladder wall thickening. No pericholecystic fluid. No sonographic Gaspar sign. Main portal vein antegrade. Right kidney normal size, 10.4 cm in length. Normal cortical width and echotexture. Benign renal cortical cyst midpole measuring 1.4 x 1.4 x 1.5 cm.No nephrolithiasis. No hydronephrosis. Left kidney normal, 11.1 cm in length. Normal cortical width and echotexture. No solid or cystic renal masses. No nephrolithiasis. No hydronephrosis. Spleen measures 10.1 cm. No splenic masses. No ascites. No lymphadenopathy. Impression: 1. Hepatic steatosis with focal fatty sparing. 2. Benign renal cortical cyst on the right. This document has been electronically signed by: Waldemar Weathers MD on 08/31/2025 09:41:02 Dictated By: Waldemar Weathers MD Signed By: <Electronically signed by Waldemar Weathers MD in OV> 08/31/25941 DD/ 0 TD/TT: 08/31/25940 Operating Room Manager: us [facility] External Provider IMG US PROCEDURES Edited Result - Final * XR Knee 3 Views Right (08/29/2025 10:50 AM EST) Anatomical Region Laterality Modality Lower Extremities, Knee Right Radiogra phic Imaging 08/29/2025 10:5 0 AM EST Narrative 08/29/2025 11:01 AM EST [facility] [address] [place] [address] XRay Report Signed Patient: Rajan Walker MR#: [id number] [birth year] : 1955 Acct:[id number] Age/Sex: 70 / M ADM Date: 08/29/25 Loc: .HHCX Attending Dr: Carie Camargo MD Ordering Physician: Carie Camargo MD Date of Service: 08/29/25 Procedure(s): XR knee RT 3V Accession Number(s): [id number] cc: Carie Camargo MD Reason for Exam: right knee pain/functional limitation EXAMINATION: XR KNEE, RIGHT CLINICAL INFORMATION: right knee pain/functional limitation COMPARISON: December 14, 2014 TECHNIQUE: AP view in standing position, lateral and sunrise views of the right knee. FINDINGS: Joint space narrowing involving medial lateral compartment without acute fracture or dislocation. Soft tissues cough secretions in the menisci region. Small volume suprapatellar bursa joint effusion. Vascular calcifications. No lytic or blastic lesions. 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 Small volume suprapatellar bursa joint effusion. Atherosclerosis disease, peripheral. Overall worsening since 2014. Electronically signed by: Edin Ardon MD 08/29/2025 10:58 AM EST Dictated By: Edin Bergman MD Signed By: <Electronically signed by Edin Valadez MD in OV> 08/29/25 1058 DD/ 1050 TD/TT: 08/29/25 105 Operating Room Manager: Procedure Note Jennifer, Image - 08/29/[address] [address] XRay Report Signed Patient: Rajan Walker LMR#: [id number] 99 : 1955cct:[id number] Age/Sex: 70 / MADM Date: 08/29/25 Loc: .HHX Attending Dr: Carie Camargo MD Ordering Physician: Carie Camargo MD Date of Service: 08/29/25 Procedure(s): XR knee RT 3V Accession Number(s): [id number] cc: Carie Camargo MD Reason for Exam: right knee pain/functional limitation EXAMINATION: XR KNEE, RIGHT CLINICAL INFORMATION: right knee pain/functional limitation COMPARISON: December 14, 2014 TECHNIQUE: AP view in standing position, lateral and sunrise views of the right knee. FINDINGS: Joint space narrowing involving medial lateral compartment without acute fracture or dislocation. Soft tissues cough secretions in the menisci region. Small volume suprapatellar bursa joint effusion. Vascular calcifications. No lytic or blastic lesions. 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 Small volume suprapatellar bursa joint effusion. Atherosclerosis disease, peripheral. Overall worsening since 2014. Electronically signed by: Edin Ardon MD 08/29/2025 10:58 AM EST Dictated By: Edin Bergman MD Signed By: <Electronically signed by Edin Valadez MDin OV> 08/29/25 1058 DD/ 1050 TD/TT: 08/29/25 105 Operating Room Manager: Carie Camargo MD IMG XR PROCEDURES Final Result * (ABNORMAL) POCT Hgb A1c (08/29/2025 10:05 AM EST) Hemoglobin A1C 6.9(A) 4.0 - 5.7 % QC Media Lot # [id number] Lot# Expiration Date , Blood 08/29/2025 10:0 5 AM EST Carie Camargo MD POINT OF CARE TEST ENTER /EDIT ORDERABLES Final Result * POCT Glucose (08/29/2025 10:00 AM EST) Glucose Blood, POC 108 60 - 200 mg/dL QC Media Lot # [id number] Lot# Expiration Date Blood Capillary blood specimen / Unknown 08/29/2025 10:00 AM EST Carie Camargo MD POINT OF CARE TEST ENTER /EDIT ORDERABLES Final Result * OCT, Retina - OU - Both Eyes (08/07/2025 11:00 AM EST) Narrative Suzie Person, OD - 09/01/2025 10:13 AM EST Images from the original result were not included. 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 Patient will return in 6 months for an IOP check. Will monitor vision at that appointment. Suzie Person OD OPHTH TOMOGRAPHY Final Result * OCT, Optic Nerve - OU - Both Eyes (08/07/2025 11:00 AM EST) Narrative Suzie Person, OD - 09/01/2025 10:00 AM EST Erroneous order Suzie Person OD OPHTH TOMOGRAPHY Final Result * Hm Colonoscopy (08/30/2024) Colonoscopy Normal Normal [facility] us Carie Camargo MD HEALTH MAINTENANCE Final Result Performing Organization Address [facility] Co de Phone Number [facility] [address] [place] [phone] * (ABNORMAL) Lipid Panel with Reflex to Direct LDL (05/28/2024 10:05 AM EDT) Triglycerides 96 <150 mg/dL [facility] Comment:Desirable Triglyceri de: less than 150 mg/dLBorderline High Triglyceride 150-199 mg/dLHigh Triglyceride: 200-499 mg/dLVery High Triglyceride: greater than or equal to 5OO mg/dL Cholesterol 182 <200 mg/dL [facility] Comment:Desirable Cholestero l: less than 200 mg/dLBorderline High Cholesterol: 200-239 mg/dLHigh Cholesterol: greater than 239 mg/dL LDL Cholesterol Calculated 111(H) <100 mg/dL [facility] Comment:Desirable LDL: less than 100 mg/dLNear Optimal/Above Optimal LDL: 110- 129 mg/dLBorderline High LDL: 130-159 mg/dLHigh LDL: 160-189 mg/dLVery High LDL: greater than or equal to 190 mg/dL HDL Cholesterol 52 >40 mg/dL [facility] Comment:Desirable HDL: great er than 40 mg/dL Note: This HDL assay may give artificially low results in patients with liver disease. Blood 05/28/2024 10:0 5 AM EDT 05/28/2024 10:05 AM EDT us Carie Camargo MD LAB BLOOD ORDERABLES Fin al Result Performing Organization Address [facility]/ZIP Co de Phone Number [facility] [address] [place] [phone] * Hepatitis Panel, General (04/30/2023 9:24 AM EDT) Hepatitis A IgM Nonreactive Nonreactive [facility] Comment:IgM antibodies to STRONG V not detected; does not exclude earlyacute or recovered HAV infection. ~Hepatitis B Surface Antibody NONREACTIVE Nonreactive [facility] Comment:Nonreactive: < 8.00 mIU/mL Hepatitis B Core Antibody Nonreactive Nonreactive [facility] Hepatitis C Antibody Nonreactive Nonreactive [facility] Comment:Antibodies to HCV no t detected; does not exclude early acuteHCV infection. Hepatitis B Surface Ag Negative Negative [facility] 04/30/2023 9:24 AM EDT 04/30/2023 11:32 AM EDT Carie Camargo MD LAB BLOOD ORDERABLES Fin al Result Performing Organization Address [facility] de Phone Number [facility] [address] [place] [phone] * ALBUMIN, RANDOM URINE W/CREATININE (07/28/2022 [...] MD LAB URINE ORDERABLES Fin al Result Performing Organization Address [facility] Co de Phone Number [facility] from Last 3 Months or Most Recently Relevant to Health Maintenance Additional Health Concerns Active Problems Noted Date [...] kidney disease 08/29/2025 Weekly blood pressure task 08/31/2025 Weekly blood pressure task 08/31/2025 Patient has chronic kidney disease 08/31/2025 Patient has chronic kidney disease 08/31/2025 Weekly blood pressure task 09/04/2025 Weekly blood pressure task 09/04/2025 Patient has chronic kidney disease 09/04/2025 Patient has chronic kidney disease 09/04/2025 Weekly blood pressure task 09/08/2025 Weekly blood pressure task 09/08/2025 Patient has chronic kidney disease 09/08/2025 Patient has chronic kidney disease 09/08/2025 Insurance [facility] ST[facility] OPTIONS (HMO D-SNP) DENTAL [facility] Care Teams Straddle Bug Operator Relationship Specialty Start Date End Date Carie Camargo MD [address] [place] [phone] PCP - General Family Medicine 05/08/17 Leisa Ibarra [address] [place] [address] Dental Ground Equipment Mechanic 11/10/24
--- OUTSIDE RECORDS SUMMARY | 2025-09-19 11:06 | XMS_ITS | Encounter Summary ---
Author Organization [employer] Address [address] [place] [address] Care Team Providers Care Refinery Operator Helper Crude Unit Name Role Phone Carie Camargo MD Primary Care Provider + Leisa Ibarra Unavailable Unavailable Reason for Visit * Reason Comments Med Refill Encounter Details Date Type Department Care Team ([facility] st Contact Info) Description 04/29/2025 Refill [facility] [address] [place], [place] [phone] Carie Camargo MD [address] [place] [address] Benign hypertension; Type 2 diabetes mellitus with hyperglycemia, without long-term current use of insulin ([facility]) Social History Tobacco Use Types [...] Description 10/30/2025 3:15 PM EST Office Visit [facility] [address] [place] [address] Carie Camargo MD [address] [place] [address] 02/05/2026 11:00 AM EDT Office Visit [facility] [address] [place] [address] Raza, Suzie, OD [address] [place] [address] documented as of this encounter Visit Diagnoses Diagnosis Benign hypertension Essential hypertension, benign Type 2 diabetes mellitus with hyperglycemia, without long-term current use of insulin (HCC) documented in this encounter Additional Health Concerns Assessment Noted Time PHQ-9 Depression Total Score: 0 08/05/20 24 10:44 AM EST documented as of this encounter Care Teams Refinery Operator Helper Crude Unit Relationship Specialty Start Date End Date Carie Camargo MD [address] [place] [phone] PCP - General Family Medicine 05/08/17 Leisa Ibarra [address] [place] [address] Dental Axle And Frame Mechanic 11/10/24 documented as of this encounter
--- OUTSIDE RECORDS SUMMARY | 2025-09-19 11:06 | XMS_ITS | Encounter Summary ---
Author Organization [employer] Address [address] [place] [address] Care Team Providers Care Senior Vice President Name Role Phone Carie Camargo MD Primary Care Provider + IbarraLeisa Unavailable Unavailable Reason for Visit * Reason Comments Med Refill Encounter Details Date Type Department Care Team ([facility] st Contact Info) Description 06/04/2025 Refill [facility] [address] [place] [address] Carie Camargo MD [address] [place] [address] Social History Tobacco Use Types Packs/Day Years [...] Description 10/30/2025 3:15 PM EST Office Visit [facility] [address] [place] [address] Carie Camargo MD [address] [place] [address] 02/05/2026 11:00 AM EDT Office Visit [facility] [address] [place] [address] Raza, Suzie, OD [address] [place] [address] documented as of this encounter Visit Diagnoses Not on filedocumented in this encounter Additional Health Concerns Assessment Noted Time PHQ-9 Depression Total Score: 0 08/05/20 24 10:44 AM EST documented as of this encounter Care Teams Senior Vice President Relationship Specialty Start Date End Date Carie Camargo MD [address] [place] [phone] PCP - General Family Medicine 05/08/17 Leisa Ibarra [address] [place] [phone] Dental Scheduling Assistant 11/10/24 documented as of this encounter
--- OUTSIDE RECORDS SUMMARY | 2025-09-19 11:06 | XMS_ITS | Encounter Summary ---
Author Organization [employer] Address [address] [place] [address] Care Team Providers Care Second Baker Name Role Phone Carie Camargo MD Primary Care Provider + Leisa Ibarra Unavailable Unavailable Reason for Visit * Reason Comments Med Refill Encounter Details Date Type Department Care Team ([facility] st Contact Info) Description 03/31/2025 Refill [facility] [address] [place], [place] [phone] Carie Camargo MD [address] [place] [address] Social History Tobacco Use Types Packs/Day Years [...] Description 10/30/2025 3:15 PM EST Office Visit [facility] [address] [place] [address] Carie Camargo MD [address] [place] [address] 02/05/2026 11:00 AM EDT Office Visit [facility] [address] [place] [address] Raza, Suzie, OD [address] [place] [address] documented as of this encounter Visit Diagnoses Not on filedocumented in this encounter Additional Health Concerns Assessment Noted Time PHQ-9 Depression Total Score: 0 08/05/20 24 10:44 AM EST documented as of this encounter Care Teams Second Baker Relationship Specialty Start Date End Date Carie Camargo MD [address] [place] [phone] PCP - General Family Medicine 05/08/17 Leisa Ibarra [address] [place] [phone] Dental Bakery Worker 11/10/24 documented as of this encounter
--- OUTSIDE RECORDS SUMMARY | 2025-09-19 11:06 | XMS_ITS | Encounter Summary ---
Author Organization [employer] Address [address] [place] [address] Care Team Providers Care Ski Edge Painter Name Role Phone Carie Camargo MD Primary Care Provider + Leisa Ibarra Unavailable Unavailable Reason for Visit * Reason Comments Med Refill Encounter Details Date Type Department Care Team ([facility] Contact Info) Description 08/12/2023 Refill [facility] [address] [place], [place] [phone] Carie Camargo MD [address] [place] [address] Social History Tobacco Use Types Packs/Day Years [...] the past 12 months, has t 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 to shut [...] Description 10/30/2025 3:15 PM EST Office Visit [facility] [address] [place] [address] Carie Camargo MD [address] [place] [address] 02/05/2026 11:00 AM EDT Office Visit [facility] [address] [place] [address] Raza, Suzie, OD [address] [place] [address] documented as of this encounter Visit Diagnoses Not on filedocumented in this encounter Care Teams Ski Edge Painter Relationship Specialty Start Date End Date Carie Camargo MD [address] [place] [phone] PCP - General Family Medicine 05/08/17 Leisa Ibarra [address] [place] [address] Dental Bender Machine 11/10/24 documented as of this encounter
--- OUTSIDE RECORDS SUMMARY | 2025-09-19 11:06 | XMS_ITS | Encounter Summary ---
Author Organization [employer] Address [address] [place] [address] Care Team Providers Care Data Security Consultant Name Role Phone Carie Camargo MD Primary Care Provider + IbarraLeisa Unavailable Unavailable Reason for Visit * Reason Comments Med Refill Encounter Details Date Type Department Care Team ([facility] st Contact Info) Description 06/07/2024 Refill [facility] [address] [place], [place] [phone] Carie Camargo MD [address] [place] [address] Type 2 diabetes mellitus with hyperglycemia, without long-term current use of insulin ([facility]) Social History Tobacco Use [...] Description 10/30/2025 3:15 PM EST Office Visit [facility] [address] [place] [address] Carie Camargo MD [address] [place] [address] 02/05/2026 11:00 AM EDT Office Visit [facility] [address] [place] [address] Raza, Suzie, OD [address] [place] [address] documented as of this encounter Visit Diagnoses Diagnosis Type 2 diabetes mellitus with hyperglycemia, without long-term current use of insulin (HCC) documented in this encounter Care Teams Data Security Consultant Relationship Specialty Start Date End Date Carie Camargo MD [address] [place] [phone] PCP - General Family Medicine 05/08/17 Leisa Ibarra [address] [place] [phone] Dental Immigration Case Manager 11/10/24 documented as of this encounter
--- OUTSIDE RECORDS SUMMARY | 2025-09-19 11:06 | XMS_ITS | Encounter Summary ---
Author Organization [employer] Address [address] [facility] [address] [place] [address] Care Team Providers Care Tree Trimming Line Technician Name Role Phone Carie Camargo MD Primary Care Provider + IbarraLeisa Unavailable Unavailable Encounter Details Date Type Department Care Team (Late st Contact Info) Description 08/13/2022 Abstract [facility] [address] [place] [address] ProviderAlexandrea MD Social History Tobacco Use Types [...] Description 10/30/2025 3:15 PM EST Office Visit [facility] [address] [place] [address] Carie Camargo MD [address] [place] [address] 02/05/2026 11:00 AM EDT Office Visit [facility] OPT[facility] [address] [place] [address] Suzie Person, OD [address] [place] [address] documented as of this encounter Visit Diagnoses Not on filedocumented in this encounter Care Teams Tree Trimming Line Technician Relationship Specialty Start Date End Date Carie Camargo MD [address] [place] [address] PCP - General Family Medicine 05/08/17 eLisa Ibarra [address] [place] [address] Dental Straightening Press Operator Helper 11/10/24 documented as of this encounter
[2025-09-19 11:35] LABS: MANUAL DIFF FLAG NO
[2025-09-19 11:38] LABS: Hematocrit 44.8 % (42.0-52.0); Hemoglobin 15.0 g/dl (14.0-18.0); Imm Gran Abs Auto 0.04 X10*3/uL (0.00-0.03); Imm Gran Pct Auto 0.6 % (0.0-0.4); Lymphocytes Absolute Auto 2.1 X10*3/uL (1.2-4.9); Mean Corpuscular HGB Conc 33.5 g/dl (31.0-36.0); Mean Corpuscular Hemoglobin 30.0 pg (27.0-33.0); Mean Corpuscular Volume 89.6 fL (80.0-98.0); NRBC Abs Auto 0.000 X10*3/uL (0.0-0.012); NRBC Pct Auto 0.0 /100WBC (0.0-0.2); Platelet Count 185 X10*3/uL (160-400); Red Blood Count 5.00 X10*6/uL (4.60-5.80); White Blood Count 6.3 X10*3/uL (4.8-10.8)
[2025-09-19 12:27] LABS: Anion Gap 12 (12-20); Blood Urea Nitrogen 17 mg/dL (9-16); Calcium 9.6 mg/dL (8.4-10.2); Carbon Dioxide 28 mmol/L (22-29); Chloride 107 mmol/L (96-108); Cholesterol 177 mg/dL (<200); Estimated Glomerular Filt Rate > 60; HDL Cholesterol 50 mg/dL (>40); Potassium 3.7 mmol/L (3.3-5.1); Sodium 143 mmol/L (135-145); Triglycerides 116 mg/dL (<150)
[2025-09-19 12:40] LABS: Folate 12.0 ng/mL (> or = 4.0); Vitamin B12 350 pg/mL (200-900)
[2025-09-19 12:47] LABS: Syphilis Screen Nonreactive (Nonreactive)
[2025-09-19 12:54] LABS: Reflex LDLD? No
[2025-09-19 13:04] LABS: Microalbum/Creatinine Ratio Ur 6.4 ug/mg cr (<30)
== END 2025-09-19 08:57 | disposition home or self-care (01) ==
LOC: HO.HHCL 08:56
PROVIDERS: PCP Internal Medicine; Visit Provider Internal Medicine
DX: E11.65 Type 2 diabetes mellitus with hyperglycemia (principal); E78.00 Pure hypercholesterolemia, unspecified; R68.89 Other general symptoms and signs; Z01.84 Encounter for antibody response examination
CPT/HCPCS: 36415; 80048; 80061; 82043; 82570; 82607; 82746; 84443; 85025; 86780